=== PATIENT | female | born 1960 | race Caucasian/White ===

== ENCOUNTER → 2018-06-07 11:18 | Outpatient (CLI) | payer OTHER, SELFPAY ==
--- NOTE | 2018-06-07 | DI.RAD.S_ITS ---
PROCEDURE: XR LUMBAR SPINE 2-3V INDICATIONS: LOW BACK PAIN TECHNIQUE: 2 views of the lumbar spine were acquired. COMPARISON: [facility], CR, XR LUMBAR SPINE 2 OR 3VW, 11/08/2014, 13:12. FINDINGS: Bones: 5 [id number] vertebrae are present. There is normal bony alignment. No new vertebral body compression fractures, and the L1 vertebral body previously present compression fracture appears stable over time. No suspicious bony lesions. Soft tissues: Overlying bowel gas pattern is normal. No suspicious soft tissue calcifications. IMPRESSION: Previously present moderately severe degenerative disc disease and facet osteoarthritis has only minimally worsened from 11/08/14. A prior moderate wedge compression fracture involving L1 is again noted without worsening, and no new compression fractures seen. Significant spinal or foraminal stenosis likely is present given the degree of degeneration seen. Dictated by: Alec Carvalho M.D. on 06/07/2018 at 13:27 Approved by: Alec Carvalho M.D. on 06/07/2018 at 13:29
--- NOTE | 2018-06-07 | DI.RAD.S_ITS ---
PROCEDURE: XR HIP W PEL IF DONE RT 2V INDICATIONS: RIGHT HIP PAIN TECHNIQUE: 2 views of the hip were acquired. COMPARISON: None. FINDINGS: Bones: No fractures or dislocations. No suspicious bony lesions. The visualized pelvic ring appears intact. Soft tissues: No suspicious soft tissue calcifications or masses. IMPRESSION: A mild degree of hip joint osteoarthritis appears present but no recent or chronic trauma is found. Dictated by: lAec Carvalho M.D. on 06/07/2018 at 13:29 Approved by: Alec Carvalho M.D. on 06/07/2018 at 13:30
== END ==
PROVIDERS: PCP Family Medicine
DX: M54.5 Low back pain (principal); M51.36 Other intervertebral disc degeneration, lumbar region; M47.816 Spondylosis without myelopathy or radiculopathy, lumbar region; M48.56XD Collapsed vertebra, not elsewhere classified, lumbar region, subsequent encounter for fracture with routine healing; M25.551 Pain in right hip; M16.11 Unilateral primary osteoarthritis, right hip
CPT/HCPCS: 72100; 73502

== ENCOUNTER → 2018-12-01 11:59 | Outpatient (CLI) | payer OTHER, SELFPAY ==
--- NOTE | 2018-12-01 | DI.MG.S_ITS ---
BILATERAL DIGITAL SCREENING MAMMOGRAM 3D/2D WITH CAD: 12/01/2018 CLINICAL: Routine screening. Family history of breast cancer. Comparison is made to exam dated: 07/10/2014 mammogram - [facility]. There are scattered fibroglandular elements in both breasts. Current study was also evaluated with a Computer Aided Detection (CAD) system. There is an oval equal density focal asymmetry in the left breast at 6 o'clock anterior depth. No other significant masses, calcifications, or other findings are seen in either breast. IMPRESSION: INCOMPLETE: NEEDS ADDITIONAL IMAGING EVALUATION Focal asymmetry in the left breast is indeterminate. A diagnostic mammogram with additional views with possible ultrasound are recommended. This exam was interpreted at Station ID: [id number]. NOTE: For mammograms, a report in lay terms will be sent to the patient. Approximately 15% of breast malignancies will not be visualized mammographically. In the management of a palpable breast mass, a negative mammogram must not discourage biopsy of a clinically suspicious lesion. Electronically Signed By: Felton Allen M.D. slc/:12/02/2018 08:08:44 letter sent: Additional Imaging Needed ACR BI-RADS Category 0: Incomplete [id number]
== END ==
PROVIDERS: PCP Family Medicine; Visit Provider Family Medicine
DX: Z12.31 Encounter for screening mammogram for malignant neoplasm of breast (principal); Z80.3 Family history of malignant neoplasm of breast
CPT/HCPCS: 77063; 77067

== ENCOUNTER → 2018-12-20 12:26 | Outpatient (CLI) | payer OTHER, MEDICAID, SELFPAY ==
--- NOTE | 2018-12-20 | DI.US.S_ITS ---
ULTRASOUND OF LEFT BREAST: 12/20/2018 CLINICAL: Patient returns today to evaluate an architectural distortion in the left breast. Comparison is made to exams dated: 12/20/2018 mammogram, 12/01/2018 mammogram - [facility], and 07/10/2014 mammogram - [facility]. Color flow and real-time ultrasound of the left breast were performed on the areas of interest. Malloy scale images of the real-time examination were reviewed. There is a 0.4 cm x 0.5 cm x 0.3 cm irregular mass in the left breast at 4 o'clock anterior depth. This irregular mass is hypoechoic. This correlates as an incidental finding. IMPRESSION: SUSPICIOUS OF MALIGNANCY The 0.4 cm x 0.5 cm x 0.3 cm irregular mass in the left breast is at a low suspicion for malignancy. An ultrasound guided biopsy is recommended. There is no sonographic abnormality seen in the left breast to correspond with the subtle mammography finding in the lower outer quadrant. This region is most consistent with normal fibroglandular tissue. This exam was interpreted at Station ID: [id number]. SUMMARY: This was discussed with the patient by the radiologist Dr. Pendleton at the time of the exam. Electronically Signed By: Elvia goode/:12/20/2018 15:39:11 letter sent: Biopsy Required Ultrasound BI-RADS: 4a Low suspicion for malignancy
--- NOTE | 2018-12-20 | DI.MG.S_ITS ---
UNILATERAL LEFT DIGITAL DIAGNOSTIC MAMMOGRAM 3D/2D WITH ADDITIONAL VIEWS: 12/20/2018 CLINICAL: Additional evaluation requested from prior study. Comparison is made to exams dated: 12/01/2018 mammogram - [facility] and 07/10/2014 mammogram - [facility]. There are scattered fibroglandular elements in left breast. The oval equal density focal asymmetry in the left breast at 6 o'clock anterior depth is less prominent on additional views. No other significant masses or calcifications are seen in the breast. IMPRESSION: INCOMPLETE: NEEDS ADDITIONAL IMAGING EVALUATION The oval equal density focal asymmetry in the left breast likely represents fibroglandular tissue but is indeterminate. A targeted ultrasound of the left breast is recommended and will be performed immediately following this exam. This exam was interpreted at Station ID: [id number]. NOTE: For mammograms, a report in lay terms will be sent to the patient. Approximately 15% of breast malignancies will not be visualized mammographically. In the management of a palpable breast mass, a negative mammogram must not discourage biopsy of a clinically suspicious lesion. Electronically Signed By: Elvia Serrano M.D. lk/:12/20/2018 13:41:31 ACR BI-RADS Category 0: Incomplete [id number]
== END ==
PROVIDERS: PCP Family Medicine; Visit Provider Family Medicine
DX: R92.8 Other abnormal and inconclusive findings on diagnostic imaging of breast (principal); N63.23 Unspecified lump in the left breast, lower outer quadrant
CPT/HCPCS: 76642; 77065; G0279

== ENCOUNTER → 2019-02-02 09:07 | Outpatient (CLI) | payer OTHER, MEDICAID, SELFPAY ==
--- NOTE | 2019-02-02 | DI.US.S_ITS ---
ULTRASOUND GUIDED BIOPSY LEFT BREAST USING VACUUM DEVICE WITH POST MAMMOGRAPHIC AND ULTRASOUND IMAGIN02/02/2019 CLINICAL: Left breast mass. PATIENT CONSENT: Risks (minor bleeding, infection, vasovagal reaction and repeat procedure), benefits and alternatives were explained to the patient and written informed consent was obtained. Correlation is made to exams dated: 12/20/2018 ultrasound, 12/20/2018 mammogram, 12/01/2018 mammogram - [facility], 07/10/2014 ultrasound, and 07/10/2014 mammogram - [facility]. An ultrasound guided biopsy using real-time ultrasound was performed for the oval mass located in the left breast at 4 o'clock anterior depth. This was described on the previous ultrasound report. The skin was prepped in the usual manner. Local anesthetic was administered to the access site. The abnormality was approached from the lateral aspect. A 13 gauge biopsy needle was placed adjacent to the abnormality under ultrasound guidance. Once the needle was documented to be in the correct location, five specimens were obtained using the Mammotome biopsy system. Post procedure mammographic and ultrasound imaging demonstrates the clip at the targeted area. The specimens were sent to the laboratory for pathological analysis. IMPRESSION: ULTRASOUND GUIDED BIOPSY BENIGN Ultrasound guided biopsy of the mass in the left breast anterior depth was successful. Pathology indicates benign stromal fibrosis with portions of cysts. Pathology results are concordant with imaging findings. Return to annual mammogram screening schedule is recommended. This exam was interpreted at Station ID: [id number]. Noman Watson M.D. fx,aty/:02/08/2019 19:21:40
--- NOTE | 2019-02-02 | PATH_ITS ---
[facility] Accession Number: [id number] . 01 Material submitted: . breast - LEFT BREAST 4:00 2 CM FN MASS . 01 Clinical history: . LEFT BREAST MASS . 01 Diagnosis: Left Breast, Mass At 4 o'clock, 2 cm From Nipple, Biopsy: Breast parenchyma with stromal fibrosis and portions of cyst wall. Negative for atypia, carcinoma in situ, and malignancy. MRV 02/05/2019 0729 Local . 01 Comment: Deeper levels are examined. Clinical and radiographic correlation is necessary. . 01 Electronically signed: . Regi Xavier MD, Pathologist NPI- [id number] . 01 Gross description: . Received one formalin-filled container labeled with the patient's name and designated left breast 4 o'clock 2 cm FN mass. The specimen is received with a plastic filter in container, sample loose in container and consists of multiple yellow-amaya, rough, partially cylindrical-shaped portions of tissue with an average diameter of 0.2-0.3 cm and range in length from 0.6 cm to 1.4 cm. The specimen is entirely submitted in one cassette. No collection date or time on container. Admitting date per requisition: 02/02/19. Order time per requisition: 10:10. Possible total fixation time: Approximately 12 hours. ([id number]) /FRJuan M 02/03/2019224 Local . 01 Pathologist provided ICD-10: N63.0 . 01 CPT . 619474 Performed at: 01 [facility] [address] [place] [address], [place], [place] [id number] MD Michael Elizabeth MD Phone: [phone]
--- NOTE | 2019-02-02 | DI.MG.S_ITS ---
UNILATERAL LEFT DIGITAL DIAGNOSTIC MAMMOGRAM POST-NEEDLE BIOPSY: 02/02/2019 CLINICAL: Abnormal Mammogram. Comparison is made to exams dated: 12/20/2018 mammogram, 12/01/2018 mammogram - [facility], 07/10/2014 ultrasound, and 07/10/2014 mammogram - [facility]. There are scattered fibroglandular elements in left breast. There is a marker clip in the appropriate position in the left breast at 4 o'clock at the biopsy site. IMPRESSION: POST PROCEDURE MAMMOGRAM FOR MARKER PLACEMENT There was a successful marker clip placement in the left breast at the biopsy site This exam was interpreted at Station ID: [id number]. NOTE: For mammograms, a report in lay terms will be sent to the patient. Approximately 15% of breast malignancies will not be visualized mammographically. In the management of a palpable breast mass, a negative mammogram must not discourage biopsy of a clinically suspicious lesion. Electronically Signed By: Noman Syed M.D. fx/:02/02/2019 11:25:18 ACR BI-RADS Category Post-procedure mammogram for marker placement
== END ==
PROVIDERS: PCP Family Medicine; Visit Provider Family Medicine
DX: N60.32 Fibrosclerosis of left breast (principal); N60.02 Solitary cyst of left breast
CPT/HCPCS: 19083; 77065

== ENCOUNTER 2019-04-16 17:16 | Emergency (ER) | payer OTHER, MEDICAID, SELFPAY ==
[2019-04-16 17:26] VITALS: BP 150/73; PULSE 65; RESP 18; TEMP 36.9; O2SAT 97; BMI 30.9
[2019-04-16 18:10] LABS: Add Manual Diff / Slide Review NO; Basophils Absolute Auto 100 /uL (0-100); Basophils Percent Auto 0.6 % (0-2); Eosinophils Absolute Auto 100 /uL (0-450); Eosinophils Percent Auto 1.4 % (2-4); Hematocrit 40.6 % (36-46); Hemoglobin 13.7 g/dL (12.0-16.0); Lymphocytes Absolute Auto 2400 /uL (1100-4500); Lymphocytes Percent Auto 24.3 % (25-40); Mean Corpuscular HGB Conc 33.6 % (30-36); Mean Corpuscular Hemoglobin 31.5 PG (26-34); Mean Corpuscular Volume 93.9 fL (80-100); Monocytes Absolute Auto 700 /uL (0-900); Monocytes Percent Auto 6.9 % (3-14); Neutrophils Absolute Auto 6600 /uL (1500-7000); Neutrophils Percent Auto 66.8 % (50-75); Platelet Count 252 X10^3/uL (150-400); Red Blood Cell Count 4.33 X10^6/uL (4.0-5.2); Red Cell Distribution Width 13.4 % (11.6-14.8); White Blood Cell Count 9.9 X10^3/uL (4.5-11.0)
[2019-04-16 18:11] LABS: Alanine Aminotransferase 25 IU/L (<35); Albumin 4.3 g/dL (3.5-5.0); Albumin Globulin Ratio 1.3 (1.0-2.8); Alkaline Phosphatase 90 U/L (38-126); Aspartate Aminotransferase 31 IU/L (14-36); Bilirubin Total 0.3 mg/dL (0.2-1.3); Blood Urea Nitrogen 21 mg/dL (7-17); Calcium 9.2 mg/dL (8.4-10.2); Carbon Dioxide 27 mmol/L (22-32); Chloride 106 mmol/L (98-107); Estimated Glomerular Filt Rate > 60.0 mL/min (>60); Globulin 3.3 g/dL (1.7-4.1); Glucose 106 mg/dL (80-110); HEMOLYSIS < 15 (0-50); Potassium 4.4 mmol/L (3.4-5.1); Sodium 140 mmol/L (137-145); Total Protein 7.6 g/dL (6.3-8.2)
--- NOTE | 2019-04-16 19:44 | ED_ITS ---
HPI - Back Pain/Injury General Chief Complaint: Back Pain/Injury Stated Complaint: patient states possible kidney stone Time Seen by Provider: 04/16/19 19:44 Source: patient Mode of arrival: Ambulatory Limitations: no limitations History of Present Illness HPI Narrative: 59F Smoker with recent parathyroid surgery presents with 5-7 days of right flank pain that now radiates into her groin. She denies any provocati on or palliation. She denies fever or chills. She denies any trouble with urination. She denies any history of kidney stones. She denies any trouble with bowel movements. She was sent here from the walk-in clinic for evaluation of possible kidney stone MD Complaint: back pain Onset (ago): day(s) Duration: intermittent Similar Symptoms Previously: No Location: right flank Severity: moderate Quality: sharp Radiation: groin Relieving factors: none Exacerbating factors: none Related Data Home Medications Medication Instructions Recorded Confirmed atorvastatin 40 mg PO HS #0 02/04/16 04/16/19 fluoxetine 40 mg capsule 40 mg PO DAILY 04/16/19 04/16/19 omeprazole 20 mg capsule,delayed 20 mg PO DAILY 04/16/19 04/16/19 release Previous Rx's Medication Instructions Recorded benzonatate [Tessalon Perles] 100 mg PO BID #30 cap 02/04/16 hydrocodone-acetaminophen 1 tab PO Q4-6H PRN #10 tab 04/16/19 ketorolac 10 mg PO Q6H PRN #14 tab 04/16/19 ondansetron 4 mg PO TID-QID PRN #10 tab 04/16/19 tamsulosin [Flomax] 0.4 mg PO DAILY #10 cap 04/16/19 Allergies Allergy/AdvReac Type Severity Reaction Status Date / Time terbinafine [From LAMISIL] Allergy Unknown Unverified 04/16/19 16:55 Review of Systems Constitutional Constitutional: Denies chills, Denies fatigue, Denies fever(s), Denies frequent falls, Denies lethargy and Denies weakness Eyes Eyes: Denies change in vision, Denies eye discharge, Denies irritation and Denies loss of vision ENT Ears, Nose, Mouth, and Throat: Denies change in voice, Denies dizziness, Denies neck pain, Denies sore throat and Denies throat swelling Cardiovascular Cardiovascular: Denies chest pain, Denies irregular heart rhythm, Denies lightheadedness, Denies palpitations, Denies dyspnea, Denies dyspnea on exertion and Denies orthopnea Respiratory Respiratory: Denies cough, Denies dyspnea, Denies dyspnea on exertion and Denies wheezing Gastrointestinal Gastrointestinal: Denies abdominal pain, Denies change in bowel habits, Denies diarrhea, Denies nausea and Denies vomiting Genitourinary Genitourinary: Denies hematuria, Reports flank pain, Denies urinary incontinence and Denies urinary urgency Musculoskeletal Musculoskeletal: Reports back pain, Denies muscle weakness, Denies neck pain, Denies numbness and Denies tingling Integumentary/Breasts Skin/Breast: Denies pruritus, Denies erythema, Denies rash and Denies wounds Neurologic Neurologic: Denies behavioral changes, Denies confusion, Denies dizziness, Denies frequent falls, Denies loss of vision, Denies numbness, Denies tingling and Denies weakness Psychiatric Psychiatric: Denies anxiety, Denies behavioral changes, Denies confusion, Denies depression, Denies homicidal ideation and Denies suicidal ideation Endocrine Endocrine: Denies fatigue, Denies flushing and Denies palpitations Hematologic/Lymphatic Hematologic/Lymphatic: Denies easy bruising Allergic/Immunologic Allergic/Immunologic: Denies urticaria, Denies throat swelling and Denies wheezing Patient History Social History Smoking Status: Former smoker Smoking Status: Former smoker Exam Narrative Exam Narrative: GENERAL: [59] year old patient appears stated age. Well- nourished, well-developed patient, in mild distress. HEAD: Atraumatic. Normocephalic. EYES: Pupils equal round and reactive. Extraocular motions intact. No scleral icterus. No injection or drainage. ENT: Nose without bleeding, purulent drainage. Throat without erythema, tonsillar hypertrophy or exudate. Airway patent. NECK: Trachea midline. Non tender CARDIOVASCULAR: Regular rate and rhythm without murmurs, gallops, or rubs. RESPIRATORY: Clear to auscultation. Breath sounds equal bilaterally. No wheezes, rales, or rhonchi. GASTROINTESTINAL: Abdomen soft, non-tender, nondistended. EXTREMITIES: No edema or joint tenderness. BACK: Nontender without deformity or crepitance. No flank tenderness. NEURO: AOx3. SKIN: No rash or erythema of visible areas Initial Vital Signs Initial Vital Signs: Vital Signs Temperature 98.4 F 04/16/19 17:26 Pulse Rate 65 04/16/19 17:26 Respiratory Rate 18 04/16/19 17:26 Blood Pressure 150/73 H 04/16/19 17:26 Pulse Oximetry 97 04/16/19 17:26 Course Course Course Narrative: Patient has near complete resolution of symptoms after the above-stated therapies Orders Ordered: Discontinued Medications Hydrocodone Bitart/Acetaminophen (Vicodin 5/325 Prepack) 1 bottle MISC SEEINSTR ONE Stop: 04/16/19 21:06 Last Admin: 04/16/19 21:34 Dose: 1 bottle Documented by: PATRICIA Sodium Chloride (Normal Saline 0.9%) 1,000 mls @ 1,000 mls/hr IV BOLUS ONE Stop: 04/16/19 20:43 Last Infusion: 04/16/19 21:35 Dose: 0 mls/hr Documented by: Admin: 04/16/19 20:21 Dose: 1,000 mls/hr Documented by: FREDY Ketorolac Tromethamine (Toradol) 15 mg IV NOW ONE Stop: 04/16/19 19:45 Last Admin: 04/16/19 20:19 Dose: 15 mg Documented by: FREDY Ondansetron HCl (Zofran Odt Prepack) 1 bottle MISC SEEINSTR ONE Stop: 04/16/19 21:06 Last Admin: 04/16/19 21:34 Dose: 1 bottle Documented by: PATRICIA Vital Signs Vital signs: Vital Signs - 8 hr 04/16/19 17:26 Temperature 98.4 F Pulse Rate 65 Respiratory Rate 18 Blood Pressure 150/73 H Pulse Oximetry 97 MDM - Back Pain/Injury Lab Data Result diagrams: 04/16/19 17:51 04/16/19 17:51 Labs: Lab Results 04/16/19 04/16/19 Range/Units 17:51 17:51 WBC 9.9 (4.5-11.0) X10^3/uL RBC 4.33 (4.0-5.2) X10^6/uL Hgb 13.7 (12.0-16.0) g/dL Hct 40.6 (36-46) % MCV 93.9 (80-100) fL MCH 31.5 (26-34) PG MCHC 33.6 (30-36) % RDW 13.4 (11.6-14.8) % Plt Count 252 (150-400) X10^3/uL Neut % (Auto) 66.8 (50-75) % Lymph % (Auto) 24.3 L (25-40) % [place] % (Auto) 6.9 (3-14) % Eos % (Auto) 1.4 L (2-4) % Baso % (Auto) 0.6 (0-2) % Neut # (Auto) 6600 (3560-8636) /uL Lymph # (Auto) 2400 (7246-5481) /uL [place] # (Auto) 700 (0-900) /uL Eos # (Auto) 100 (0-450) /uL Baso # (Auto) 100 (0-100) /uL Sodium 140 (137-145) mmol/L Potassium 4.4 (3.4-5.1) mmol/L Chloride 106 (98-107) mmol/L Carbon Dioxide 27 (22-32) mmol/L BUN 21 H (7-17) mg/dL Creatinine 0.70 (0.52-1.04) mg/dL Estimated GFR > 60.0 (>60) mL/min BUN/Creatinine Ratio 30.0 H (6-22) Glucose 106 (80-110) mg/dL Calcium 9.2 (8.4-10.2) mg/dL Total Bilirubin 0.3 (0.2-1.3) mg/dL AST 31 (14-36) IU/L ALT 25 (<35) IU/L Alkaline Phosphatase 90 (38-126) U/L Total Protein 7.6 (6.3-8.2) g/dL Albumin 4.3 (3.5-5.0) g/dL Globulin 3.3 (1.7-4.1) g/dL Albumin/Globulin Ratio 1.3 (1.0-2.8) Imaging Data CT scan - abdomen/pelvis: Radiologist's Impression: Flaca Burger K 59 F [address] [address] [address] Scan Report Signed Patient: Flaca Burger KMR#: [id number] : 9Acct:[id number] Age/Sex: 59 / FDate of Service: 04/16/19 Loc: ED Accession Number: [id number] Procedure: CT kidney ureter bladder (KUB) Ordering Provider: Reilly Walsh D.O. PROCEDURE: CT KIDNEY URETER BLADDER (KUB) INDICATIONS: L flank pain, hematuria TECHNIQUE: Noncontrast 5 mm thick sections acquired from the diaphragms to the symphysis. 5 mm thick coronal and sagittal reformats were then performed. For radiation dose reduction, the following was used: automated exposure control, adjustment of mA and/or kV according to patient size. COMPARISON: [facility], CR, XR LUMBAR SPINE 2-3V, 06/07/2018, 11:40. FINDINGS: Image quality: Excellent. Lung bases: Lung bases are clear. Heart size is normal. Urinary system: Both kidneys are normal in size. A 3 mm stone noted in the right UVJ causing mild to moderate right-sided hydronephrosis. No left-sided renal stone or hydronephrosis. There is mild right perinephric stranding which could be due to hydronephrosis, however superimposed urinary tract infection/pyelonephritis cannot be excluded by imaging alone. Bladder wall thickness is normal; no calcified bladder stones. Other solid organs: Liver is normal in size. Gallbladder is normal. Pancreas is normal in contours. Spleen is normal in size. No adrenal nodules. Peritoneum and bowel: Unenhanced bowel loops demonstrate normal wall thickness and caliber. No free fluid or air. The appendix is normal. Nodes and vessels: No retroperitoneal or mesenteric adenopathy by size criteria. Aorta and inferior vena cava are normal in caliber. Scattered atherosclerotic calcifications involving the abdominal and pelvic vasculature. Abdominal wall: No ventral hernias. Pelvis: No free pelvic fluid. No inguinal adenopathy. Small fat containing left inguinal hernia. Bones: No suspicious bony lesions. Chronic appearing L1 compression deformity is stable compared to prior plain film radiograph series. No acute vertebral body compression fractures. Spine degenerative disc disease and facet arthropathy. IMPRESSION: 1. 3 mm stone in the right UVJ causing mild to moderate right-sided hydronephrosis. 2. No left-sided renal stone or hydronephrosis. 3. Mild right perinephric stranding which could be related to hydronephrosis ve rsus superimposed urinary tract infection. Recommend correlation with urinalysis data. Dictated by: Jessie Casillas MD, PhD on 04/16/2019 at 20:25 Approved by: Jessie Casillas MD, PhD on 04/16/2019 at 20:30 Discharge Plan Departure Patient Disposition: Home Clinical Impression: Kidney stone on right side Discharge Date/Time: 04/16/19 21:33 Instructions: Kidney Stones -- Adult Activity Restrictions/Additional Instructions: *You have been diagnosed with [ R sided kidney stone ] *What to do: *Take medications as directed *Follow up with your primary care provider in 2-3 days, call for an appointment. Let them know you were seen in the Emergency Department and that we ask that you be seen in follow up *Return to ER if you should have any new, worsening or concerning symptoms, such as [fever, shaking chills, vomiting, worsening pain or other bothersome symptoms ] Prescriptions: New hydrocodone-acetaminophen 5-325 mg tablet 1 tab PO Q4-6H PRN (Reason: pain) Qty: 10 RF: 0 ketorolac 10 mg tablet 10 mg PO Q6H PRN (Reason: pain) Qty: 14 RF: 0 tamsulosin [Flomax] 0.4 mg capsule 0.4 mg PO DAILY Qty: 10 RF: 0 ondansetron 4 mg tablet,disintegrating 4 mg PO TID-QID PRN (Reason: nausea and vomiting) Qty: 10 RF: 0 No Action fluoxetine 40 mg capsule 40 mg PO DAILY RF: 0 omeprazole 20 mg capsule,delayed release(DR/EC) 20 mg PO DAILY RF: 0 atorvastatin 40 MG tablet 40 mg PO HS Qty: 0 RF: 0 benzonatate [Tessalon Perles] 100 MG capsule 100 mg PO BID Qty: 30 RF: 0 Referrals: Krystal Thornton MD [Primary Care Provider] -
[2019-04-16] MEDS: KETOROLAC 60 MG/2 ML VIAL 15 MG IV (20:19)
[2019-04-16] MEDS: SODIUM CHLORIDE 0.9% 1,000 ML 1000 ML IV (20:21)
[2019-04-16 21:28] VITALS: BP 145/74; PULSE 65; RESP 16; O2SAT 98
--- NOTE | 2019-04-16 21:33 | PC.NURSE ---
right ac iv, dc , catheter all intact.
[2019-04-16] MEDS: ONDANSETRON 4 MG ODT PREPACK 1 BOTTLE MISC (21:34)
[2019-04-16] MEDS: HYDROCODONE/ACET 5/325 PREPACK 1 BOTTLE MISC (21:34)
== END 2019-04-16 21:33 | disposition home or self-care (01) ==
PROVIDERS: Emergency Medicine; Emergency Provider Emergency Medicine; PCP Family Medicine
DX: N20.0 Calculus of kidney (principal)
CPT/HCPCS: 36415; 74176; 80053; 85025; 87086; 96361; 96374; 99284; J1885

== ENCOUNTER → 2019-08-24 10:57 | Outpatient (CLI) | payer OTHER, MEDICAID, SELFPAY ==
--- NOTE | 2019-08-24 11:11 | DI.CT.S_ITS ---
PROCEDURE: CT ABDOMEN PELVIS WO CON INDICATIONS: Calculus of kidney TECHNIQUE: Noncontrast 5 mm thick sections acquired from the diaphragms to the symphysis. 5 mm thick coronal and sagittal reformats were then performed. For radiation dose reduction, the following was used: automated exposure control, adjustment of mA and/or kV according to patient size. COMPARISON: [facility], CT, CT KIDNEY URETER BLADDER (KUB), 04/16/2019, 19:49. FINDINGS: Image quality: Excellent. Lung bases: Lung bases are clear. Heart size is normal. Urinary system: Both kidneys are normal in size. No kidney stones. No hydronephrosis or perinephric fat stranding. Both ureters appear non-dilated throughout their expected courses. Bladder wall thickness is normal; no calcified bladder stones. Other solid organs: Liver is normal in size. Gallbladder appears normal. Pancreas is normal in contours. Spleen is normal in size. No adrenal nodules. Peritoneum and bowel: Unenhanced bowel loops demonstrate normal wall thickness and caliber. No free fluid or air. Nodes and vessels: No retroperitoneal or mesenteric adenopathy by size criteria. Aorta and inferior vena cava are normal in caliber. Abdominal wall: No ventral hernias. Pelvis: No free pelvic fluid. No inguinal hernias or adenopathy. Bones: No suspicious bony lesions. No vertebral body compression fractures. IMPRESSION: Resolution of the small far distal right ureteral stone causing hydronephrosis and hydroureter unilaterally rescanning 04/16/19. No residual hydronephrosis is present, the calculus appears to have completely passed from the urinary tract. Dictated by: Alec Carvalho M.D. on 08/24/2019 at 12:39 Approved by: Alec Carvalho M.D. on 08/24/2019 at 12:42
== END ==
PROVIDERS: PCP Family Medicine; Referring Provider Physician Assistant; Visit Provider Physician Assistant
DX: N20.0 Calculus of kidney (principal)
CPT/HCPCS: 74176

== ENCOUNTER 2020-03-07 05:59 | Emergency (ER) | payer OTHER, MEDICAID, SELFPAY ==
[2020-03-07 06:04] VITALS: BP 126/78; PULSE 66; RESP 12; TEMP 36.2; O2SAT 97; BMI 31.6
--- NOTE | 2020-03-07 06:07 | ED.ABDPAIN ---
HPI - Abdominal Pain General Chief Complaint: Urogenital-Female Stated Complaint: Think she has a Kidney stone on left side Time Seen by Provider: 03/07/20 06:07 Source: patient Mode of arrival: Ambulatory Limitations: no limitations History of Present Illness HPI narrative: Patient is a 59-year-old female who presents with left-sided flank pain. She is been ongoing for number of weeks and is now radiating around to her front. She was seen by her primary care doctor who thought it might be a pulled muscle. She has been taking NSAIDs without any relief. She occasionally gets nauseous. She does have a history of kidney stone she says this feels a little bit different previously she had urinary urgency which she does not have today. She has not had any fever or chills. She denies any injury MD complaint: flank pain Onset (ago): week(s) Pain Consistency: constant Location: L flank Severity: moderate Quality: sharp Radiation: LLQ Relieving factors: nothing Exacerbating factors: nothing Related Data Home Medications Medication Instructions Recorded Confirmed atorvastatin 40 mg PO HS #0 02/04/16 04/16/19 fluoxetine 40 mg capsule 40 mg PO DAILY 04/16/19 04/16/19 omeprazole 20 mg capsule,delayed 20 mg PO DAILY 04/16/19 04/16/19 release Previous Rx's Medication Instructions Recorded benzonatate [Tessalon Perles] 100 mg PO BID #30 cap 02/04/16 hydrocodone-acetaminophen 1 tab PO Q4-6H PRN #10 tab 04/16/19 ketorolac 10 mg PO Q6H PRN #14 tab 04/16/19 ondansetron 4 mg PO TID-QID PRN #10 tab 04/16/19 tamsulosin [Flomax] 0.4 mg PO DAILY #10 cap 04/16/19 cyclobenzaprine 5 mg PO TID PRN #10 tab 03/07/20 Allergies Allergy/AdvReac Type Severity Reaction Status Date / Time terbinafine [From LAMISIL] Allergy Unknown Unverified 03/07/20 06:11 Review of Systems Review of Systems Narrative: GENERAL: Denies chills, fatigue, malaise, fever, sweats, travel HEENT: Denies sinus pain, ear pain, sore throat, difficulty swallowing, neck pain RESPIRATORY: Denies dyspnea, cough, wheezing, hemoptysis, sputum. CARDIOVASCULAR: Denies chest pain, palpitations, orthopnea, edema GASTROINTESTINAL: Denies nausea, vomiting, abdominal pain, diarrhea, constipation, melena. : Left flank pain, see HPI MUSCULOSKELETAL: Denies weakness, joint pain, or bony pain SKIN: No rash, no erythema, no pruritus NEUROLOGIC: Denies weakness, dizziness, headache, numbness, change in speech, confusion PSYCHIATRIC: No concerning psychosocial issues. 12 point review of systems is negative except for those stated above and HPI Patient History Social History Smoking Status: Former smoker Smoking Status: Former smoker Exam Initial Vital Signs Initial Vital Signs: Vital Signs Temperature 97.2 F L 03/07/20 06:04 Pulse Rate 66 03/07/20 06:04 Respiratory Rate 12 03/07/20 06:04 Blood Pressure 126/78 03/07/20 06:04 Pulse Oximetry 97 03/07/20 06:04 GENERAL: Alert 59-year-old female appears uncomfortable and in no acute distress. HEENT: Head atraumatic,EOMI, pupils reactive, face symmetric, moist mucous membranes CARDIOVASCULAR: Regular rate and rhythm without murmurs, rubs or gallops. RESPIRATORY: Breath sounds equal bilaterally, no wheezes rales or rhonchi. ABDOMEN: Soft, nontender. Normoactive bowel sounds all 4 quadrants. No guarding or rebound. : Minimal left CVA tenderness EXTREMITIES: Normal range of motion, no clubbing or edema. Neurovascularly intact NEUROLOGICAL: Alert and oriented x4.Normal gait and speech. SKIN: Warm, dry, no laceration, no petechiae, no rashes or lesions. Course Orders Ordered: ED Orders 03/07/20 06:20 CT kidney ureter bladder (KUB) Stat Complete Blood Count AUTO DIFF Stat Comprehensive Metabolic Panel Stat Lipase Stat Discontinued Medications Cyclobenzaprine HCl (Cyclobenzaprine 10 Mg Tablet) 10 mg PO NOW ONE Stop: 03/07/20 06:56 Ketorolac Tromethamine (Ketorolac 60 Mg/2 Ml Vial) 15 mg IV NOW ONE Stop: 03/07/20 06:11 Last Admin: 03/07/20 06:16 Dose: 15 mg Documented by: Vital Signs Vital signs: Vital Signs - 8 hr 03/07/20 06:04 Temperature 97.2 F L Pulse Rate 66 Respiratory Rate 12 Blood Pressure 126/78 Pulse Oximetry 97 MDM - Abdominal Pain Lab Data Attestation: I reviewed the patient's lab results. Result diagrams: 03/07/20 06:20 03/07/20 06:20 Labs: Lab Results 03/07/20 03/07/20 Range/Units 06:20 06:20 WBC 9.9 (4.5-11.0) X10^3/uL RBC 4.45 (4.0-5.2) X10^6/uL Hgb 13.9 (12.0-16.0) g/dL Hct 41.8 (36-46) % MCV 93.8 (80-100) fL MCH 31.2 (26-34) PG MCHC 33.3 (30-36) % RDW 13.8 (11.6-14.8) % Plt Count 266 (150-400) X10^3/uL Neut % (Auto) 60.5 (50-75) % Lymph % (Auto) 29.3 (25-40) % [place] % (Auto) 7.8 (3-14) % Eos % (Auto) 1.9 L (2-4) % Baso % (Auto) 0.5 (0-2) % Neut # (Auto) 6000 (6302-8815) /uL Lymph # (Auto) 2900 (2897-5479) /uL [place] # (Auto) 800 (0-900) /uL Eos # (Auto) 200 (0-450) /uL Baso # (Auto) 100 (0-100) /uL Sodium 136 L (137-145) mmol/L Potassium 4.2 (3.4-5.1) mmol/L Chloride 104 (98-107) mmol/L Carbon Dioxide 29 (22-32) mmol/L BUN 17 (7-17) mg/dL Creatinine 0.66 (0.52-1.04) mg/dL Estimated GFR > 60.0 (>60) mL/min BUN/Creatinine Ratio 25.8 H (6-22) Glucose 95 (80-110) mg/dL Calcium 8.9 (8.4-10.2) mg/dL Total Bilirubin 0.4 (0.2-1.3) mg/dL AST 28 (14-36) IU/L ALT 24 (<35) IU/L Alkaline Phosphatase 62 (38-126) U/L Total Protein 7.1 (6.3-8.2) g/dL Albumin 4.0 (3.5-5.0) g/dL Globulin 3.1 (1.7-4.1) g/dL Albumin/Globulin Ratio 1.3 (1.0-2.8) Lipase 41 (23-300) U/L Point of care testing: Urine Dip Bedside Urine Glucose Negative Bedside Urine Bilirubin - Negative Bedside Urine Ketone - Negative Urine Specific [place] 1.025 Bedside Urine Occult Blood - Negative Bedside Urine pH 6.0 Bedside Urine Protein - Negative Bedside Urine Urobilinogen - Negative Bedside Urine Nitrite - Negative Bedside Urine Leukocytes - Negative Esterase Imaging Data CT scan - abdomen/pelvis: Radiologist's Impression: Preliminary report no evidence of colitis diverticulitis no obstructed obstructive uropathy or acute appendicitis MDM Narrative Medical decision making narrative: The patient likely has strained muscle. Although she does not remember any specific injury. Blood work and CT scan are overall reassuring Discharge Plan Departure Patient Disposition: Home Clinical Impression: Back strain Qualifiers: Encounter type: initial encounter Qualified Code(s): S39.012A - Strain of muscle, fascia and tendon of lower back, initial encounter Instructions: DI for Low Back Pain Activity Restrictions/Additional Instructions: *You have been diagnosed with back pain *What to do: At this time no evidence of infection or kidney stone. Increase activity as tolerated. Recommend heating pad and light stretching *Continue to take medications as directed Ibuprofen 600 mg every 6-8 hours if needed for [id number] pain Flexeril 5 mg every 8 hours if needed for muscle spasm--> SENT TO [facility] *Follow up with your primary care provider in 2-3 days *Return to ER if you should have increasing pain weakness or any new, worsening or concerning symptoms Prescriptions: New cyclobenzaprine 5 mg tablet 5 mg PO TID PRN (Reason: muscle spasm) Qty: 10 RF: 0 No Action fluoxetine 40 mg capsule 40 mg PO DAILY RF: 0 omeprazole 20 mg capsule,delayed release(DR/EC) 20 mg PO DAILY RF: 0 atorvastatin 40 MG tablet 40 mg PO HS Qty: 0 RF: 0 benzonatate [Tessalon Perles] 100 MG capsule 100 mg PO BID Qty: 30 RF: 0 hydrocodone-acetaminophen 5-325 mg tablet 1 tab PO Q4-6H PRN (Reason: pain) Qty: 10 RF: 0 ketorolac 10 mg tablet 10 mg PO Q6H PRN (Reason: pain) Qty: 14 RF: 0 tamsulosin [Flomax] 0.4 mg capsule 0.4 mg PO DAILY Qty: 10 RF: 0 ondansetron 4 mg tablet,disintegrating 4 mg PO TID-QID PRN (Reason: nausea and vomiting) Qty: 10 RF: 0 Referrals: Krystal Thornton MD [Primary Care Provider] -
--- NOTE | 2020-03-07 06:12 | PC.NURSE ---
intermittent left flank pain radiating around into front of abd and down into groin. tender to palpation on left lower abd. Reports nausea when pain is bad. No relief with ketorlac or Ibuprofen at home. NO recent injury or trauma
[2020-03-07] MEDS: KETOROLAC 60 MG/2 ML VIAL 15 MG IV (06:16)
[2020-03-07] MEDS: ONDANSETRON 4 MG/2 ML INJ (06:18)
--- NOTE | 2020-03-07 06:20 | DI.CT.S_ITS ---
PROCEDURE: CT KIDNEY URETER BLADDER (KUB) INDICATIONS: left flank pain TECHNIQUE: Noncontrast 5 mm thick sections acquired from the diaphragms to the symphysis. 5 mm thick coronal and sagittal reformats were then performed. For radiation dose reduction, the following was used: automated exposure control, adjustment of mA and/or kV according to patient size. COMPARISON: [facility], CT, CT KIDNEY URETER BLADDER (KUB), 04/16/2019, 19:49. FINDINGS: Image quality: Excellent. Lung bases: Atelectasis in lingula and right lung base. Lung bases are otherwise clear. Heart size is normal. Urinary system: Both kidneys are normal in size. No kidney stones. No hydronephrosis. Mild bilateral perinephric fat stranding. Both ureters appear non-dilated throughout their expected courses. Bladder is contracted; no calcified bladder stones. Other solid organs: Liver is normal in size. Gallbladder is normal. Pancreas is normal in contours. Spleen is normal in size. No adrenal nodules. Peritoneum and bowel: Unenhanced bowel loops demonstrate normal wall thickness and caliber. A few colonic diverticula are present. No diverticulitis. Appendix is normal. No free fluid or air. Nodes and vessels: No retroperitoneal or mesenteric adenopathy by size criteria. Aorta and inferior vena cava are normal in caliber. Abdominal wall: Small fat containing umbilical hernia. Pelvis: No free pelvic fluid. No inguinal hernias or adenopathy. Bones: No suspicious bony lesions. Mild chronic L1 vertebral body compression fracture is noted, unchanged from the last exam. Degenerative changes in lumbar spine. IMPRESSION: 1. No renal stone or hydronephrosis. 2. Mild bilateral perinephric stranding. 3. No acute inflammatory process in abdomen or pelvis. 4. Mild chronic compression fracture L1. No significant discrepancy with the cook night radiology preliminary report. Dictated by: Noman Syed M.D. on 03/07/2020 at 7:54 Approved by: Noman Syed M.D. on 03/07/2020 at 7:59
[2020-03-07 06:27] LABS: Add Manual Diff / Slide Review NO; Basophils Absolute Auto 100 /uL (0-100); Basophils Percent Auto 0.5 % (0-2); Eosinophils Absolute Auto 200 /uL (0-450); Eosinophils Percent Auto 1.9 % (2-4); Hematocrit 41.8 % (36-46); Hemoglobin 13.9 g/dL (12.0-16.0); Lymphocytes Absolute Auto 2900 /uL (1100-4500); Lymphocytes Percent Auto 29.3 % (25-40); Mean Corpuscular HGB Conc 33.3 % (30-36); Mean Corpuscular Hemoglobin 31.2 PG (26-34); Mean Corpuscular Volume 93.8 fL (80-100); Monocytes Absolute Auto 800 /uL (0-900); Monocytes Percent Auto 7.8 % (3-14); Neutrophils Absolute Auto 6000 /uL (1500-7000); Neutrophils Percent Auto 60.5 % (50-75); Platelet Count 266 X10^3/uL (150-400); Red Blood Cell Count 4.45 X10^6/uL (4.0-5.2); Red Cell Distribution Width 13.8 % (11.6-14.8); White Blood Cell Count 9.9 X10^3/uL (4.5-11.0)
[2020-03-07 06:35] LABS: Alanine Aminotransferase 24 IU/L (<35); Albumin Globulin Ratio 1.3 (1.0-2.8); Alkaline Phosphatase 62 U/L (38-126); Aspartate Aminotransferase 28 IU/L (14-36); BUN Creatinine Ratio 25.8 (6-22); Bilirubin Total 0.4 mg/dL (0.2-1.3); Blood Urea Nitrogen 17 mg/dL (7-17); Calcium 8.9 mg/dL (8.4-10.2); Carbon Dioxide 29 mmol/L (22-32); Chloride 104 mmol/L (98-107); Estimated Glomerular Filt Rate > 60.0 mL/min (>60); Globulin 3.1 g/dL (1.7-4.1); Glucose 95 mg/dL (80-110); HEMOLYSIS < 15 (0-50); Lipase 41 U/L (23-300); Potassium 4.2 mmol/L (3.4-5.1); Sodium 136 mmol/L (137-145); Total Protein 7.1 g/dL (6.3-8.2)
[2020-03-07 06:58] VITALS: BP 138/79; PULSE 56; RESP 12; O2SAT 97
[2020-03-07] MEDS: CYCLOBENZAPRINE 10 MG TABLET PO (06:59)
== END 2020-03-07 07:08 | disposition home or self-care (01) ==
PROVIDERS: Emergency Provider Emergency Medicine; PCP Family Medicine
DX: S39.012A Strain of muscle, fascia and tendon of lower back, initial encounter (principal); R11.0 Nausea; Z87.442 Personal history of urinary calculi
CPT/HCPCS: 36415; 74176; 80053; 81003; 83690; 85025; 96374; 99283; 99284; J1885; J2405

== ENCOUNTER → 2020-07-15 15:55 | Outpatient (CLI) | payer OTHER, MEDICAID, SELFPAY ==
--- NOTE | 2020-07-15 15:56 | DI.MG.S_ITS ---
BILATERAL DIGITAL SCREENING MAMMOGRAM 3D/2D WITH CAD: 07/15/2020 CLINICAL: Routine screening. Comparison is made to exams dated: 02/02/2019 mammogram, 12/20/2018 mammogram, and 12/01/2018 mammogram - [facility]. There are scattered fibroglandular elements in both breasts. Current study was also evaluated with a Computer Aided Detection (CAD) system. There is a biopsy clip in the left breast. No significant masses, calcifications, or other findings are seen in either breast. There has been no significant interval change. IMPRESSION: NEGATIVE There is no mammographic evidence of malignancy. A 1 year screening mammogram is recommended. This exam was interpreted at Station ID: [id number]. NOTE: For mammograms, a report in lay terms will be sent to the patient. Approximately 15% of breast malignancies will not be visualized mammographically. In the management of a palpable breast mass, a negative mammogram must not discourage biopsy of a clinically suspicious lesion. Electronically Signed By: Felton sargent/lew:07/18/2020 11:41:59 letter sent: Normal Exam ACR BI-RADS Category 1: Negative [id number]
== END ==
PROVIDERS: PCP Family Medicine; Referring Provider Family Medicine; Visit Provider Family Medicine
DX: Z12.31 Encounter for screening mammogram for malignant neoplasm of breast (principal)
CPT/HCPCS: 77063; 77067

== ENCOUNTER 2020-09-22 14:38 | Emergency (ER) | payer OTHER, MEDICAID, SELFPAY ==
[2020-09-22 14:55] VITALS: BP 128/67; PULSE 71; RESP 16; TEMP 36.4; O2SAT 98
--- NOTE | 2020-09-22 15:00 | DI.RAD.S_ITS ---
PROCEDURE: XR WRIST LT MIN 3V INDICATIONS: fall/wrist pain TECHNIQUE: 4 views of the wrist were acquired. COMPARISON: None. FINDINGS: Bones: There is an impacted, comminuted fracture of the distal radius. No claudia intra-articular involvement can be seen. There is minimal dorsal angulation of the fracture fragments. No additional fractures are detected. No suspicious lytic or blastic lesions are seen. Degenerative changes are seen throughout, which are most prominent involving the 1st carpometacarpal joint. Milder degenerative changes are seen elsewhere. Scaphoid view: No navicular fractures are seen. Soft tissues: No suspicious soft tissue calcifications. IMPRESSION: Distal radius fracture, with impaction and mild dorsal angulation of the fracture fragments. Mild comminution is seen. If it would be helpful for clinical management decision making, please consider a dedicated wrist CT for further evaluation. Dictated by: Julio Meadows M.D. on 09/22/2020 at 14:24 Approved by: Julio Meadows M.D. on 09/22/2020 at 14:25
[2020-09-22 17:00] VITALS: BP 146/80; PULSE 78; RESP 17; O2SAT 99
--- NOTE | 2020-09-22 17:33 | ED.UPPEXIN ---
HPI - Extremity Injury (Upper) General Chief Complaint: Extremity Injury, Upper Stated Complaint: Fall at [facility], Arm Injury Time Seen by Provider: 09/22/20 16:14 Source: patient Mode of arrival: Ambulatory History of Present Illness HPI narrative: Patient is a 60-year-old female who presents with left wrist pain. She states that she was walking down a ditch to get to the water to get into a cardiac when she slipped and fell. Her left hand and wrist caught her. She also landed on her bottom. No head injury she has been able to ambulate without any difficulty. No numbness tingling or weakness. Able to move all fingers. Also complaining of left buttock pain, she states no pain while walking Related Data Home Medications Medication Instructions Recorded Confirmed atorvastatin 40 mg tablet 40 mg PO HS #0 02/04/16 04/16/19 fluoxetine 40 mg capsule 40 mg PO DAILY 04/16/19 04/16/19 omeprazole 20 mg capsule,delayed 20 mg PO DAILY 04/16/19 04/16/19 release Previous Rx's Medication Instructions Recorded benzonatate 100 mg capsule 100 mg PO BID #30 cap 02/04/16 (Terra Wagoner) hydrocodone 5 mg-acetaminophen 325 1 tab PO Q4-6H PRN #10 tab 04/16/19 mg tablet ketorolac 10 mg tablet 10 mg PO Q6H PRN #14 tab 04/16/19 ondansetron 4 mg disintegrating 4 mg PO TID-QID PRN #10 tab 04/16/19 tablet tamsulosin 0.4 mg capsule (Flomax) 0.4 mg PO DAILY #10 cap 04/16/19 cyclobenzaprine 5 mg tablet 5 mg PO TID PRN #10 tab 03/07/20 hydrocodone 5 mg-acetaminophen 325 1 tab PO Q6H PRN #10 tab 09/22/20 mg tablet Allergies Allergy/AdvReac Type Severity Reaction Status Date / Time terbinafine [From LAMISIL] Allergy Unknown Unverified 03/07/20 06:11 Review of Systems Review of Systems Narrative: GENERAL: Denies chills,fever HEENT: Denies throat pain RESPIRATORY: Denies dyspnea, cough, wheezing CARDIOVASCULAR: Denies chest pain, palpitations GASTROINTESTINAL: Denies nausea, vomiting MUSCULOSKELETAL: See HPI SKIN: No rash, no laceration, no pruritus NEUROLOGIC: Denies weakness, dizziness, headache, numbness 8 point review of systems is negative except for those stated above and HPI Patient History Social History Smoking Status: Former smoker Smoking Status: Former smoker alcohol intake frequency: a few times a week Substance Use Type: marijuana Exam Initial Vital Signs Initial Vital Signs: Vital Signs Temperature 97.6 F 09/22/20 14:55 Pulse Rate 71 09/22/20 14:55 Respiratory Rate 16 09/22/20 14:55 Blood Pressure 128/67 09/22/20 14:55 Pulse Oximetry 98 09/22/20 14:55 GENERAL: Well-appearing, well-nourished and in no acute distress. HEENT: Head atraumatic,EOMI, pupils reactive, face symmetric, moist mucous membranes NECK: Supple no vertebral tenderness no step-off CARDIOVASCULAR: Regular rate and rhythm without murmurs, rubs or gallops. RESPIRATORY: Breath sounds equal bilaterally, no wheezes rales or rhonchi. ABDOMEN: Soft, nontender. Normoactive bowel sounds all 4 quadrants. No guarding or rebound. EXTREMITIES: Normal range of motion, no clubbing or edema. Neurovascularly intact. Pelvis stable no pain in either hip with internal and external rotation Left her wrist mild swelling good strong distal radial pulse able to move all fingers Left buttock pain no sacrum or lumbar pain NEUROLOGICAL: Alert and oriented x4.Normal gait and speech. SKIN: Warm, dry, no laceration, no petechiae, no rashes or lesions. Procedures Orthopedic Splinting/Casting Injury #1: Side: left Upper Extremity Injury Location: wrist Upper Extremity Immobilizer: sugar tong splint Post splinting neuro exam: intact and no change Post splinting vascular exam: intact Placed by: Nursing Course Orders Ordered: ED Orders 09/22/20 15:00 XR wrist LT min 3V Stat Discontinued Medications Hydrocodone Bitart/Acetaminophen (Hydrocodone/Acet 5/325 Prepack) 1 bottle MISC SEEINSTR ONE Stop: 09/22/20 17:42 Vital Signs Vital signs: Vital Signs - 8 hr 09/22/20 14:55 09/22/20 17:00 Temperature 97.6 F Pulse Rate 71 78 Respiratory Rate 16 17 Blood Pressure 128/67 146/80 H Pulse Oximetry 98 99 MDM - Extremity Injury (Upper) Imaging Data Extremity x-ray #1: Radiologist's Impression: PROCEDURE: XR WRIST LT MIN 3V INDICATIONS: fall/wrist pain TECHNIQUE: 4 views of the wrist were acquired. COMPARISON: None. FINDINGS: Bones: There is an impacted, comminuted fracture of the distal radius. No claudia intra-articular involvement can be seen. There is minimal dorsal angulation of the fracture fragments. No additional fractures are detected. No suspicious lytic or blastic lesions are seen. Degenerative changes are seen throughout, which are most prominent involving the 1st carpometacarpal joint. Milder degenerative changes are seen elsewhere. Scaphoid view: No navicular fractures are seen. Soft tissues: No suspicious soft tissue calcifications. IMPRESSION: Distal radius fracture, with impaction and mild dorsal angulation of the fracture fragments. Mild comminution is seen. If it would be helpful for clinical management decision making, please consider a dedicated wrist CT for further evaluation. Dictated by: Julio Meadows M.D. on 09/22/2020 at 14:24 Discharge Plan Departure Patient Disposition: Home Clinical Impression: Fracture of left wrist Qualifiers: Encounter type: initial encounter Fracture type: closed Qualified Code(s): S62.102A - Fracture of unspecified carpal bone, left wrist, initial encounter for closed fracture Instructions: DI for Wrist Fracture Activity Restrictions/Additional Instructions: *You have been diagnosed with left wrist fracture *What to do: You who broke her left wrist. Keep arm and splint at all times put and plastic bag to shower. May take sling off his as needed but wear while active during the day. May ice 20-30 minutes at a time *Continue to take medications as directed [place] 1 tablet every 6 hours if needed for severe pain Motrin 600 mg every 6-8 hours if needed for [id number] pain *Follow up with your primary care provider in 2-3 days *Return to ER if you should have increasing pain numbness tingling swelling or any new, worsening or concerning symptoms CONTROLLED SUBSTANCE DISCHARGE (Narcotoic/benzodiazepine/Flexeril/Phenergan) 1. You have been prescribed narcotic medications, it does have acetaminophen/Tylenol/paracetamol in it, DO NOT TAKE MORE THAN 4,00mg in 24 hours of Tylenol. TRAMADOL DOES NOT CONTAIN TYLENOL 2. Please understand that we cannot provide further refills of narcotics, benzodiazepines or controlled substances through the ED and her pain management will need to be through your provider. 3. While on these medications you cannot drive or operate heavy machinery. 4. You cannot sign legal documents or perform any duties such as this. 5. As long as you're taking opiate pain medications he should also be taking a stool softener such as Colace, Dulcolax, MiraLAX or prune juice, to help avoid constipation. Prescriptions: New hydrocodone-acetaminophen 5-325 mg tablet 1 tab PO Q6H PRN (Reason: pain) Qty: 10 RF: 0 No Action fluoxetine 40 mg capsule 40 mg PO DAILY RF: 0 omeprazole 20 mg capsule,delayed release(DR/EC) 20 mg PO DAILY RF: 0 atorvastatin 40 MG tablet 40 mg PO HS Qty: 0 RF: 0 benzonatate [Tessalon Perles] 100 MG capsule 100 mg PO BID Qty: 30 RF: 0 cyclobenzaprine 5 mg tablet 5 mg PO TID PRN (Reason: muscle spasm) Qty: 10 RF: 0 hydrocodone-acetaminophen 5-325 mg tablet 1 tab PO Q4-6H PRN (Reason: pain) Qty: 10 RF: 0 ketorolac 10 mg tablet 10 mg PO Q6H PRN (Reason: pain) Qty: 14 RF: 0 tamsulosin [Flomax] 0.4 mg capsule 0.4 mg PO DAILY Qty: 10 RF: 0 ondansetron 4 mg tablet,disintegrating 4 mg PO TID-QID PRN (Reason: nausea and vomiting) Qty: 10 RF: 0 Referrals: [facility] [Provider Group] Haley Pereyra MD [Primary Care Provider] -
== END 2020-09-22 17:45 | disposition home or self-care (01) ==
PROVIDERS: Emergency Provider Emergency Medicine; PCP Family Medicine
DX: S62.102A Fracture of unspecified carpal bone, left wrist, initial encounter for closed fracture (principal); W19.XXXA Unspecified fall, initial encounter
CPT/HCPCS: 73110; 99283

== ENCOUNTER 2021-01-13 10:30 | Outpatient (RCR) | payer OTHER, MEDICAID, SELFPAY ==
--- NOTE | 2020-11-14 17:04 | PT.OIE ---
Current Diagnoses Other fractures of lower end of left radius, initial encounter for closed fracture (11/14/20) Visit Care Team Role Provider Type Haley Pereyra MD Primary Care Provider Non-Staff Specialty: Family Practice Address: [address] , [place], [address] Email: Lucy Perez MD Attending Provider Physician Referring Provider Specialty: Orthopedics Address: [address] [place] [address], [place], [address] Email: [email or web address] Physical Therapy Initial Evaluation PT-OP-A Visit Information Start: 11/12/20 17:31 Freq: Status: Active Protocol: Document 11/14/20 14:14 LRN (Rec: 11/14/20 15:08 LRN [id number]) Out-Patient Physical Therapy Visit Information Visit Information Visit Type Initial Evaluation Visit Start Time 14:14 Visit Stop Time 15:07 Total Visit Minutes 53 Visit Number 1 Evaluation Information Evaluation Date 11/14/20 Precautions Precautions Per pt: Osteoporosis, back 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 PT-OP-B Current Condition Start: 11/12/20 17:31 Freq: Status: Active Protocol: Document 11/14/20 14:14 LRN (Rec: 11/14/20 15:08 LRN [id number]) Current Condition History of Current Condition Onset Date 09/22/20 Current Complaints L wrist sore/swelling on lat side, & can't bend wrist and fingers into ext. History of Current Condition Fractured L distal radius after slipping and falling backwards, landing on her buttocks and hands. Wore a splint for 10 days then was casted 10/01/20. Cast was removed 10/30/20 and was given referral for physical therapy. Wearing a soft wrist splint . Pt is having trouble with sweeping and mopping and doing dishes and laundry due to pain. Note: pt referral indicates restriction: Not lifting more than a coffee cup or 2# until 9 weeks postop (pt reports no surgery, just fracture). Prior Treatments and Tests Used Vicodin, but discontinued because she didn't like the way it made her feel. For pain, she has a drink every night and sometimes uses marijuana edibles. Future Testing and Treatments Planned Next follow up with referring physician: 12/11/20, but was not supposed to return until after 6 weeks of therapy. 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 Be able to place light objects on top shelves without L wrist pain. Be able to sweep, mob her floors and do laundry without L wrist pain. Prior Functional Status Baseline Function- ADL's Independent Baseline Function- Mobility Independent Baseline Function- Work/School Lives with mother and does all housework. Sweeps floor, washes dishes, and did laundry without L wrist pain. No L wrist pain with putting pants on and hooking bra from behind. Baseline Function- Recreation/Hobbies Gardening Walking dog on a leash. Current Functional Impairments (Reported) Functional Limitations- ADL's Difficulty using L hand to place dishes on top shelf. Pain with loading fast food cook using L hand. Not able to walk dog while holding leash with L hand due to pain. Not able to mop or sweep floor using both hands due to pain. Functional Limitations- Work/School Unemployed, lives at home with mother. Requires help from mother to do all housework. Functional Limitations- Recreation/ Not able to garden. 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 PT-OP-C Subjective Start: 11/12/20 17:31 Freq: Status: Active Protocol: Document 11/14/20 14:14 LRN (Rec: 11/14/20 15:08 LRN [id number]) Patient Questionnaires Quick Dash- Upper Extremity Quick Dash UE Score 79.54 Quick Dash UE Impairment 80 to 99% Impaired (Score 80- 99) OP-PT Pain Assessment Pain Assessment Grid Paper Pain Assessment Grid Completed Yes Location L Axilla Pain Location Details L armpit Intensity 7 Scale Used Numeric (0 - 10) Description Spasm Description- Other Lessening. Onset with L elbow pain. L Elbow Pain Location Details Medial elbow Intensity 7 Scale Used Numeric (0 - 10) Description Spasm Description- Other Funny bone pain Frequency Intermittent L Wrist Pain Location Details Anterior/Posterior L wrist and MCP jts Intensity 9 Scale Used Numeric (0 - 10) Description Spasm Frequency Intermittent PT-OP-H Neuro Start: 11/12/20 17:31 Freq: Status: Active Protocol: Document 11/14/20 14:14 LRN (Rec: 11/14/20 15:08 LRN [id number]) Sensation Evaluation Gross Sensation Gross Sensation WNL PT-OP-J Posture/Palpation/Skin Start: 11/12/20 17:31 Freq: Status: Active Protocol: Document 11/14/20 14:14 LRN (Rec: 11/14/20 15:08 LRN [id number]) Posture Evaluation Position Sitting Head/C-Spine Posture Forward Head T-Spine Posture Flattened L-Spine Posture Increased Lordosis Knee Posture (L) Genu Valgus,(R) Genu Valgus Comments Posture Comments Sits side shifted to the right . Palpation Assessment Location L hand Palpation Location Hand Palpation Findings Edema Palpation Details Generalized swelling at L hand . L elbow Palpation Location Nerve pain at funny bone radiates from elbow to hand. Palpation Findings Edema,Tenderness L wrist Palpation Location Both sides of L wrist and MCP joints Palpation Findings Edema,Tenderness Palpation Details Pain with movement. PT-OP-K Range of Motion Start: 11/12/20 17:31 Freq: Status: Active Protocol: Document 11/14/20 14:14 LRN (Rec: 11/14/20 15:08 LRN [id number]) Elbow/Forearm Range of Motion Elbow/Forearm Right Active Elbow/Forearm ROM WFL Yes ROM Testing Position Sitting Pronation (degrees) 90 Supination (degrees) 90 Comments Otherwise AROM is WNL Left Active Elbow/Forearm ROM WFL No ROM Testing Position Sitting Pronation (degrees) 60 Supination (degrees) 52 Comments Otherwise AROM is WNL Wrist Goniometric Range of Motion Wrist Right Wrist ROM WFL Yes Flexion Active (degrees) 70 Extension Active (degrees) 60 Ulnar Deviation Active (degrees) 22 Radial Deviation Active (degrees) 35 Left Wrist ROM WFL No Flexion Active (degrees) 34 Ulnar Deviation Active (degrees) 19 Radial Deviation Active (degrees) 2 ROM Limitations Wrist Limitations of Range of Motion Pain Comments L wrist: Ext: Lacks 15 deg's (starts 12 deg's UD) PT-OP-M Strength Start: 11/12/20 17:31 Freq: Status: Active Protocol: Document 11/14/20 14:14 LRN (Rec: 11/14/20 15:08 LRN [id number]) Elbow/Forearm Strength Elbow and Forearm Manual Muscle Testing Right Flexion (C6) 5 Normal Extension (C7) 5 Normal Pronation 5 Normal Supination 5 Normal Left Flexion (C6) 5 Normal Extension (C7) 5 Normal Comments Deferred testing of supination & pronation due to strength restrictions from L distal radius fracture. Wrist Strength Wrist Manual Muscle Testing Right Comments Generally 5/5 Left Comments Deferred due to strength restrictions limited to hold a cup of coffee or 2# wgt. Hand Machining Associate/Pinch Strength Hand Dominance Hand Dominance Right Hand Strength Left Comments Deferred due to strength restrictions of the hand. PT-OP-Q Treatments Start: 11/12/20 17:31 Freq: Status: Active Protocol: Document 11/14/20 14:14 LRN (Rec: 11/14/20 15:08 LRN [id number]) Self-Care/Home Management Treatment Education Other Education Pt educated and discussed results of evaluation. Discussed goals and plan of care, with pt agreeable. PT-OP-T Assessment and Plan Start: 11/12/20 17:31 Freq: Status: Active Protocol: Document 11/14/20 14:14 LRN (Rec: 11/14/20 15:08 LRN [id number]) Physical Therapy Assessment Rehab Potential Rehabilitation Potential Good Evaluation Complexity Number of Personal Factors/Comorbidities 3 or More Number of Body Systems Impaired 4 or More Clinical Presentation at Evaluation Evolving Impairments Impairments Activity Tolerance,Functional Mobility,Pain,ROM,Soft Tissue Mobility,Strength Goals Three Impairment Decreased L wrist strength Impairment Not formally assessed, but pt has difficulty moving her L hand/wrist against gravity. Short Term Goal (STG) To be set when pt is cleared of L wrist strengthening. STG Duration To be set after the pt's next follow up visit in November 2020. Lighting Equipment Operator Goal (LTG) Pt will be able to tolerate light level sweeping and floor cleaning using both hands with tolerable discomfort. 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 STG Duration 12/28/20 Snf Goal (LTG) Be able to place light objects on top shelves without L wrist pain. LTG Duration 01/17/21 One Impairment Lacks appropriate self care HEP Lighting Equipment Operator Goal (LTG) Pt will be independent with a progressive self [facility] program of wrist, elbow & finger ROM and strengthening ex's. LTG Duration 01/17/21 Assessment Summary Assessment Pt presents with a referral of strength restriction lifting no greater than a cup of coffee or 2#. Per discussion, the pt appears to be performing activities that is exerting a force greater than her lifting restriction. She appears to be tolerating activites, but after educating the pt on her lifing restrictions, she appears to have a better understanding of her need to protect her L wrist from excessive forces. She presents with soft tissue and mechanical restrictions of her L wrist. She also has pain in her L shoulder, and elbow probably secondary to her soft tissue restrictions. The pt will benefit from skilled physical therapy to improve her L wrist mobility and strengthening when cleared for strengthening. Her insurance limits may restrict her from regaining her prior level of function prior to discharge; therefore we will plan on placing the pt on a progressive HEP of strengthening once she reaches her insurance limit. Physical Therapy Plan Frequency and Duration Frequency of Treatment 2x/Week Plan of Care Start Date 11/14/20 Plan of Care End Date 01/17/21 Therapeutic Interventions Therapeutic Interventions Home Exercise Program,Joint Mobilizations,Manual Therapy, Neuromuscular Re-education, Patient/Caregiver Education, Self-Care/Home Management,Soft Tissue Mobilization,Taping, Therapeutic Exercises Modalities Cold Pack/Ice Massage,Hot Packs Next Visit Focus/Plan Next Note Type Treatment Note Next Visit Plan AROM and PROM of L wrist as pt tolerates. Assess finger/ thumb mobility and initiate hand ROM ex's. STM of L neck/ shoulder/medial forearm. HEP of ROM ex's. End cold pack to wrist or MH/EStim to neck/L shoulder.
--- NOTE | 2020-11-14 17:04 | PT.OPPOC ---
Physical, Occupational & Speech Therapy At [facility] Current Diagnoses Other fractures of lower end of left radius, initial encounter for closed fracture (11/14/20) Visit Care Team Role Provider Type Haley Pereyra MD Primary Care Provider Non-Staff Specialty: Family Practice Address: [address] , [place], [address] Email: Lucy Perez MD Attending Provider Physician Referring Provider Specialty: Orthopedics Address: [address] [place] [address], [place], [address] Email: [email or web address] Plan Of Care PT-OP-T Assessment and Plan Start: 11/12/20 17:31 Freq: Status: Active Protocol: Document 11/14/20 14:14 LRN (Rec: 11/14/20 15:08 LRN [id number]) Physical Therapy Assessment Rehab Potential Rehabilitation Potential Good Evaluation Complexity Number of Personal Factors/Comorbidities 3 or More Number of Body Systems Impaired 4 or More Clinical Presentation at Evaluation Evolving Impairments Impairments Activity Tolerance,Functional Mobility,Pain,ROM,Soft Tissue Mobility,Strength Goals Three Impairment Decreased L wrist strength Impairment Not formally assessed, but pt has difficulty moving her L hand/wrist against gravity. Short Term Goal (STG) To be set when pt is cleared of L wrist strengthening. STG Duration To be set after the pt's next follow up visit in November 2020. Assisted Goal (LTG) Pt will be able to tolerate light level sweeping and floor cleaning using both hands with tolerable discomfort. 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 STG Duration 12/28/20 Sales Service Executive Goal (LTG) Be able to place light objects on top shelves without L wrist pain. LTG Duration 01/17/21 One Impairment Lacks appropriate self care HEP Sales Service Executive Goal (LTG) Pt will be independent with a progressive self skilled nursing program of wrist, elbow & finger ROM and strengthening ex's. LTG Duration 01/17/21 Assessment Summary Assessment Pt presents with a referral of strength restriction lifting no greater than a cup of coffee or 2#. Per discussion, the pt appears to be performing activities that is exerting a force greater than her lifting restriction. She appears to be tolerating activites, but after educating the pt on her lifing restrictions, she appears to have a better understanding of her need to protect her L wrist from excessive forces. She presents with soft tissue and mechanical restrictions of her L wrist. She also has pain in her L shoulder, and elbow probably secondary to her soft tissue restrictions. The pt will benefit from skilled physical therapy to improve her L wrist mobility and strengthening when cleared for strengthening. Her insurance limits may restrict her from regaining her prior level of function prior to discharge; therefore we will plan on placing the pt on a progressive HEP of strengthening once she reaches her insurance limit. Physical Therapy Plan Frequency and Duration Frequency of Treatment 2x/Week Plan of Care Start Date 11/14/20 Plan of Care End Date 01/17/21 Therapeutic Interventions Therapeutic Interventions Home Exercise Program,Joint Mobilizations,Manual Therapy, Neuromuscular Re-education, Patient/Caregiver Education, Self-Care/Home Management,Soft Tissue Mobilization,Taping, Therapeutic Exercises Modalities Cold Pack/Ice Massage,Hot Packs Next Visit Focus/Plan Next Note Type Treatment Note Next Visit Plan AROM and PROM of L wrist as pt tolerates. Assess finger/ thumb mobility and initiate hand ROM ex's. STM of L neck/ shoulder/medial forearm. HEP of ROM ex's. End cold pack to wrist or MH/EStim to neck/L shoulder. Plan of Care Dates Plan of Care Start Date 11/14/20 Plan of Care End Date 01/17/21 Electronically Signed by: Elvia Lerner, PT 11/14/20 [id number] Please Sign and Return: I have reviewed this Plan of Care and certify that the skilled therapy services above are required to meet the patient?s needs. Physician Signature Date Printed Name and Credentials Clinical Instructor Signature Printed Name and Credentials
--- NOTE | 2020-11-26 12:15 | PT.OTN ---
Current Diagnoses Other fractures of lower end of left radius, initial encounter for closed fracture (11/26/20) Physical Therapy Treatment Note PT-OP-A Visit Information Start: 11/12/20 17:31 Freq: Status: Active Protocol: Document 11/26/20 08:17 LRN (Rec: 11/26/20 09:04 LRN [id number]) Out-Patient Physical Therapy Visit Information Visit Information Visit Type Treatment Note Visit Start Time 08:17 Visit Stop Time 09:05 Total Visit Minutes 50 Visit Number 2 Evaluation Information Evaluation Date 11/14/20 PT-OP-B Current Condition Start: 11/12/20 17:31 Freq: Status: Active Protocol: Document 11/14/20 14:14 LRN (Rec: 11/14/20 15:08 LRN [id number]) Current Condition History of Current Condition Onset Date 09/22/20 Current Complaints L wrist sore/swelling on lat side, & can't bend wrist and fingers into ext. History of Current Condition Fractured L distal radius after slipping and falling backwards, landing on her buttocks and hands. Wore a splint for 10 days then was casted 10/01/20. Cast was removed 10/30/20 and was given referral for physical therapy. Wearing a soft wrist splint . Pt is having trouble with sweeping and mopping and doing dishes and laundry due to pain. Note: pt referral indicates restriction: Not lifting more than a coffee cup or 2# until 9 weeks postop (pt reports no surgery, just fracture). Prior Treatments and Tests Used Vicodin, but discontinued because she didn't like the way it made her feel. For pain, she has a drink every night and sometimes uses marijuana edibles. Future Testing and Treatments Planned Next follow up with referring physician: 12/11/20, but was not supposed to return until after 6 weeks of therapy. 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 Be able to place light objects on top shelves without L wrist pain. Be able to sweep, mob her floors and do laundry without L wrist pain. Prior Functional Status Baseline Function- ADL's Independent Baseline Function- Mobility Independent Baseline Function- Work/School Lives with mother and does all housework. Sweeps floor, washes dishes, and did laundry without L wrist pain. No L wrist pain with putting pants on and hooking bra from behind. Baseline Function- Recreation/Hobbies Gardening Walking dog on a leash. Current Functional Impairments (Reported) Functional Limitations- ADL's Difficulty using L hand to place dishes on top shelf. 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 Not able to walk dog while holding leash with L hand due to pain. Not able to mop or sweep floor using both hands due to pain. Functional Limitations- Work/School Unemployed, lives at home with mother. Requires help from mother to do all housework. Functional Limitations- Recreation/ Not able to garden. 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 PT-OP-C Subjective Start: 11/12/20 17:31 Freq: Status: Active Protocol: Document 11/26/20 08:17 LRN (Rec: 11/26/20 09:04 LRN [id number]) OP-PT Subjective Patient Comments Patient Comments ........ PT-OP-H Neuro Start: 11/12/20 17:31 Freq: Status: Active Protocol: Document 11/14/20 14:14 LRN (Rec: 11/14/20 15:08 LRN [id number]) Sensation Evaluation Gross Sensation Gross Sensation WNL PT-OP-J Posture/Palpation/Skin Start: 11/12/20 17:31 Freq: Status: Active Protocol: Document 11/14/20 14:14 LRN (Rec: 11/14/20 15:08 LRN [id number]) Posture Evaluation Position Sitting Head/C-Spine Posture Forward Head T-Spine Posture Flattened L-Spine Posture Increased Lordosis Knee Posture (L) Genu Valgus,(R) Genu Valgus Comments Posture Comments Sits side shifted to the right . Palpation Assessment Location L hand Palpation Location Hand Palpation Findings Edema Palpation Details Generalized swelling at L hand . L elbow Palpation Location Nerve pain at funny bone radiates from elbow to hand. Palpation Findings Edema,Tenderness L wrist Palpation Location Both sides of L wrist and MCP joints Palpation Findings Edema,Tenderness Palpation Details Pain with movement. PT-OP-K Range of Motion Start: 11/12/20 17:31 Freq: Status: Active Protocol: Document 11/26/20 08:17 LRN (Rec: 11/26/20 09:04 LRN [id number]) Elbow/Forearm Range of Motion Elbow/Forearm Right Active Elbow/Forearm ROM WFL Yes ROM Testing Position Sitting Pronation (degrees) 90 Supination (degrees) 90 Comments Otherwise AROM is WNL Left Active Elbow/Forearm ROM WFL No ROM Testing Position Sitting Pronation (degrees) 60 Supination (degrees) 63 Wrist Goniometric Range of Motion Wrist Right Wrist ROM WFL Yes Flexion Active (degrees) 70 Extension Active (degrees) 60 Ulnar Deviation Active (degrees) 22 Radial Deviation Active (degrees) 35 Left Wrist ROM WFL No Flexion Active (degrees) 35 Extension Active (degrees) 35 Ulnar Deviation Active (degrees) 20 Radial Deviation Active (degrees) 18 PT-OP-M Strength Start: 11/12/20 17:31 Freq: Status: Active Protocol: Document 11/14/20 14:14 LRN (Rec: 11/14/20 15:08 LRN [id number]) Elbow/Forearm Strength Elbow and Forearm Manual Muscle Testing Right Flexion (C6) 5 Normal Extension (C7) 5 Normal Pronation 5 Normal Supination 5 Normal Left Flexion (C6) 5 Normal Extension (C7) 5 Normal Comments Deferred testing of supination & pronation due to strength restrictions from L distal radius fracture. Wrist Strength Wrist Manual Muscle Testing Right Comments Generally 5/5 Left Comments Deferred due to strength restrictions limited to hold a cup of coffee or 2# wgt. Hand Nuclear Logging Engineer/Pinch Strength Hand Dominance Hand Dominance Right Hand Strength Left Comments Deferred due to strength restrictions of the hand. PT-OP-Q Treatments Start: 11/12/20 17:31 Freq: Status: Active Protocol: Document 11/26/20 08:17 LRN (Rec: 11/26/20 09:04 LRN [id number]) Therapeutic Exercises Sitting Exercises L RD Sitting Exercise Name Radial deviation active stretch Side left Comments ROM taken L UD Sitting Exercise Name Ulnar Deviation active stretch Side left Reps/Minutes 10 hold x 6 Comments ROM taken Supination Sitting Exercise Name Supination stretch - manual & self assist Side left Reps/Minutes 3' Comments ROM taken Pronation Sitting Exercise Name Pronation stretch - manual & self assist Side left Reps/Minutes 3' Comments ROM taken Wrist Flex Sitting Exercise Name Forearm pron: AROM wrist flex Side left Reps/Minutes 10 H x 6 Comments ROM taken, Extra time for maximizing ROM and set up, Wrist ext Sitting Exercise Name Forearm sup: AROM wrist ext Side left Reps/Minutes 10 H x 6 Comments ROM taken, Extra time for maximizing ROM and set up Manual Therapy Treatment Soft Tissue Mobilization Posterior L arm Body Location L Posterior Forearm/wrist hand Mobilization Type Strumming Intensity/Depth Superficial Body Position Sitting Anterior L arm Body Location L Anterior Forearm/wrist hand Mobilization Type Strumming Intensity/Depth Superficial Body Position Sitting Manual Techniques MWM wrist ext/flex Type Inferior glide of ulna with wrist AROM ex's Body Location L proximal ulna Body Position Sitting Reps/Duration 10' Comments Relief of Ulnar wrist pain during MWM. Partial relief without mob. Self-Care/Home Management Treatment Education Patient Education Home Exercise Program Activities Self-Care/Home Management Activities I/S pt in how to self MWM of L distal ulna during wrist flex /ext to relieve ulnar side wrist pain. I/S pt in gentle Passive wrist flex/ext/pron/sup f/b active ROM. PT-OP-T Assessment and Plan Start: 11/12/20 17:31 Freq: Status: Active Protocol: Document 11/26/20 08:17 LRN (Rec: 11/26/20 09:04 LRN [id number]) Physical Therapy Assessment Goals Three Impairment Decreased L wrist strength Impairment Not formally assessed, but pt has difficulty moving her L hand/wrist against gravity. Short Term Goal (STG) To be set when pt is cleared of L wrist strengthening. STG Duration To be set after the pt's next follow up visit in November 2020. Retirement Goal (LTG) Pt will be able to tolerate light level sweeping and floor cleaning using both hands with tolerable discomfort. 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 STG Duration 12/28/20 Retirement Goal (LTG) Be able to place light objects on top shelves without L wrist pain. LTG Duration 01/17/21 One Impairment Lacks appropriate self care HEP Retirement Goal (LTG) Pt will be independent with a progressive self group home program of wrist, elbow & finger ROM and strengthening ex's. (11/26/20: I/S given for wrist PROM & AROM ex's & self MWM of infer glide of ulna with ROM) LTG Duration 01/17/21 (11/26/20: Progressed) Progress Towards Goals Progress Comments Progressed HEP. Improved L wrist RD & supination. Assessment Summary Assessment Pt able to tolerate L wrist PROM with slight overpressure. Pt tends to be more aggressive with self PROM and needs cuing to not create pain . Improved active L wrist RD & supination. Physical Therapy Plan Frequency and Duration Frequency of Treatment 2x/Week Plan of Care Start Date 11/14/20 Plan of Care End Date 01/17/21 Next Visit Focus/Plan Next Note Type Treatment Note Next Visit Plan Pt is ~ s/p 8 wks distal radial fracture. AROM and PROM of L wrist as pt tolerates. Assess finger/ thumb mobility and initiate hand ROM ex's. STM of L neck/ shoulder/medial forearm. HEP of ROM ex's. End cold pack to wrist or MH/EStim to neck/L shoulder.
--- NOTE | 2020-11-29 12:14 | PT.OTN ---
Current Diagnoses Other fractures of lower end of left radius, initial encounter for closed fracture (11/29/20) Physical Therapy Treatment Note PT-OP-A Visit Information Start: 11/12/20 17:31 Freq: Status: Active Protocol: Document 11/29/20 11:19 LRN (Rec: 11/29/20 12:13 LRN [id number]) Out-Patient Physical Therapy Visit Information Visit Information Visit Type Treatment Note Visit Start Time 11:19 Visit Stop Time 12:03 Total Visit Minutes 44 Visit Number 3 Evaluation Information Evaluation Date 11/14/20 Precautions Precautions Per pt: Osteoporosis, back 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 PT-OP-B Current Condition Start: 11/12/20 17:31 Freq: Status: Active Protocol: Document 11/14/20 14:14 LRN (Rec: 11/14/20 15:08 LRN [id number]) Current Condition History of Current Condition Onset Date 09/22/20 Current Complaints L wrist sore/swelling on lat side, & can't bend wrist and fingers into ext. History of Current Condition Fractured L distal radius after slipping and falling backwards, landing on her buttocks and hands. Wore a splint for 10 days then was casted 10/01/20. Cast was removed 10/30/20 and was given referral for physical therapy. Wearing a soft wrist splint . Pt is having trouble with sweeping and mopping and doing dishes and laundry due to pain. Note: pt referral indicates restriction: Not lifting more than a coffee cup or 2# until 9 weeks postop (pt reports no surgery, just fracture). Prior Treatments and Tests Used Vicodin, but discontinued because she didn't like the way it made her feel. For pain, she has a drink every night and sometimes uses marijuana edibles. Future Testing and Treatments Planned Next follow up with referring physician: 12/11/20, but was not supposed to return until after 6 weeks of therapy. 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 Be able to place light objects on top shelves without L wrist pain. Be able to sweep, mob her floors and do laundry without L wrist pain. Prior Functional Status Baseline Function- ADL's Independent Baseline Function- Mobility Independent Baseline Function- Work/School Lives with mother and does all housework. Sweeps floor, washes dishes, and did laundry without L wrist pain. No L wrist pain with putting pants on and hooking bra from behind. Baseline Function- Recreation/Hobbies Gardening Walking dog on a leash. Current Functional Impairments (Reported) Functional Limitations- ADL's Difficulty using L hand to place dishes on top shelf. Pain with loading desk manager using L hand. Not able to walk dog while holding leash with L hand due to pain. Not able to mop or sweep floor using both hands due to pain. Functional Limitations- Work/School Unemployed, lives at home with mother. Requires help from mother to do all housework. Functional Limitations- Recreation/ Not able to garden. 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 PT-OP-C Subjective Start: 11/12/20 17:31 Freq: Status: Active Protocol: Document 11/29/20 11:19 LRN (Rec: 11/29/20 12:13 LRN [id number]) OP-PT Subjective Patient Comments Patient Comments Doesn't hurt as much to move the forearm. Can now feel when the arm is tired. So much better since the last session. PT-OP-H Neuro Start: 11/12/20 17:31 Freq: Status: Active Protocol: Document 11/14/20 14:14 LRN (Rec: 11/14/20 15:08 LRN [id number]) Sensation Evaluation Gross Sensation Gross Sensation WNL PT-OP-J Posture/Palpation/Skin Start: 11/12/20 17:31 Freq: Status: Active Protocol: Document 11/14/20 14:14 LRN (Rec: 11/14/20 15:08 LRN [id number]) Posture Evaluation Position Sitting Head/C-Spine Posture Forward Head T-Spine Posture Flattened L-Spine Posture Increased Lordosis Knee Posture (L) Genu Valgus,(R) Genu Valgus Comments Posture Comments Sits side shifted to the right . Palpation Assessment Location L hand Palpation Location Hand Palpation Findings Edema Palpation Details Generalized swelling at L hand . L elbow Palpation Location Nerve pain at funny bone radiates from elbow to hand. Palpation Findings Edema,Tenderness L wrist Palpation Location Both sides of L wrist and MCP joints Palpation Findings Edema,Tenderness Palpation Details Pain with movement. PT-OP-K Range of Motion Start: 11/12/20 17:31 Freq: Status: Active Protocol: Document 11/29/20 11:19 LRN (Rec: 11/29/20 12:13 LRN [id number]) Elbow/Forearm Range of Motion Elbow/Forearm Right Active Elbow/Forearm ROM WFL Yes ROM Testing Position Sitting Pronation (degrees) 90 Supination (degrees) 90 Comments Otherwise AROM is WNL Left Active Elbow/Forearm ROM WFL No ROM Testing Position Sitting Pronation (degrees) 80 Supination (degrees) 60 Wrist Goniometric Range of Motion Wrist Right Wrist ROM WFL Yes Flexion Active (degrees) 70 Extension Active (degrees) 60 Ulnar Deviation Active (degrees) 22 Radial Deviation Active (degrees) 35 Left Wrist ROM WFL No Flexion Active (degrees) 45 Flexion Passive (degrees) 50 Extension Active (degrees) 37 Ulnar Deviation Active (degrees) 13 Radial Deviation Active (degrees) 23 ROM Limitations Comments L Wrist flex/ext taken with forearm in pronation (in supination wrist ext is 40 deg 's. PT-OP-M Strength Start: 11/12/20 17:31 Freq: Status: Active Protocol: Document 11/14/20 14:14 LRN (Rec: 11/14/20 15:08 LRN [id number]) Elbow/Forearm Strength Elbow and Forearm Manual Muscle Testing Right Flexion (C6) 5 Normal Extension (C7) 5 Normal Pronation 5 Normal Supination 5 Normal Left Flexion (C6) 5 Normal Extension (C7) 5 Normal Comments Deferred testing of supination & pronation due to strength restrictions from L distal radius fracture. Wrist Strength Wrist Manual Muscle Testing Right Comments Generally 5/5 Left Comments Deferred due to strength restrictions limited to hold a cup of coffee or 2# wgt. Hand Computer Programming Supervisor/Pinch Strength Hand Dominance Hand Dominance Right Hand Strength Left Comments Deferred due to strength restrictions of the hand. PT-OP-Q Treatments Start: 11/12/20 17:31 Freq: Status: Active Protocol: Document 11/29/20 11:19 LRN (Rec: 11/29/20 12:13 LRN [id number]) Therapeutic Exercises Sitting Exercises L RD Sitting Exercise Name Radial deviation PROM/AROM stretch Side left Comments ROM taken L UD Sitting Exercise Name Ulnar Deviation active stretch Side left Reps/Minutes 10 hold x 6 Comments ROM taken Supination Sitting Exercise Name Supination stretch - manual & self assist Side left Reps/Minutes 3' Comments ROM taken Pronation Sitting Exercise Name Pronation stretch - manual & self assist Side left Reps/Minutes 3' Comments ROM taken Wrist Flex Sitting Exercise Name Forearm pron: PROM/AROM wrist flex Side left Reps/Minutes 5' Comments ROM taken, Extra time for maximizing ROM and set up, Wrist ext Sitting Exercise Name Forearm sup: PROMAROM wrist ext Side left Reps/Minutes 5' Comments ROM taken, Extra time for maximizing ROM and set up Manual Therapy Treatment Soft Tissue Mobilization Posterior L arm Body Location L Posterior Forearm/wrist hand Mobilization Type Strumming Intensity/Depth Superficial Body Position Sitting Anterior L arm Body Location L Anterior Forearm/wrist (UD)/ hand Mobilization Type Strumming Intensity/Depth Superficial Body Position Sitting Manual Techniques MWM wrist ext/flex Type Inferior glide of ulna with wrist AROM ex's Body Location L proximal ulna Body Position Sitting Reps/Duration 10' Comments Relief of Ulnar wrist pain during MWM except with UD when wrist is at neutral position. PT-OP-T Assessment and Plan Start: 11/12/20 17:31 Freq: Status: Active Protocol: Document 11/29/20 11:19 LRN (Rec: 11/29/20 12:13 LRN [id number]) Physical Therapy Assessment Goals Three Impairment Decreased L wrist strength Impairment Not formally assessed, but pt has difficulty moving her L hand/wrist against gravity. Short Term Goal (STG) To be set when pt is cleared of L wrist strengthening. STG Duration To be set after the pt's next follow up visit in November 2020. Usp Goal (LTG) Pt will be able to tolerate light level sweeping and floor cleaning using both hands with tolerable discomfort. 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 (11/29/20: L wrist AROM improving). STG Duration 12/28/20 (11/29/20: Improving ) Usp Goal (LTG) Be able to place light objects on top shelves without L wrist pain. LTG Duration 01/17/21 One Impairment Lacks appropriate self care HEP Usp Goal (LTG) Pt will be independent with a progressive self assisted program of wrist, elbow & finger ROM and strengthening ex's. (11/26/20: I/S given for wrist PROM & AROM ex's & self MWM of infer glide of ulna with ROM) LTG Duration 01/17/21 (11/26/20: Progressed) Assessment Summary Assessment Wrist/forearm AROM mobility slowly improving as expected. Her limiting pain is on the opposite side (side she fell on) of her radial fracture, currently appears soft tissue related. Relief of pain with STM except she appears to have a pain range with UD at neutral wrist position. Physical Therapy Plan Frequency and Duration Frequency of Treatment 2x/Week Plan of Care Start Date 11/14/20 Plan of Care End Date 01/17/21 Next Visit Focus/Plan Next Note Type Treatment Note Next Visit Plan Pt is ~ s/p 8 wks distal radial fracture. Next MD appt is 12/11/20. Assess finger/ thumb mobility and initiate hand ROM ex's. Cont AROM and PROM of L wrist as pt tolerates. STM of L neck/ shoulder/medial forearm. HEP of ROM ex's. End cold pack to wrist or MH/EStim to neck/L shoulder.
--- NOTE | 2020-12-09 16:23 | PT.OTN ---
Current Diagnoses Other fractures of lower end of left radius, initial encounter for closed fracture (12/09/20) Physical Therapy Treatment Note PT-OP-A Visit Information Start: 11/12/20 17:31 Freq: Status: Active Protocol: Document 12/09/20 12:40 LRN (Rec: 12/09/20 13:32 LRN [id number]) Out-Patient Physical Therapy Visit Information Visit Information Visit Type Treatment Note Visit Start Time 12:40 Visit Stop Time 13:37 Total Visit Minutes 57 Visit Number 4 Evaluation Information Evaluation Date 11/14/20 Precautions Precautions Per pt: Osteoporosis, back 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 PT-OP-B Current Condition Start: 11/12/20 17:31 Freq: Status: Active Protocol: Document 11/14/20 14:14 LRN (Rec: 11/14/20 15:08 LRN [id number]) Current Condition History of Current Condition Onset Date 09/22/20 Current Complaints L wrist sore/swelling on lat side, & can't bend wrist and fingers into ext. History of Current Condition Fractured L distal radius after slipping and falling backwards, landing on her buttocks and hands. Wore a splint for 10 days then was casted 10/01/20. Cast was removed 10/30/20 and was given referral for physical therapy. Wearing a soft wrist splint . Pt is having trouble with sweeping and mopping and doing dishes and laundry due to pain. Note: pt referral indicates restriction: Not lifting more than a coffee cup or 2# until 9 weeks postop (pt reports no surgery, just fracture). Prior Treatments and Tests Used Vicodin, but discontinued because she didn't like the way it made her feel. For pain, she has a drink every night and sometimes uses marijuana edibles. Future Testing and Treatments Planned Next follow up with referring physician: 12/11/20, but was not supposed to return until after 6 weeks of therapy. 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 Be able to place light objects on top shelves without L wrist pain. Be able to sweep, mob her floors and do laundry without L wrist pain. Prior Functional Status Baseline Function- ADL's Independent Baseline Function- Mobility Independent Baseline Function- Work/School Lives with mother and does all housework. Sweeps floor, washes dishes, and did laundry without L wrist pain. No L wrist pain with putting pants on and hooking bra from behind. Baseline Function- Recreation/Hobbies Gardening Walking dog on a leash. Current Functional Impairments (Reported) Functional Limitations- ADL's Difficulty using L hand to place dishes on top shelf. Pain with loading smoke inspector using L hand. Not able to walk dog while holding leash with L hand due to pain. Not able to mop or sweep floor using both hands due to pain. Functional Limitations- Work/School Unemployed, lives at home with mother. Requires help from mother to do all housework. Functional Limitations- Recreation/ Not able to garden. 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 PT-OP-C Subjective Start: 11/12/20 17:31 Freq: Status: Active Protocol: Document 12/09/20 12:40 LRN (Rec: 12/09/20 13:32 LRN [id number]) OP-PT Subjective Patient Comments Patient Comments Stiff and sore. After last session her arm felt so good . PT-OP-H Neuro Start: 11/12/20 17:31 Freq: Status: Active Protocol: Document 11/14/20 14:14 LRN (Rec: 11/14/20 15:08 LRN [id number]) Sensation Evaluation Gross Sensation Gross Sensation WNL PT-OP-J Posture/Palpation/Skin Start: 11/12/20 17:31 Freq: Status: Active Protocol: Document 11/14/20 14:14 LRN (Rec: 11/14/20 15:08 LRN [id number]) Posture Evaluation Position Sitting Head/C-Spine Posture Forward Head T-Spine Posture Flattened L-Spine Posture Increased Lordosis Knee Posture (L) Genu Valgus,(R) Genu Valgus Comments Posture Comments Sits side shifted to the right . Palpation Assessment Location L hand Palpation Location Hand Palpation Findings Edema Palpation Details Generalized swelling at L hand . L elbow Palpation Location Nerve pain at funny bone radiates from elbow to hand. Palpation Findings Edema,Tenderness L wrist Palpation Location Both sides of L wrist and MCP joints Palpation Findings Edema,Tenderness Palpation Details Pain with movement. PT-OP-K Range of Motion Start: 11/12/20 17:31 Freq: Status: Active Protocol: Document 12/09/20 12:40 LRN (Rec: 12/09/20 13:32 LRN [id number]) Elbow/Forearm Range of Motion Elbow/Forearm Right Active Elbow/Forearm ROM WFL Yes ROM Testing Position Sitting Pronation (degrees) 90 Supination (degrees) 90 Comments Otherwise AROM is WNL Left Active Elbow/Forearm ROM WFL No ROM Testing Position Sitting Pronation (degrees) 60 Supination (degrees) 40 Wrist Goniometric Range of Motion Wrist Right Wrist ROM WFL Yes Flexion Active (degrees) 70 Extension Active (degrees) 60 Ulnar Deviation Active (degrees) 22 Radial Deviation Active (degrees) 35 Left Wrist ROM WFL No Flexion Active (degrees) 40 Extension Active (degrees) 44 Ulnar Deviation Active (degrees) 20 Radial Deviation Active (degrees) 16 ROM Limitations Wrist Limitations of Range of Motion Soft Tissue Tightness,Muscle Weakness,Pain Comments L wrist ROM before therapy: flexion - 18 deg's, ext - 46 deg's, UD - 20 deg's, RD - 16 deg's. After stretching (in deg's): Flex - 28 active, 42 passive ( forearm in pron); Ext is 44 active 64 passive (forearm in supination). UD active 20, passive 30; RD active 16, passive 30. PT-OP-M Strength Start: 11/12/20 17:31 Freq: Status: Active Protocol: Document 11/14/20 14:14 LRN (Rec: 11/14/20 15:08 LRN [id number]) Elbow/Forearm Strength Elbow and Forearm Manual Muscle Testing Right Flexion (C6) 5 Normal Extension (C7) 5 Normal Pronation 5 Normal Supination 5 Normal Left Flexion (C6) 5 Normal Extension (C7) 5 Normal Comments Deferred testing of supination & pronation due to strength restrictions from L distal radius fracture. Wrist Strength Wrist Manual Muscle Testing Right Comments Generally 5/5 Left Comments Deferred due to strength restrictions limited to hold a cup of coffee or 2# wgt. Hand [employer] Recruiter/Pinch Strength Hand Dominance Hand Dominance Right Hand Strength Left Comments Deferred due to strength restrictions of the hand. PT-OP-Q Treatments Start: 11/12/20 17:31 Freq: Status: Active Protocol: Document 12/09/20 12:40 LRN (Rec: 12/09/20 13:32 LRN [id number]) Therapeutic Exercises Sitting Exercises Gripping ex Sitting Exercise Name Gripping Side left Reps/Minutes 2' L RD Sitting Exercise Name Radial deviation PROM/AROM stretch Side left Comments ROM taken L UD Sitting Exercise Name Ulnar Deviation passive & active stretch Side left Reps/Minutes 10 hold x 6 Comments ROM taken Supination Sitting Exercise Name Supination stretch - manual & self assist Side left Reps/Minutes 3' Comments ROM taken Pronation Sitting Exercise Name Pronation stretch - manual & self assist Side left Reps/Minutes 3' Comments ROM taken Wrist Flex Sitting Exercise Name Forearm pron: PROM/AROM wrist flex Side left Reps/Minutes 5' Comments ROM taken, Extra time for maximizing ROM and set up, Wrist ext Sitting Exercise Name Forearm sup: PROMAROM wrist ext Side left Reps/Minutes 5' Comments ROM taken, Extra time for maximizing ROM and set up Manual Therapy Treatment Soft Tissue Mobilization Posterior L arm Body Location L Posterior Forearm/wrist hand Mobilization Type Strumming Intensity/Depth Moderate Body Position Sitting Anterior L arm Body Location L Anterior Forearm/wrist (UD)/ hand Mobilization Type Strumming Intensity/Depth Moderate Body Position Sitting Manual Techniques MWM wrist ext/flex Type Inferior glide of ulna with wrist AROM ex's Body Location L proximal ulna Body Position Sitting Reps/Duration 5' Comments Relief of Ulnar wrist pain during MWM except with UD when wrist is at neutral position. PT-OP-R Modalities Start: 11/12/20 17:31 Freq: Status: Active Protocol: Document 12/09/20 12:40 LRN (Rec: 12/09/20 13:32 LRN [id number]) Hot Pack/Cold Pack Treatment Cold Pack Location L wrist/forearm Patient Position Sitting Treatment Duration (minutes) 10 Patient Tolerance Good PT-OP-T Assessment and Plan Start: 11/12/20 17:31 Freq: Status: Active Protocol: Document 12/09/20 12:40 LRN (Rec: 12/09/20 13:32 LRN [id number]) Physical Therapy Assessment Goals Three Impairment Decreased L wrist strength Impairment Not formally assessed, but pt has difficulty moving her L hand/wrist against gravity. Short Term Goal (STG) To be set when pt is cleared of L wrist strengthening. STG Duration To be set after the pt's next follow up visit in November 2020. Consultants Intern Goal (LTG) Pt will be able to tolerate light level sweeping and floor cleaning using both hands with tolerable discomfort. LTG Duration 01/17/21 Two Impairment Decreased L wrist AROM Short Term Goal (STG) Be able to load her smoke inspector of light objects (2# or less) without L wrist pain. (11/29/20: L wrist AROM improving). STG Duration 12/28/20 (11/29/20: Improving ) [facility] Goal (LTG) Be able to place light objects on top shelves without L wrist pain. LTG Duration 01/17/21 One Impairment Lacks appropriate self care HEP [facility] Goal (LTG) Pt will be independent with a progressive self long-term program of wrist, elbow & finger ROM and strengthening ex's. (11/26/20: I/S given for wrist PROM & AROM ex's & self MWM of infer glide of ulna with ROM) LTG Duration 01/17/21 (11/26/20: Progressed) Assessment Summary Assessment Pt is 11 weeks post fracture. L wrist AROM improved after therapy. Pt stiff to start, needs to increase ex at home. Pt restriction of weight no more than a coffee cup also limits her strengthening and therefore her AROM. Physical Therapy Plan Frequency and Duration Frequency of Treatment 2x/Week Plan of Care Start Date 11/14/20 Plan of Care End Date 01/17/21 Next Visit Focus/Plan Next Note Type Treatment Note Next Visit Plan Assess finger/thumb mobility and initiate hand ROM ex's. Assess outcome of 12/11/20 MD visit and set STG #3 as appropriate. Pt 11 wks distal radial fracture. Cont AROM and PROM of L wrist as pt tolerates. STM of L neck/ shoulder/medial forearm. HEP of ROM ex's. End cold pack to wrist or MH/EStim to neck/L shoulder.
--- NOTE | 2020-12-12 11:33 | PT.OTN ---
Current Diagnoses Other fractures of lower end of left radius, initial encounter for closed fracture (12/12/20) Physical Therapy Treatment Note PT-OP-A Visit Information Start: 11/12/20 17:31 Freq: Status: Active Protocol: Document 12/12/20 10:34 LRN (Rec: 12/12/20 11:32 LRN [id number]) Out-Patient Physical Therapy Visit Information Visit Information Visit Type Treatment Note Visit Note Msg left at Dr. Perez office requesting information re: clearing of restrictions and progressing of pt's rehabilitation. Visit Start Time 10:34 Visit Stop Time 11:15 Total Visit Minutes 41 Visit Number 5 Evaluation Information Evaluation Date 11/14/20 Precautions Precautions Per pt: Osteoporosis, back 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 PT-OP-B Current Condition Start: 11/12/20 17:31 Freq: Status: Active Protocol: Document 11/14/20 14:14 LRN (Rec: 11/14/20 15:08 LRN [id number]) Current Condition History of Current Condition Onset Date 09/22/20 Current Complaints L wrist sore/swelling on lat side, & can't bend wrist and fingers into ext. History of Current Condition Fractured L distal radius after slipping and falling backwards, landing on her buttocks and hands. Wore a splint for 10 days then was casted 10/01/20. Cast was removed 10/30/20 and was given referral for physical therapy. Wearing a soft wrist splint . Pt is having trouble with sweeping and mopping and doing dishes and laundry due to pain. Note: pt referral indicates restriction: Not lifting more than a coffee cup or 2# until 9 weeks postop (pt reports no surgery, just fracture). Prior Treatments and Tests Used Vicodin, but discontinued because she didn't like the way it made her feel. For pain, she has a drink every night and sometimes uses marijuana edibles. Future Testing and Treatments Planned Next follow up with referring physician: 12/11/20, but was not supposed to return until after 6 weeks of therapy. 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 Be able to place light objects on top shelves without L wrist pain. Be able to sweep, mob her floors and do laundry without L wrist pain. Prior Functional Status Baseline Function- ADL's Independent Baseline Function- Mobility Independent Baseline Function- Work/School Lives with mother and does all housework. Sweeps floor, washes dishes, and did laundry without L wrist pain. No L wrist pain with putting pants on and hooking bra from behind. Baseline Function- Recreation/Hobbies Gardening Walking dog on a leash. Current Functional Impairments (Reported) Functional Limitations- ADL's Difficulty using L hand to place dishes on top shelf. 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 Not able to walk dog while holding leash with L hand due to pain. Not able to mop or sweep floor using both hands due to pain. Functional Limitations- Work/School Unemployed, lives at home with mother. Requires help from mother to do all housework. Functional Limitations- Recreation/ Not able to garden. 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 PT-OP-C Subjective Start: 11/12/20 17:31 Freq: Status: Active Protocol: Document 12/12/20 10:34 LRN (Rec: 12/12/20 11:32 LRN [id number]) OP-PT Subjective Patient Comments Patient Comments States she doesn't have to wear her L wrist at all and can wear it to sleep if concerned of positioning. PT-OP-H Neuro Start: 11/12/20 17:31 Freq: Status: Active Protocol: Document 11/14/20 14:14 LRN (Rec: 11/14/20 15:08 LRN [id number]) Sensation Evaluation Gross Sensation Gross Sensation WNL PT-OP-J Posture/Palpation/Skin Start: 11/12/20 17:31 Freq: Status: Active Protocol: Document 11/14/20 14:14 LRN (Rec: 11/14/20 15:08 LRN [id number]) Posture Evaluation Position Sitting Head/C-Spine Posture Forward Head T-Spine Posture Flattened L-Spine Posture Increased Lordosis Knee Posture (L) Genu Valgus,(R) Genu Valgus Comments Posture Comments Sits side shifted to the right . Palpation Assessment Location L hand Palpation Location Hand Palpation Findings Edema Palpation Details Generalized swelling at L hand . L elbow Palpation Location Nerve pain at funny bone radiates from elbow to hand. Palpation Findings Edema,Tenderness L wrist Palpation Location Both sides of L wrist and MCP joints Palpation Findings Edema,Tenderness Palpation Details Pain with movement. PT-OP-K Range of Motion Start: 11/12/20 17:31 Freq: Status: Active Protocol: Document 12/09/20 12:40 LRN (Rec: 12/09/20 13:32 LRN [id number]) Elbow/Forearm Range of Motion Elbow/Forearm Right Active Elbow/Forearm ROM WFL Yes ROM Testing Position Sitting Pronation (degrees) 90 Supination (degrees) 90 Comments Otherwise AROM is WNL Left Active Elbow/Forearm ROM WFL No ROM Testing Position Sitting Pronation (degrees) 60 Supination (degrees) 40 Wrist Goniometric Range of Motion Wrist Right Wrist ROM WFL Yes Flexion Active (degrees) 70 Extension Active (degrees) 60 Ulnar Deviation Active (degrees) 22 Radial Deviation Active (degrees) 35 Left Wrist ROM WFL No Flexion Active (degrees) 40 Extension Active (degrees) 44 Ulnar Deviation Active (degrees) 20 Radial Deviation Active (degrees) 16 ROM Limitations Wrist Limitations of Range of Motion Soft Tissue Tightness,Muscle Weakness,Pain Comments L wrist ROM before therapy: flexion - 18 deg's, ext - 46 deg's, UD - 20 deg's, RD - 16 deg's. After stretching (in deg's): Flex - 28 active, 42 passive ( forearm in pron); Ext is 44 active 64 passive (forearm in supination). UD active 20, passive 30; RD active 16, passive 30. PT-OP-M Strength Start: 11/12/20 17:31 Freq: Status: Active Protocol: Document 11/14/20 14:14 LRN (Rec: 11/14/20 15:08 LRN [id number]) Elbow/Forearm Strength Elbow and Forearm Manual Muscle Testing Right Flexion (C6) 5 Normal Extension (C7) 5 Normal Pronation 5 Normal Supination 5 Normal Left Flexion (C6) 5 Normal Extension (C7) 5 Normal Comments Deferred testing of supination & pronation due to strength restrictions from L distal radius fracture. Wrist Strength Wrist Manual Muscle Testing Right Comments Generally 5/5 Left Comments Deferred due to strength restrictions limited to hold a cup of coffee or 2# wgt. 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 PT-OP-Q Treatments Start: 11/12/20 17:31 Freq: Status: Active Protocol: Document 12/12/20 10:34 LRN (Rec: 12/12/20 11:32 LRN [id number]) Therapeutic Exercises Sitting Exercises Elbow flex/ext Sitting Exercise Name Active flex/ext Side left Reps/Minutes 3' Supination Sitting Exercise Name Supination stretch - manual & self assist Side left Reps/Minutes 3' Comments ROM taken Pronation Sitting Exercise Name Pronation stretch - manual & self assist Side left Reps/Minutes 3' Comments ROM taken Wrist Flex Sitting Exercise Name Forearm pron: PROM/AROM wrist flex Side left Reps/Minutes 5' Comments ROM taken, Extra time for maximizing ROM and set up, Wrist ext Sitting Exercise Name Forearm sup: PROMAROM wrist ext Side left Reps/Minutes 5' Comments ROM taken, Extra time for maximizing ROM and set up Manual Therapy Treatment Soft Tissue Mobilization Posterior L arm Body Location L Posterior Forearm/wrist hand Mobilization Type Strumming Intensity/Depth Moderate Body Position Sitting Anterior L arm Body Location L Anterior Forearm/wrist (UD)/ hand Mobilization Type Strumming Intensity/Depth Moderate Body Position Sitting Taping K-tape @ Ulna Body Location L Ulna Treatment Focus Mechanical correction Type of Tape Kinesio Tape Skin Inspection Good Comments Mechanical correction for an inferior glided and dorsal positioned of L ulna. Education given as to safe and proper removal of K-tape, including max wear time. Pt to remove day prior to next treatment. Manual Techniques MWM wrist UD Type Volar and superior glide of Ulna with UD Body Location L proximal Ulna Body Position Sitting Reps/Duration 5' Comments Relief of Ulnar wrist pain during MWM with wrist UD. MWM wrist ext/flex Type Volar & superior glide of ulna with wrist ext Body Location L proximal ulna Body Position Sitting Reps/Duration 5' Comments Relief of Ulnar wrist pain during MWM with wrist ext PT-OP-R Modalities Start: 11/12/20 17:31 Freq: Status: Active Protocol: Document 12/09/20 12:40 LRN (Rec: 12/09/20 13:32 LRN [id number]) Hot Pack/Cold Pack Treatment Cold Pack Location L wrist/forearm Patient Position Sitting Treatment Duration (minutes) 10 Patient Tolerance Good PT-OP-T Assessment and Plan Start: 11/12/20 17:31 Freq: Status: Active Protocol: Document 12/12/20 10:34 LRN (Rec: 12/12/20 11:32 LRN [id number]) Physical Therapy Assessment Goals Three Impairment Decreased L wrist strength Impairment Not formally assessed, but pt has difficulty moving her L hand/wrist against gravity. Short Term Goal (STG) To be set when pt is cleared of L wrist strengthening. STG Duration To be set after the pt's next follow up visit in November 2020. Assisted Goal (LTG) Pt will be able to tolerate light level sweeping and floor cleaning using both hands with tolerable discomfort. 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 (11/29/20: L wrist AROM improving). STG Duration 12/28/20 (11/29/20: Improving ) Assisted Goal (LTG) Be able to place light objects on top shelves without L wrist pain. LTG Duration 01/17/21 One Impairment Lacks appropriate self care HEP Filer Finish Goal (LTG) Pt will be independent with a progressive self correction program of wrist, elbow & finger ROM and strengthening ex's. (11/26/20: I/S given for wrist PROM & AROM ex's & self MWM of infer glide of ulna with ROM) LTG Duration 01/17/21 (11/26/20: Progressed) Assessment Summary Assessment Pt is ~11.5 weeks post L radial wrist fracture. Pt does not come today with referral to lift therapy restrictions; therefore limited strengthening until restriction cleared. . Contact of referring physician office was unsuccessful, but message left. Her L MCP flex mobility is mildly restricted from what pt reports is chronic arthritis. Her DIP jt mobility is normal . L Digits 2-5: MCP, PIP, DIP jt mobility is WNL. Pt showed + response to K-tape and has good understanding of precautios of use. Physical Therapy Plan Frequency and Duration Frequency of Treatment 2x/Week Plan of Care Start Date 11/14/20 Plan of Care End Date 01/17/21 Next Visit Focus/Plan Next Note Type Treatment Note Next Visit Plan Pt insurance limited to 4 more visits. Set STG #3 as appropriate once referring physician lifts resistance restriction. Pt 11.5 wks distal L radial fracture. Cont AROM and PROM of L wrist as pt tolerates. STM of L neck/shoulder/medial forearm. HEP of ROM ex's. End cold pack to wrist or MH/EStim to neck/L shoulder.
--- NOTE | 2020-12-16 11:56 | PT.OTN ---
Current Diagnoses Other fractures of lower end of left radius, initial encounter for closed fracture (12/16/20) Physical Therapy Treatment Note PT-OP-A Visit Information Start: 11/12/20 17:31 Freq: Status: Active Protocol: Document 12/16/20 10:42 LRN (Rec: 12/16/20 11:52 LRN [id number]) Out-Patient Physical Therapy Visit Information Visit Information Visit Type Treatment Note Visit Note New referral received on 12/13 fir treatment: eval & treat, HEP, ROM, strengthening for closed fraacture of distal end of L radius. 1x/wk for 6 weeks. 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 PT-OP-B Current Condition Start: 11/12/20 17:31 Freq: Status: Active Protocol: Document 11/14/20 14:14 LRN (Rec: 11/14/20 15:08 LRN [id number]) Current Condition History of Current Condition Onset Date 09/22/20 Current Complaints L wrist sore/swelling on lat side, & can't bend wrist and fingers into ext. History of Current Condition Fractured L distal radius after slipping and falling backwards, landing on her buttocks and hands. Wore a splint for 10 days then was casted 10/01/20. Cast was removed 10/30/20 and was given referral for physical therapy. Wearing a soft wrist splint . Pt is having trouble with sweeping and mopping and doing dishes and laundry due to pain. Note: pt referral indicates restriction: Not lifting more than a coffee cup or 2# until 9 weeks postop (pt reports no surgery, just fracture). Prior Treatments and Tests Used Vicodin, but discontinued because she didn't like the way it made her feel. For pain, she has a drink every night and sometimes uses marijuana edibles. Future Testing and Treatments Planned Next follow up with referring physician: 12/11/20, but was not supposed to return until after 6 weeks of therapy. 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 Be able to place light objects on top shelves without L wrist pain. Be able to sweep, mob her floors and do laundry without L wrist pain. Prior Functional Status Baseline Function- ADL's Independent Baseline Function- Mobility Independent Baseline Function- Work/School Lives with mother and does all housework. Sweeps floor, washes dishes, and did laundry without L wrist pain. No L wrist pain with putting pants on and hooking bra from behind. Baseline Function- Recreation/Hobbies Gardening Walking dog on a leash. Current Functional Impairments (Reported) Functional Limitations- ADL's Difficulty using L hand to place dishes on top shelf. 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 Not able to walk dog while holding leash with L hand due to pain. Not able to mop or sweep floor using both hands due to pain. Functional Limitations- Work/School Unemployed, lives at home with mother. Requires help from mother to do all housework. Functional Limitations- Recreation/ Not able to garden. 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 PT-OP-C Subjective Start: 11/12/20 17:31 Freq: Status: Active Protocol: Document 12/16/20 10:42 LRN (Rec: 12/16/20 11:52 LRN [id number]) OP-PT Subjective Patient Comments Patient Comments States she called the physician office and they sent something electronically regarding new referral. States the lateral L forearm is painfulthe distal ulna is not sore, but the ulna in the forearm is sore. Can pull paint leg on with L hand without pain and reach bra with left hand with difficulty . PT-OP-H Neuro Start: 11/12/20 17:31 Freq: Status: Active Protocol: Document 11/14/20 14:14 LRN (Rec: 11/14/20 15:08 LRN [id number]) Sensation Evaluation Gross Sensation Gross Sensation WNL PT-OP-J Posture/Palpation/Skin Start: 11/12/20 17:31 Freq: Status: Active Protocol: Document 11/14/20 14:14 LRN (Rec: 11/14/20 15:08 LRN [id number]) Posture Evaluation Position Sitting Head/C-Spine Posture Forward Head T-Spine Posture Flattened L-Spine Posture Increased Lordosis Knee Posture (L) Genu Valgus,(R) Genu Valgus Comments Posture Comments Sits side shifted to the right . Palpation Assessment Location L hand Palpation Location Hand Palpation Findings Edema Palpation Details Generalized swelling at L hand . L elbow Palpation Location Nerve pain at funny bone radiates from elbow to hand. Palpation Findings Edema,Tenderness L wrist Palpation Location Both sides of L wrist and MCP joints Palpation Findings Edema,Tenderness Palpation Details Pain with movement. PT-OP-K Range of Motion Start: 11/12/20 17:31 Freq: Status: Active Protocol: Document 12/09/20 12:40 LRN (Rec: 12/09/20 13:32 LRN [id number]) Elbow/Forearm Range of Motion Elbow/Forearm Right Active Elbow/Forearm ROM WFL Yes ROM Testing Position Sitting Pronation (degrees) 90 Supination (degrees) 90 Comments Otherwise AROM is WNL Left Active Elbow/Forearm ROM WFL No ROM Testing Position Sitting Pronation (degrees) 60 Supination (degrees) 40 Wrist Goniometric Range of Motion Wrist Right Wrist ROM WFL Yes Flexion Active (degrees) 70 Extension Active (degrees) 60 Ulnar Deviation Active (degrees) 22 Radial Deviation Active (degrees) 35 Left Wrist ROM WFL No Flexion Active (degrees) 40 Extension Active (degrees) 44 Ulnar Deviation Active (degrees) 20 Radial Deviation Active (degrees) 16 ROM Limitations Wrist Limitations of Range of Motion Soft Tissue Tightness,Muscle Weakness,Pain Comments L wrist ROM before therapy: flexion - 18 deg's, ext - 46 deg's, UD - 20 deg's, RD - 16 deg's. After stretching (in deg's): Flex - 28 active, 42 passive ( forearm in pron); Ext is 44 active 64 passive (forearm in supination). UD active 20, passive 30; RD active 16, passive 30. PT-OP-M Strength Start: 11/12/20 17:31 Freq: Status: Active Protocol: Document 11/14/20 14:14 LRN (Rec: 11/14/20 15:08 LRN [id number]) Elbow/Forearm Strength Elbow and Forearm Manual Muscle Testing Right Flexion (C6) 5 Normal Extension (C7) 5 Normal Pronation 5 Normal Supination 5 Normal Left Flexion (C6) 5 Normal Extension (C7) 5 Normal Comments Deferred testing of supination & pronation due to strength restrictions from L distal radius fracture. Wrist Strength Wrist Manual Muscle Testing Right Comments Generally 5/5 Left Comments Deferred due to strength restrictions limited to hold a cup of coffee or 2# wgt. Hand Pitch Filler/Pinch Strength Hand Dominance Hand Dominance Right Hand Strength Left Comments Deferred due to strength restrictions of the hand. PT-OP-Q Treatments Start: 11/12/20 17:31 Freq: Status: Active Protocol: Document 12/16/20 10:42 LRN (Rec: 12/16/20 11:52 LRN [id number]) Therapeutic Exercises Sitting Exercises Elbow flex/ext Sitting Exercise Name Active flex/ext (wrist in neutral) Side left Equipment Used 1# Reps/Minutes 15x 2 each Gripping ex Sitting Exercise Name Gripping - Thumb 3 positions: in, out, on top Side left Equipment Used Yellow T-Putty Reps/Minutes 4' L RD Sitting Exercise Name Radial deviation PROM/AROM stretch Side left Equipment Used 1# Reps/Minutes 15x Comments Cuing needed for proper positioning L UD Sitting Exercise Name Ulnar Deviation passive & active stretch Side left Equipment Used 1# Reps/Minutes 15x Comments Cuing needed for proper positioning Supination Sitting Exercise Name Supination manual stretch & strengthening Side left Equipment Used 1# Reps/Minutes 15x Comments Cuing and phys assist needed for proper positioning Pronation Sitting Exercise Name Pronation manual stretch & strengthening Side left Equipment Used 1# Reps/Minutes 15x Comments Cuing and phys assist needed for proper positioning Manual Therapy Treatment Soft Tissue Mobilization Posterior L arm Body Location L Posterior Forearm/wrist hand Mobilization Type Strumming Intensity/Depth Moderate Body Position Sitting Comments Focus on Ulnar side Anterior L arm Body Location L Anterior Forearm/wrist (UD)/ hand Mobilization Type Strumming Intensity/Depth Moderate Body Position Sitting Comments Focus on Ulnar side Self-Care/Home Management Treatment Activities Self-Care/Home Management Activities Issued & reviewed HEP: Finger curl gripping and thumb flexion gripping. Issued Yellow T-PUtty PT-OP-R Modalities Start: 11/12/20 17:31 Freq: Status: Active Protocol: Document 12/09/20 12:40 LRN (Rec: 12/09/20 13:32 LRN [id number]) Hot Pack/Cold Pack Treatment Cold Pack Location L wrist/forearm Patient Position Sitting Treatment Duration (minutes) 10 Patient Tolerance Good PT-OP-T Assessment and Plan Start: 11/12/20 17:31 Freq: Status: Active Protocol: Document 12/16/20 10:42 LRN (Rec: 12/16/20 11:52 LRN [id number]) Physical Therapy Assessment Rehab Potential Rehabilitation Potential Good Evaluation Complexity Number of Personal Factors/Comorbidities 3 or More Number of Body Systems Impaired 4 or More Clinical Presentation at Evaluation Evolving Impairments Impairments Activity Tolerance,Functional Mobility,Pain,ROM,Soft Tissue Mobility,Strength Goals Three Impairment Decreased L wrist strength Impairment Not formally assessed, but pt has difficulty moving her L hand/wrist against gravity. Short Term Goal (STG) Improve L wrist strength to 3/ 5 with pt able to use her L hand for functional activities (dressing) without pain. STG Duration 01/06/21 Retirement Goal (LTG) Pt will be able to tolerate light level sweeping and floor cleaning using both hands with tolerable discomfort. 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 (11/29/20: L wrist AROM improving). STG Duration 12/28/20 (11/29/20: Improving ) Microbiology Instructor Goal (LTG) Be able to place light objects on top shelves without L wrist pain. LTG Duration 02/07/21 One Impairment Lacks appropriate self care HEP Microbiology Instructor Goal (LTG) Pt will be independent with a progressive self retirement program of wrist, elbow & finger ROM and strengthening ex's. (11/26/20: I/S given for wrist PROM & AROM ex's & self MWM of infer glide of ulna with ROM 12/16/20: HEP: Gripping, with yellow T-Putty issued) LTG Duration 02/07/21 (12/16/20: Progressed) Progress Towards Goals Progress Comments Progressed HEP for light strengthening. Assessment Summary Assessment New referral for HEP, ROM, and strengthening. Pt had + response to K-tape with reduction and intermittent elimination of distal ulnar pain with AROM L wrist. She primarily has pain in medial to distal ulna with active wrist extension. Pt tolerated gripping and resisted wrist AROM (1#) without complaints of pain. Good tolerance to L forearm & wrist PROM of Sup, Pron, flex, extension. New goal for strengthening needed with referral for strengthening. Pt insurance limits her therapy rehabilitation to 4 more weeks ; therefore pt will need to be on a HEP for self progression after her 4 weeks. Physical Therapy Plan Frequency and Duration Frequency of Treatment 1x/Week Plan of Care Start Date 12/16/20 Plan of Care End Date 02/07/21 Therapeutic Interventions Therapeutic Interventions Home Exercise Program,Joint Mobilizations,Manual Therapy, Neuromuscular Re-education, Patient/Caregiver Education, Self-Care/Home Management,Soft Tissue Mobilization,Taping, Therapeutic Exercises Modalities Cold Pack/Ice Massage,Hot Packs Next Visit Focus/Plan Next Note Type Treatment Note Next Visit Plan Pt insurance limited to 9 units, therefore decrease treatment to 2 units for 5 more visits . Pt ~12 wks distal L radial fracture. Cont AROM and PROM of L wrist and progress strengthening of L wrist, fingers, forearm, elbow, as pt tolerates. HEP of ROM ex's. STM & cold pack to wrist as needed.
--- NOTE | 2020-12-16 11:57 | PT.OPPOC ---
Physical, Occupational & Speech Therapy At Located Within [facility] Current Diagnoses Other fractures of lower end of left radius, initial encounter for closed fracture (12/16/20) Visit Care Team Role Provider Type Haley Pereyra MD Primary Care Provider Non-Staff Specialty: Family Practice Address: [address] , [place], [address] Email: Lucy Perez MD Attending Provider Physician Referring Provider Specialty: Orthopedics Address: [address] [place] [address], [place], [address] Email: [email or web address] Plan Of Care PT-OP-T Assessment and Plan Start: 11/12/20 17:31 Freq: Status: Active Protocol: Document 12/16/20 10:42 LRN (Rec: 12/16/20 11:52 LRN [id number]) Physical Therapy Assessment Rehab Potential Rehabilitation Potential Good Evaluation Complexity Number of Personal Factors/Comorbidities 3 or More Number of Body Systems Impaired 4 or More Clinical Presentation at Evaluation Evolving Impairments Impairments Activity Tolerance,Functional Mobility,Pain,ROM,Soft Tissue Mobility,Strength Goals Three Impairment Decreased L wrist strength Impairment Not formally assessed, but pt has difficulty moving her L hand/wrist against gravity. Short Term Goal (STG) Improve L wrist strength to 3/ 5 with pt able to use her L hand for functional activities (dressing) without pain. STG Duration 01/06/21 Skilled Nursing Goal (LTG) Pt will be able to tolerate light level sweeping and floor cleaning using both hands with tolerable discomfort. 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 (11/29/20: L wrist AROM improving). STG Duration 12/28/20 (11/29/20: Improving ) Skilled Nursing Goal (LTG) Be able to place light objects on top shelves without L wrist pain. LTG Duration 02/07/21 One Impairment Lacks appropriate self care HEP Skilled Nursing Goal (LTG) Pt will be independent with a progressive self nursing home program of wrist, elbow & finger ROM and strengthening ex's. (11/26/20: I/S given for wrist PROM & AROM ex's & self MWM of infer glide of ulna with ROM 12/16/20: HEP: Gripping, with yellow T-Putty issued) LTG Duration 02/07/21 (12/16/20: Progressed) Progress Towards Goals Progress Comments Progressed HEP for light strengthening. Assessment Summary Assessment New referral for HEP, ROM, and strengthening. Pt had + response to K-tape with reduction and intermittent elimination of distal ulnar pain with AROM L wrist. She primarily has pain in medial to distal ulna with active wrist extension. Pt tolerated gripping and resisted wrist AROM (1#) without complaints of pain. Good tolerance to L forearm & wrist PROM of Sup, Pron, flex, extension. New goal for strengthening needed with referral for strengthening. Pt insurance limits her therapy rehabilitation to 4 more weeks ; therefore pt will need to be on a HEP for self progression after her 4 weeks. Physical Therapy Plan Frequency and Duration Frequency of Treatment 1x/Week Plan of Care Start Date 12/16/20 Plan of Care End Date 02/07/21 Therapeutic Interventions Therapeutic Interventions Home Exercise Program,Joint Mobilizations,Manual Therapy, Neuromuscular Re-education, Patient/Caregiver Education, Self-Care/Home Management,Soft Tissue Mobilization,Taping, Therapeutic Exercises Modalities Cold Pack/Ice Massage,Hot Packs Next Visit Focus/Plan Next Note Type Treatment Note Next Visit Plan Pt insurance limited to 9 units, therefore decrease treatment to 2 units for 5 more visits . Pt ~12 wks distal L radial fracture. Cont AROM and PROM of L wrist and progress strengthening of L wrist, fingers, forearm, elbow, as pt tolerates. HEP of ROM ex's. STM & cold pack to wrist as needed. Plan of Care Dates Plan of Care Start Date 12/16/20 Plan of Care End Date 02/07/21 Electronically Signed by: Elvia Lerner, PT 12/16/20 [id number] Please Sign and Return: I have reviewed this Plan of Care and certify that the skilled therapy services above are required to meet the patient?s needs. Physician Signature Date Printed Name and Credentials Clinical Instructor Signature Printed Name and Credentials
--- NOTE | 2020-12-23 17:28 | PT.OTN ---
Current Diagnoses Other fractures of lower end of left radius, initial encounter for closed fracture (12/23/20) Physical Therapy Treatment Note PT-OP-A Visit Information Start: 11/12/20 17:31 Freq: Status: Active Protocol: Document 12/23/20 10:36 LRN (Rec: 12/23/20 11:23 LRN [id number]) Out-Patient Physical Therapy Visit Information Visit Information Visit Type Treatment Note Visit Note New referral received on 12/13 Visit Start Time 10:36 Visit Stop Time 11:21 Total Visit Minutes 45 Visit Number 7 Evaluation Information Evaluation Date 11/14/20 Precautions Precautions Per pt: Osteoporosis, back 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 PT-OP-B Current Condition Start: 11/12/20 17:31 Freq: Status: Active Protocol: Document 11/14/20 14:14 LRN (Rec: 11/14/20 15:08 LRN [id number]) Current Condition History of Current Condition Onset Date 09/22/20 Current Complaints L wrist sore/swelling on lat side, & can't bend wrist and fingers into ext. History of Current Condition Fractured L distal radius after slipping and falling backwards, landing on her buttocks and hands. Wore a splint for 10 days then was casted 10/01/20. Cast was removed 10/30/20 and was given referral for physical therapy. Wearing a soft wrist splint . Pt is having trouble with sweeping and mopping and doing dishes and laundry due to pain. Note: pt referral indicates restriction: Not lifting more than a coffee cup or 2# until 9 weeks postop (pt reports no surgery, just fracture). Prior Treatments and Tests Used Vicodin, but discontinued because she didn't like the way it made her feel. For pain, she has a drink every night and sometimes uses marijuana edibles. Future Testing and Treatments Planned Next follow up with referring physician: 12/11/20, but was not supposed to return until after 6 weeks of therapy. 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 Be able to place light objects on top shelves without L wrist pain. Be able to sweep, mob her floors and do laundry without L wrist pain. Prior Functional Status Baseline Function- ADL's Independent Baseline Function- Mobility Independent Baseline Function- Work/School Lives with mother and does all housework. Sweeps floor, washes dishes, and did laundry without L wrist pain. No L wrist pain with putting pants on and hooking bra from behind. Baseline Function- Recreation/Hobbies Gardening Walking dog on a leash. Current Functional Impairments (Reported) Functional Limitations- ADL's Difficulty using L hand to place dishes on top shelf. 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 Not able to walk dog while holding leash with L hand due to pain. Not able to mop or sweep floor using both hands due to pain. Functional Limitations- Work/School Unemployed, lives at home with mother. Requires help from mother to do all housework. Functional Limitations- Recreation/ Not able to garden. 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 PT-OP-C Subjective Start: 11/12/20 17:31 Freq: Status: Active Protocol: Document 12/23/20 10:36 LRN (Rec: 12/23/20 11:23 LRN [id number]) OP-PT Subjective Patient Comments Patient Comments Sore this last week in L distal foream, ulnar side and digits 3, 4,5. Used IBP. PT-OP-H Neuro Start: 11/12/20 17:31 Freq: Status: Active Protocol: Document 11/14/20 14:14 LRN (Rec: 11/14/20 15:08 LRN [id number]) Sensation Evaluation Gross Sensation Gross Sensation WNL PT-OP-J Posture/Palpation/Skin Start: 11/12/20 17:31 Freq: Status: Active Protocol: Document 11/14/20 14:14 LRN (Rec: 11/14/20 15:08 LRN [id number]) Posture Evaluation Position Sitting Head/C-Spine Posture Forward Head T-Spine Posture Flattened L-Spine Posture Increased Lordosis Knee Posture (L) Genu Valgus,(R) Genu Valgus Comments Posture Comments Sits side shifted to the right . Palpation Assessment Location L hand Palpation Location Hand Palpation Findings Edema Palpation Details Generalized swelling at L hand . L elbow Palpation Location Nerve pain at funny bone radiates from elbow to hand. Palpation Findings Edema,Tenderness L wrist Palpation Location Both sides of L wrist and MCP joints Palpation Findings Edema,Tenderness Palpation Details Pain with movement. PT-OP-K Range of Motion Start: 11/12/20 17:31 Freq: Status: Active Protocol: Document 12/23/20 10:36 LRN (Rec: 12/23/20 11:23 LRN [id number]) Wrist Goniometric Range of Motion Wrist Right Flexion Active (degrees) 65 Extension Active (degrees) 50 Left Flexion Active (degrees) 50 Extension Active (degrees) 50 PT-OP-M Strength Start: 11/12/20 17:31 Freq: Status: Active Protocol: Document 11/14/20 14:14 LRN (Rec: 11/14/20 15:08 LRN [id number]) Elbow/Forearm Strength Elbow and Forearm Manual Muscle Testing Right Flexion (C6) 5 Normal Extension (C7) 5 Normal Pronation 5 Normal Supination 5 Normal Left Flexion (C6) 5 Normal Extension (C7) 5 Normal Comments Deferred testing of supination & pronation due to strength restrictions from L distal radius fracture. Wrist Strength Wrist Manual Muscle Testing Right Comments Generally 5/5 Left Comments Deferred due to strength restrictions limited to hold a cup of coffee or 2# wgt. Hand Chemical Waste Management Technician/Pinch Strength Hand Dominance Hand Dominance Right Hand Strength Left Comments Deferred due to strength restrictions of the hand. 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 Side left Reps/Minutes 2' Supination Sitting Exercise Name Supination manual stretch & strengthening Side left Equipment Used 1# Reps/Minutes 3' (15x rep) Comments Cuing and phys assist needed for proper positioning Pronation Sitting Exercise Name Pronation manual stretch & strengthening Side left Equipment Used 1# Reps/Minutes 3' (15x rep) Comments Cuing and phys assist needed for proper positioning Wrist Flex Sitting Exercise Name Forearm pron: PROM/AROM wrist flex Side left Reps/Minutes 5' Wrist ext Sitting Exercise Name Forearm sup: PROM/AROM wrist ext Side left Reps/Minutes 5' Comments ROM taken, Extra time for maximizing ROM and set up Manual Therapy Treatment Soft Tissue Mobilization Posterior L arm Body Location L Posterior Forearm/wrist hand Mobilization Type Strumming Intensity/Depth Moderate Body Position Sitting Comments Focus on Ulnar side Anterior L arm Body Location L Anterior Forearm/wrist (UD)/ hand Mobilization Type Strumming Intensity/Depth Moderate Body Position Sitting Comments Focus on Ulnar side Joint Mobilizations L Carpel Bones Joint L Carpel Bones Direction PA/AP Grade II Reps/Duration 8' Manual Techniques MWM wrist ext/flex Type Volar & anterior glide of ulna with wrist ext Body Location L proximal ulna Body Position Sitting Reps/Duration 3' Comments Relief of Ulnar side pain during MWM with wrist ext Self-Care/Home Management Treatment Education Patient Education Home Exercise Program Activities Self-Care/Home Management Activities Issued & reviewed HEP: Isometric UD, stretch for pronation/supination/Flex/Ext. PT-OP-R Modalities Start: 11/12/20 17:31 Freq: Status: Active Protocol: Document 12/09/20 12:40 LRN (Rec: 12/09/20 13:32 LRN [id number]) Hot Pack/Cold Pack Treatment Cold Pack Location L wrist/forearm Patient Position Sitting Treatment Duration (minutes) 10 Patient Tolerance Good PT-OP-T Assessment and Plan Start: 11/12/20 17:31 Freq: Status: Active Protocol: Document 12/23/20 10:36 LRN (Rec: 12/23/20 11:23 LRN [id number]) Physical Therapy Assessment Goals Three Impairment Decreased L wrist strength Impairment Not formally assessed, but pt has difficulty moving her L hand/wrist against gravity. Short Term Goal (STG) Improve L wrist strength to 3/ 5 with pt able to use her L hand for functional activities (dressing) without pain. STG Duration 01/06/21 Clinical Informatics Director Goal (LTG) Pt will be able to tolerate light level sweeping and floor cleaning using both hands with tolerable discomfort. 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 (11/29/20: L wrist AROM improving). STG Duration 12/28/20 (11/29/20: Improving ) Clinical Informatics Director Goal (LTG) Be able to place light objects on top shelves without L wrist pain. LTG Duration 02/07/21 One Impairment Lacks appropriate self care HEP Senior Living Goal (LTG) Pt will be independent with a progressive self usp program of wrist, elbow & finger ROM and strengthening ex's. (11/26/20: I/S given for wrist PROM & AROM ex's & self MWM of infer glide of ulna with ROM 12/16/20: HEP: Gripping, with yellow T-Putty issued) (12/23/20: HEP: Stretch to wrist flex/ext/sup/pron & jenise UD strengthening). LTG Duration 02/07/21 (12/23/20: Progressed) Progress Towards Goals Progress Comments Progressed HEP. Assessment Summary Assessment Pt L hand appears shifted to radial side. She has pain primarily in the ulna side with wrist ROM. She is more sore today; possibly due to increased use. She has swelling in the wrist in the interossous region of the distal wrist, without pain on palpation. Her wrist ROM is improving slowly with flexion/ ext/pron/sup. UD/RD not measured. Focus needs to be on self care HEP due to pt's very limited insurance coverage. Physical Therapy Plan Frequency and Duration Frequency of Treatment 1x/Week Plan of Care Start Date 12/16/20 Plan of Care End Date 02/07/21 Next Visit Focus/Plan Next Note Type Treatment Note Next Visit Plan Pt insurance limited to 7 units, therefore decrease treatment to 2 units for 4 more visits. Pt ~12 wks distal L radial fracture. Focus on self care program due to limited visits. Add to HEP: L elbow and wrist & fingers, forearm strengthening ex's. Cont AROM and PROM of L wrist. STM as needed.
--- NOTE | 2020-12-30 16:39 | PT.OTN ---
Current Diagnoses Other fractures of lower end of left radius, initial encounter for closed fracture (12/30/20) Physical Therapy Treatment Note PT-OP-A Visit Information Start: 11/12/20 17:31 Freq: Status: Active Protocol: Document 12/30/20 10:41 LRN (Rec: 12/30/20 11:21 LRN [id number]) Out-Patient Physical Therapy Visit Information Visit Information Visit Type Treatment Note Visit Note New referral received on 12/13 Visit Start Time 10:41 Visit Stop Time 11:16 Total Visit Minutes 35 Visit Number 6 Evaluation Information Evaluation Date 11/14/20 Precautions Precautions Per pt: Osteoporosis, back 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 PT-OP-B Current Condition Start: 11/12/20 17:31 Freq: Status: Active Protocol: Document 11/14/20 14:14 LRN (Rec: 11/14/20 15:08 LRN [id number]) Current Condition History of Current Condition Onset Date 09/22/20 Current Complaints L wrist sore/swelling on lat side, & can't bend wrist and fingers into ext. History of Current Condition Fractured L distal radius after slipping and falling backwards, landing on her buttocks and hands. Wore a splint for 10 days then was casted 10/01/20. Cast was removed 10/30/20 and was given referral for physical therapy. Wearing a soft wrist splint . Pt is having trouble with sweeping and mopping and doing dishes and laundry due to pain. Note: pt referral indicates restriction: Not lifting more than a coffee cup or 2# until 9 weeks postop (pt reports no surgery, just fracture). Prior Treatments and Tests Used Vicodin, but discontinued because she didn't like the way it made her feel. For pain, she has a drink every night and sometimes uses marijuana edibles. Future Testing and Treatments Planned Next follow up with referring physician: 12/11/20, but was not supposed to return until after 6 weeks of therapy. 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 Be able to place light objects on top shelves without L wrist pain. Be able to sweep, mob her floors and do laundry without L wrist pain. Prior Functional Status Baseline Function- ADL's Independent Baseline Function- Mobility Independent Baseline Function- Work/School Lives with mother and does all housework. Sweeps floor, washes dishes, and did laundry without L wrist pain. No L wrist pain with putting pants on and hooking bra from behind. Baseline Function- Recreation/Hobbies Gardening Walking dog on a leash. Current Functional Impairments (Reported) Functional Limitations- ADL's Difficulty using L hand to place dishes on top shelf. 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 Not able to walk dog while holding leash with L hand due to pain. Not able to mop or sweep floor using both hands due to pain. Functional Limitations- Work/School Unemployed, lives at home with mother. Requires help from mother to do all housework. Functional Limitations- Recreation/ Not able to garden. 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 PT-OP-C Subjective Start: 11/12/20 17:31 Freq: Status: Active Protocol: Document 12/30/20 10:41 LRN (Rec: 12/30/20 11:21 LRN [id number]) OP-PT Subjective Patient Comments Patient Comments States she did yardwork for 1 hour and the L ulnar wrist side has been painful. Slept with wrist splint and states it feels much better. Pain in L lateral wrist is 3/10. PT-OP-H Neuro Start: 11/12/20 17:31 Freq: Status: Active Protocol: Document 11/14/20 14:14 LRN (Rec: 11/14/20 15:08 LRN [id number]) Sensation Evaluation Gross Sensation Gross Sensation WNL PT-OP-J Posture/Palpation/Skin Start: 11/12/20 17:31 Freq: Status: Active Protocol: Document 11/14/20 14:14 LRN (Rec: 11/14/20 15:08 LRN [id number]) Posture Evaluation Position Sitting Head/C-Spine Posture Forward Head T-Spine Posture Flattened L-Spine Posture Increased Lordosis Knee Posture (L) Genu Valgus,(R) Genu Valgus Comments Posture Comments Sits side shifted to the right . Palpation Assessment Location L hand Palpation Location Hand Palpation Findings Edema Palpation Details Generalized swelling at L hand . L elbow Palpation Location Nerve pain at funny bone radiates from elbow to hand. Palpation Findings Edema,Tenderness L wrist Palpation Location Both sides of L wrist and MCP joints Palpation Findings Edema,Tenderness Palpation Details Pain with movement. PT-OP-K Range of Motion Start: 11/12/20 17:31 Freq: Status: Active Protocol: Document 12/30/20 10:41 LRN (Rec: 12/30/20 11:21 LRN [id number]) Wrist Goniometric Range of Motion Wrist Right Flexion Active (degrees) 65 Extension Active (degrees) 50 Left Flexion Active (degrees) 50 Flexion Passive (degrees) 60 Extension Active (degrees) 65 Extension Passive (degrees) 70 PT-OP-M Strength Start: 11/12/20 17:31 Freq: Status: Active Protocol: Document 11/14/20 14:14 LRN (Rec: 11/14/20 15:08 LRN [id number]) Elbow/Forearm Strength Elbow and Forearm Manual Muscle Testing Right Flexion (C6) 5 Normal Extension (C7) 5 Normal Pronation 5 Normal Supination 5 Normal Left Flexion (C6) 5 Normal Extension (C7) 5 Normal Comments Deferred testing of supination & pronation due to strength restrictions from L distal radius fracture. Wrist Strength Wrist Manual Muscle Testing Right Comments Generally 5/5 Left Comments Deferred due to strength restrictions limited to hold a cup of coffee or 2# wgt. Hand Work Station Support Specialist/Pinch Strength Hand Dominance Hand Dominance Right Hand Strength Left Comments Deferred due to strength restrictions of the hand. 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 Side left Reps/Minutes 3' L RD Sitting Exercise Name Radial deviation PROM/AROM stretch Side left Equipment Used 0# & 1# Reps/Minutes 15x, 15x 2, respectively Comments Cuing needed for proper positioning L UD Sitting Exercise Name Ulnar Deviation passive & active stretch Side left Equipment Used 0# & 1# Reps/Minutes 15x, 15x 2 w/MWM, respectively Comments Cuing needed for proper positioning Supination Sitting Exercise Name Supination manual stretch & strengthening Side left Equipment Used 0#, 1# Reps/Minutes 30x , 15x , respectively Comments Cuing and phys assist needed for proper positioning Pronation Sitting Exercise Name Pronation manual stretch & strengthening Side left Equipment Used 1# Reps/Minutes 30x, 15x , respectively Comments Cuing and phys assist needed for proper positioning Wrist Flex Sitting Exercise Name Forearm sup: Stretch & AROM wrist flex Side left Reps/Minutes 5' Wrist ext Sitting Exercise Name Forearm pron: Stretch & AROM wrist ext Side left Reps/Minutes 5' Comments ROM taken, PT-OP-R Modalities Start: 11/12/20 17:31 Freq: Status: Active Protocol: Document 12/09/20 12:40 LRN (Rec: 12/09/20 13:32 LRN [id number]) Hot Pack/Cold Pack Treatment Cold Pack Location L wrist/forearm Patient Position Sitting Treatment Duration (minutes) 10 Patient Tolerance Good PT-OP-T Assessment and Plan Start: 11/12/20 17:31 Freq: Status: Active Protocol: Document 12/30/20 10:41 LRN (Rec: 12/30/20 11:21 LRN [id number]) Physical Therapy Assessment Goals Three Impairment Decreased L wrist strength Impairment Not formally assessed, but pt has difficulty moving her L hand/wrist against gravity. Short Term Goal (STG) Improve L wrist strength to 3/ 5 with pt able to use her L hand for functional activities (dressing) without pain. STG Duration 01/06/21 (12/30/20: MET GOAL) Fish Peddler Goal (LTG) Pt will be able to tolerate light level sweeping and floor cleaning using both hands with tolerable discomfort. 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 (11/29/20: L wrist AROM improving). STG Duration 12/28/20 (11/29/20: Improving ) Residential Goal (LTG) Be able to place light objects on top shelves without L wrist pain. LTG Duration 02/07/21 One Impairment Lacks appropriate self care HEP Fish Peddler Goal (LTG) Pt will be independent with a progressive self alf program of wrist, elbow & finger ROM and strengthening ex's. (11/26/20: I/S given for wrist PROM & AROM ex's & self MWM of infer glide of ulna with ROM 12/16/20: HEP: Gripping, with yellow T-Putty issued) (12/23/20: HEP: Stretch to wrist flex/ext/sup/pron & jenise UD strengthening). LTG Duration 02/07/21 (12/23/20: Progressed) Progress Towards Goals Progress Comments STG #3 MEt GOAL. LTG # # Partially met goal. Assessment Summary Assessment + response to use of MH to forearm before stretching. Pt had flare up yesterday after working in yard for 1 hour. Pt appears to have much better understanding of progressive use of L wrist to avoid flare ups. Pt had forearm pain after first 15 reps of wrist ext with 1# wgt. L Wrist AROM/PROM much improved after stretching. Good toleance to strengthening . 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 Physical Therapy Plan Frequency and Duration Frequency of Treatment 1x/Week Plan of Care Start Date 12/16/20 Plan of Care End Date 02/07/21 Next Visit Focus/Plan Next Note Type Treatment Note Next Visit Plan Pt insurance limited to 7 units, therefore decrease treatment to 2 units for 2 more visits, except last visit 1 unit. Pt ~12 wks distal L radial fracture. Focus on self care program due to limited visits. Assess pt's ability to use L hand to load and unload her rn hemo dialysis without pain. Add to HEP: L elbow and wrist & fingers, forearm strengthening ex's. Cont AROM and PROM of L wrist. STM as needed.
--- NOTE | 2021-01-06 12:20 | PT.OTN ---
Current Diagnoses Other fractures of lower end of left radius, initial encounter for closed fracture (01/06/21) Physical Therapy Treatment Note PT-OP-A Visit Information Start: 11/12/20 17:31 Freq: Status: Active Protocol: Document 01/06/21 10:39 LRN (Rec: 01/06/21 12:19 LRN [id number]) Out-Patient Physical Therapy Visit Information Visit Information Visit Type Treatment Note Visit Note New referral received on 12/13 Visit Start Time 10:39 Visit Stop Time 11:04 Total Visit Minutes 35 Visit Number 7 Evaluation Information Evaluation Date 11/14/20 Precautions Precautions Per pt: Osteoporosis, back 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 PT-OP-B Current Condition Start: 11/12/20 17:31 Freq: Status: Active Protocol: Document 11/14/20 14:14 LRN (Rec: 11/14/20 15:08 LRN [id number]) Current Condition History of Current Condition Onset Date 09/22/20 Current Complaints L wrist sore/swelling on lat side, & can't bend wrist and fingers into ext. History of Current Condition Fractured L distal radius after slipping and falling backwards, landing on her buttocks and hands. Wore a splint for 10 days then was casted 10/01/20. Cast was removed 10/30/20 and was given referral for physical therapy. Wearing a soft wrist splint . Pt is having trouble with sweeping and mopping and doing dishes and laundry due to pain. Note: pt referral indicates restriction: Not lifting more than a coffee cup or 2# until 9 weeks postop (pt reports no surgery, just fracture). Prior Treatments and Tests Used Vicodin, but discontinued because she didn't like the way it made her feel. For pain, she has a drink every night and sometimes uses marijuana edibles. Future Testing and Treatments Planned Next follow up with referring physician: 12/11/20, but was not supposed to return until after 6 weeks of therapy. 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 Be able to place light objects on top shelves without L wrist pain. Be able to sweep, mob her floors and do laundry without L wrist pain. Prior Functional Status Baseline Function- ADL's Independent Baseline Function- Mobility Independent Baseline Function- Work/School Lives with mother and does all housework. Sweeps floor, washes dishes, and did laundry without L wrist pain. No L wrist pain with putting pants on and hooking bra from behind. Baseline Function- Recreation/Hobbies Gardening Walking dog on a leash. Current Functional Impairments (Reported) Functional Limitations- ADL's Difficulty using L hand to place dishes on top shelf. 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 Not able to walk dog while holding leash with L hand due to pain. Not able to mop or sweep floor using both hands due to pain. Functional Limitations- Work/School Unemployed, lives at home with mother. Requires help from mother to do all housework. Functional Limitations- Recreation/ Not able to garden. 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 PT-OP-C Subjective Start: 11/12/20 17:31 Freq: Status: Active Protocol: Document 01/06/21 10:39 LRN (Rec: 01/06/21 12:19 LRN [id number]) OP-PT Subjective Patient Comments Patient Comments Last week L wrist pretty bad . Wore brace all week. 2 days ago started to feel better to use L hand without brace. Didn't do yardwork like the wek before. Can't lift dishes with L hand. Did weights (3#) and stretching yesterday. PT-OP-H Neuro Start: 11/12/20 17:31 Freq: Status: Active Protocol: Document 11/14/20 14:14 LRN (Rec: 11/14/20 15:08 LRN [id number]) Sensation Evaluation Gross Sensation Gross Sensation WNL PT-OP-J Posture/Palpation/Skin Start: 11/12/20 17:31 Freq: Status: Active Protocol: Document 11/14/20 14:14 LRN (Rec: 11/14/20 15:08 LRN [id number]) Posture Evaluation Position Sitting Head/C-Spine Posture Forward Head T-Spine Posture Flattened L-Spine Posture Increased Lordosis Knee Posture (L) Genu Valgus,(R) Genu Valgus Comments Posture Comments Sits side shifted to the right . Palpation Assessment Location L hand Palpation Location Hand Palpation Findings Edema Palpation Details Generalized swelling at L hand . L elbow Palpation Location Nerve pain at funny bone radiates from elbow to hand. Palpation Findings Edema,Tenderness L wrist Palpation Location Both sides of L wrist and MCP joints Palpation Findings Edema,Tenderness Palpation Details Pain with movement. PT-OP-K Range of Motion Start: 11/12/20 17:31 Freq: Status: Active Protocol: Document 12/30/20 10:41 LRN (Rec: 12/30/20 11:21 LRN [id number]) Wrist Goniometric Range of Motion Wrist Right Flexion Active (degrees) 65 Extension Active (degrees) 50 Left Flexion Active (degrees) 50 Flexion Passive (degrees) 60 Extension Active (degrees) 65 Extension Passive (degrees) 70 PT-OP-M Strength Start: 11/12/20 17:31 Freq: Status: Active Protocol: Document 11/14/20 14:14 LRN (Rec: 11/14/20 15:08 LRN [id number]) Elbow/Forearm Strength Elbow and Forearm Manual Muscle Testing Right Flexion (C6) 5 Normal Extension (C7) 5 Normal Pronation 5 Normal Supination 5 Normal Left Flexion (C6) 5 Normal Extension (C7) 5 Normal Comments Deferred testing of supination & pronation due to strength restrictions from L distal radius fracture. Wrist Strength Wrist Manual Muscle Testing Right Comments Generally 5/5 Left Comments Deferred due to strength restrictions limited to hold a cup of coffee or 2# wgt. Hand Real Estate Agency Licensee/Pinch Strength Hand Dominance Hand Dominance Right Hand Strength Left Comments Deferred due to strength restrictions of the hand. PT-OP-Q Treatments Start: 11/12/20 17:31 Freq: Status: Active Protocol: Document 01/06/21 10:39 LRN (Rec: 01/06/21 12:19 LRN [id number]) Therapeutic Exercises Sitting Exercises Elbow flex/ext Sitting Exercise Name Elbow flex/ext in neutral and supination Side left Equipment Used 3# Reps/Minutes 15x [address] Sitting Exercise Name Radial deviation PROM/AROM stretch Side left Equipment Used 0# & 1#, review with TB Reps/Minutes 15x, 15x 2, respectively Comments Cuing needed for proper positioning L UD Sitting Exercise Name Ulnar Deviation passive & active stretch Side left Equipment Used 0# & 1#, review with TB Reps/Minutes 15x, 15x 2 w/MWM, respectively Comments Cuing needed for proper positioning Supination Sitting Exercise Name Supination manual stretch & strengthening Side left Equipment Used 0#, 1#, review with TB Reps/Minutes 30x , 15x , respectively Comments Cuing and phys assist needed for proper positioning Pronation Sitting Exercise Name Pronation manual stretch & strengthening Side left Equipment Used 0#, 1#, review with TB Reps/Minutes 30x, 15x respectively Comments Cuing and phys assist needed for proper positioning Wrist Flex Sitting Exercise Name Arm hanging down, Forearm sup: Stretch & AROM wrist flex Side left Equipment Used 3#, Reps/Minutes 15x Wrist ext Sitting Exercise Name Arm hanging down, Forearm pron : Stretch & AROM wrist ext Side left Equipment Used 0, 1# Reps/Minutes 15x Manual Therapy Treatment Soft Tissue Mobilization Dorsal L wrist Body Location Dorsal L wrist Mobilization Type Myofascial Release,Strumming Intensity/Depth Superficial to moderate Body Position Sitting Taping L wrist dorsal side Body Location L dorsal wrist Treatment Focus space correction Type of Tape Kinesio Tape Skin Inspection Good Comments Pt felt good after taping Self-Care/Home Management Treatment Education Patient Education Home Exercise Program Other Education Educated pt in safe and proper removal of K-tape. Activities Self-Care/Home Management Activities Issued & reviewed HEP: Wrist strengthening (flex/ext, UD/RD , Sup/Pron) with wgt, with TBand and review of motion actively. Lev 1 TBand issued. PT-OP-R Modalities Start: 11/12/20 17:31 Freq: Status: Active Protocol: Document 01/06/21 10:39 LRN (Rec: 01/06/21 12:19 LRN [id number]) Hot Pack/Cold Pack Treatment Cold Pack Location L wrist Patient Position Sitting Treatment Duration (minutes) 10 Patient Tolerance Good PT-OP-T Assessment and Plan Start: 11/12/20 17:31 Freq: Status: Active Protocol: Document 01/06/21 10:39 LRN (Rec: 01/06/21 12:19 LRN [id number]) Physical Therapy Assessment Goals Three Impairment Decreased L wrist strength Impairment Not formally assessed, but pt has difficulty moving her L hand/wrist against gravity. Short Term Goal (STG) Improve L wrist strength to 3/ 5 with pt able to use her L hand for functional activities (dressing) without pain. STG Duration 01/06/21 (12/30/20: MET GOAL) Museum Technician Goal (LTG) Pt will be able to tolerate light level sweeping and floor cleaning using both hands with tolerable discomfort. 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 (11/29/20: L wrist AROM improving). STG Duration 12/28/20 (11/29/20: Improving ) Care Home Goal (LTG) Be able to place light objects on top shelves without L wrist pain. LTG Duration 02/07/21 One Impairment Lacks appropriate self care HEP Care Home Goal (LTG) Pt will be independent with a progressive self alf program of wrist, elbow & finger ROM and strengthening ex's. (11/26/20: I/S given for wrist PROM & AROM ex's & self MWM of infer glide of ulna with ROM 12/16/20: HEP: Gripping, with yellow T-Putty issued) (12/23/20: HEP: Stretch to wrist flex/ext/sup/pron & jenise UD strengthening). (01/06/21: Added to HEP: L elbow and wrist & fingers, forearm strengthening ex's.) LTG Duration 02/07/21 (01/06/21: Progressed) Progress Towards Goals Progress Comments Progressed HEP. Assessment Summary Assessment Pt able to perform wrist strengthening without complaints of pain. Appears to have a good understanding of HEP, but review with TB needed. Physical Therapy Plan Frequency and Duration Frequency of Treatment 1x/Week Plan of Care Start Date 12/16/20 Plan of Care End Date 02/07/21 Next Visit Focus/Plan Next Note Type Discharge Summary Next Visit Plan Pt insurance limited to 1 units for 1 more visits; therefore DC next visit to HEP . Pt is s/p distal L radial fracture. Assess response to K-tape. Verbal review of HEP for TBand wrist ext/flex strengthening. 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
--- NOTE | 2021-01-13 11:36 | PT.OTN ---
Current Diagnoses Other fractures of lower end of left radius, initial encounter for closed fracture (01/13/21) Physical Therapy Treatment Note PT-OP-A Visit Information Start: 11/12/20 17:31 Freq: Status: Active Protocol: Document 01/13/21 10:42 LRN (Rec: 01/13/21 11:32 LRN [id number]) Out-Patient Physical Therapy Visit Information Visit Information Visit Type Treatment Note Visit Note New referral received on 12/13 Visit Start Time 10:42 Visit Stop Time 11:04 Total Visit Minutes 22 Visit Number 8 Evaluation Information Evaluation Date 11/14/20 Precautions Precautions Per pt: Osteoporosis, back 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 PT-OP-B Current Condition Start: 11/12/20 17:31 Freq: Status: Active Protocol: Document 11/14/20 14:14 LRN (Rec: 11/14/20 15:08 LRN [id number]) Current Condition History of Current Condition Onset Date 09/22/20 Current Complaints L wrist sore/swelling on lat side, & can't bend wrist and fingers into ext. History of Current Condition Fractured L distal radius after slipping and falling backwards, landing on her buttocks and hands. Wore a splint for 10 days then was casted 10/01/20. Cast was removed 10/30/20 and was given referral for physical therapy. Wearing a soft wrist splint . Pt is having trouble with sweeping and mopping and doing dishes and laundry due to pain. Note: pt referral indicates restriction: Not lifting more than a coffee cup or 2# until 9 weeks postop (pt reports no surgery, just fracture). Prior Treatments and Tests Used Vicodin, but discontinued because she didn't like the way it made her feel. For pain, she has a drink every night and sometimes uses marijuana edibles. Future Testing and Treatments Planned Next follow up with referring physician: 12/11/20, but was not supposed to return until after 6 weeks of therapy. 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 Be able to place light objects on top shelves without L wrist pain. Be able to sweep, mob her floors and do laundry without L wrist pain. Prior Functional Status Baseline Function- ADL's Independent Baseline Function- Mobility Independent Baseline Function- Work/School Lives with mother and does all housework. Sweeps floor, washes dishes, and did laundry without L wrist pain. No L wrist pain with putting pants on and hooking bra from behind. Baseline Function- Recreation/Hobbies Gardening Walking dog on a leash. Current Functional Impairments (Reported) Functional Limitations- ADL's Difficulty using L hand to place dishes on top shelf. 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 Not able to walk dog while holding leash with L hand due to pain. Not able to mop or sweep floor using both hands due to pain. Functional Limitations- Work/School Unemployed, lives at home with mother. Requires help from mother to do all housework. Functional Limitations- Recreation/ Not able to garden. 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 PT-OP-C Subjective Start: 11/12/20 17:31 Freq: Status: Active Protocol: Document 01/13/21 10:42 LRN (Rec: 01/13/21 11:32 LRN [id number]) OP-PT Subjective Patient Comments Patient Comments Has gone a day without the brace, but had to wear it the next day. PT-OP-H Neuro Start: 11/12/20 17:31 Freq: Status: Active Protocol: Document 11/14/20 14:14 LRN (Rec: 11/14/20 15:08 LRN [id number]) Sensation Evaluation Gross Sensation Gross Sensation WNL PT-OP-J Posture/Palpation/Skin Start: 11/12/20 17:31 Freq: Status: Active Protocol: Document 11/14/20 14:14 LRN (Rec: 11/14/20 15:08 LRN [id number]) Posture Evaluation Position Sitting Head/C-Spine Posture Forward Head T-Spine Posture Flattened L-Spine Posture Increased Lordosis Knee Posture (L) Genu Valgus,(R) Genu Valgus Comments Posture Comments Sits side shifted to the right . Palpation Assessment Location L hand Palpation Location Hand Palpation Findings Edema Palpation Details Generalized swelling at L hand . L elbow Palpation Location Nerve pain at funny bone radiates from elbow to hand. Palpation Findings Edema,Tenderness L wrist Palpation Location Both sides of L wrist and MCP joints Palpation Findings Edema,Tenderness Palpation Details Pain with movement. PT-OP-K Range of Motion Start: 11/12/20 17:31 Freq: Status: Active Protocol: Document 01/13/21 10:42 LRN (Rec: 01/13/21 11:32 LRN [id number]) Wrist Goniometric Range of Motion Wrist Right Wrist ROM WFL Yes Flexion Active (degrees) 65 Flexion Passive (degrees) 78 Extension Active (degrees) 60 Extension Passive (degrees) 80 Ulnar Deviation Active (degrees) 22 Ulnar Deviation Passive (degrees) 45 Radial Deviation Active (degrees) 30 Radial Deviation Passive (degrees) 32 Left Flexion Active (degrees) 50 Flexion Passive (degrees) 58 Extension Active (degrees) 58 Extension Passive (degrees) 64 Ulnar Deviation Active (degrees) 28 Ulnar Deviation Passive (degrees) 30 Radial Deviation Active (degrees) 18 Radial Deviation Passive (degrees) 20 PT-OP-M Strength Start: 11/12/20 17:31 Freq: Status: Active Protocol: Document 01/13/21 10:42 LRN (Rec: 01/13/21 11:32 LRN [id number]) Elbow/Forearm Strength Elbow and Forearm Manual Muscle Testing Left Flexion (C6) 5 Normal Extension (C7) 5 Normal Pronation 4+ Good+ Supination 4+ Good+ Wrist Strength Wrist Manual Muscle Testing Left Flexion (C7) 4+ Good+ Extension (C6) 4+ Good+ Ulnar Deviation 4+ Good+ Radial Deviation 4+ Good+ PT-OP-Q Treatments Start: 11/12/20 17:31 Freq: Status: Active Protocol: Document 01/13/21 10:42 LRN (Rec: 01/13/21 11:32 LRN [id number]) Therapeutic Exercises Sitting Exercises L RD Sitting Exercise Name Radial deviation PROM/AROM stretch Side left Equipment Used 2#, review with TB Reps/Minutes 15x Comments ROM taken L UD Sitting Exercise Name Ulnar Deviation passive & active stretch Side left Equipment Used 2#, review with TB Reps/Minutes 15x Comments ROM taken Supination Sitting Exercise Name Supination manual stretch & strengthening Side left Equipment Used 2#, review with TB Reps/Minutes 30x , 15x , respectively Comments Cuing and phys assist needed for proper positioning Pronation Sitting Exercise Name Pronation manual stretch & strengthening Side left Equipment Used 2#, review with TB Reps/Minutes 30x, 15x respectively Comments Cuing and phys assist needed for proper positioning Wrist Flex Sitting Exercise Name Stretch & AROM wrist Flex Side left Equipment Used 2#, review with TB Reps/Minutes 15x Comments ROM taken Wrist ext Sitting Exercise Name Stretch & AROM wrist ext Side left Equipment Used 2#, review with TB Reps/Minutes 15x Comments ROM taken Manual Therapy Treatment Taping L wrist dorsal side Body Location L dorsal wrist Treatment Focus space correction, fan strip at hand Type of Tape Kinesio Tape Skin Inspection Good Comments Pt felt good after taping with active wrist ext. Discussed weaning off of her L wrist brace of 1/2 - 1 hour morning and night every few days as long as pain doesn't worsen, until being able to not require use of the wrist brace. PT-OP-R Modalities Start: 11/12/20 17:31 Freq: Status: Active Protocol: Document 01/06/21 10:39 LRN (Rec: 01/06/21 12:19 LRN [id number]) Hot Pack/Cold Pack Treatment Cold Pack Location L wrist Patient Position Sitting Treatment Duration (minutes) 10 Patient Tolerance Good PT-OP-T Assessment and Plan Start: 11/12/20 17:31 Freq: Status: Active Protocol: Document 01/13/21 10:42 LRN (Rec: 01/13/21 11:32 LRN [id number]) Physical Therapy Assessment Goals Three Impairment Decreased L wrist strength Impairment Not formally assessed, but pt has difficulty moving her L hand/wrist against gravity. Short Term Goal (STG) Improve L wrist strength to 3/ 5 with pt able to use her L hand for functional activities (dressing) without pain. STG Duration 01/06/21 (12/30/20: MET GOAL) Seed Corn Production Manager Goal (LTG) Pt will be able to tolerate light level sweeping and floor cleaning using both hands with tolerable discomfort. 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 (11/29/20: L wrist AROM improving). (01/13/21: Pt able to lift a 2# wgt up a shelf without pain ). STG Duration 12/28/20 (01/13/21: MET GOAL ) Alf Goal (LTG) Be able to place light objects on top shelves without L wrist pain. (01/13/21: Pt able to lift a 2# wgt up a shelf without pain ). LTG Duration 02/07/21 (01/13/21: MET GOAL) One Impairment Lacks appropriate self care HEP Seed Corn Production Manager Goal (LTG) Pt will be independent with a progressive self fpc program of wrist, elbow & finger ROM and strengthening ex's. (11/26/20: I/S given for wrist PROM & AROM ex's & self MWM of infer glide of ulna with ROM 12/16/20: HEP: Gripping, with yellow T-Putty issued) (12/23/20: HEP: Stretch to wrist flex/ext/sup/pron & jenise UD strengthening). (01/06/21: Added to HEP: L elbow and wrist & fingers, forearm strengthening ex's.) LTG Duration 02/07/21 (01/13/21: MET GOAL) Assessment Summary Assessment The pt is having much less pain in the L lateral forearm with use of her wrist. She has some swelling present at the distal wrist, but no complaints of pain. Pt has functional weakness of the L wrist for heavy use and has not been able to wean off use of her brace. Pt is aware of how to wean off the brace after discussioin and education in a reduction in hours of wear over time; therefore it is expected that the pt will be able to successfully wean off her brace with time. The pt has gained good strength in her L wrist/forearm, but weakness remains for functional activities requiring heavier use of her L hand. Since the pt is R handed she tends to use her R side more for activities, but is aware of her ROM (flex/UD) and strength deficits. She has a HEP to help her progress in her strengthening. The pt is agreeable to being discharged from therapy to her home program due to insurance limitations. Physical Therapy Plan Discharge Physical Therapy Discharge Reasons Goals Met Discharge Comments Thank you for your referral.
== END 2021-04-01 09:48 ==
LOC: PHYS 10:30
PROVIDERS: PCP Family Medicine; Referring Provider Orthopaedic Surgery Foot and Ankle Surgery; Visit Provider Orthopaedic Surgery Foot and Ankle Surgery
DX: S52.592A Other fractures of lower end of left radius, initial encounter for closed fracture (principal)
CPT/HCPCS: 97110; 97140; 97162; 97530

== ENCOUNTER 2022-09-09 13:45 | Outpatient (RCR) | payer OTHER, MEDICAID, SELFPAY ==
--- NOTE | 2022-07-20 16:16 | PT.OIE ---
Current Diagnoses Unilateral primary osteoarthritis, right hip (07/20/22) Stiffness of right hip, not elsewhere classified (07/20/22) Difficulty in walking, not elsewhere classified (07/20/22) Visit Care Team Role Provider Type Haley Pereyra MD Attending Provider Non-Staff Family Provider Primary Care Provider Referring Provider Specialty: Family Practice Address: [facility] [address] , [place], [address] Email: Physical Therapy Initial Evaluation PT-OP-A Visit Information Start: 07/20/22 14:51 Freq: Status: Active Protocol: Document 07/20/22 14:51 ES (Rec: 07/20/22 16:15 ES [id number]) Out-Patient Physical Therapy Visit Information Visit Information Visit Type Initial Evaluation Visit Start Time 14:50 Visit Stop Time 15:45 Total Visit Minutes 55 Visit Number 03/12 PT-OP-B Current Condition Start: 07/20/22 14:51 Freq: Status: Active Protocol: Document 07/20/22 14:51 ES (Rec: 07/20/22 16:15 ES [id number]) Current Condition History of Current Condition Onset Date 5 years ago Current Complaints R hip pain History of Current Condition Patient reported she has OA in her hip. Has been having problems with her hip for about 5 years. Has a hx of OA in her family and multiple family members have had joint replacements. Has had back pain as well for many years. Has a hx of L1 fracture. Doesn 't hurt as much now as it used to, but bothers her when doing housework. Has not done any PT for her back or hip before. Prior Treatments and Tests Had x-rays of the hip and MRI of her back about 2 years ago. Treatment Goals Patient/Caregiver Goals To be able to take her dog for walks around the neighborhood . PT-OP-C Subjective Start: 07/20/22 14:51 Freq: Status: Active Protocol: Document 07/20/22 14:51 ES (Rec: 07/20/22 16:15 ES [id number]) Patient Questionnaires Lower Extremity Functional Scale LEFS Score 41 LEFS Impairment 40 to 59% Impaired (Score 32- 47) OP-PT Pain Assessment Location R hip Pain Location Details Entire R hip, especially the groin Description Aching,Sharp Description- Other Worst 6/10 Frequency Constant Radiating Location R anterior thigh - feels tired Pain Aggravating Factors Changing Position,Walking, Stair Climbing Other Pain Aggravating Factors Inactivity Pain Alleviating Factors Heat,Medication Other Pain Alleviating Factors Ibuprofen helps when she takes it PT-OP-G Mobility & Gait Start: 07/20/22 14:51 Freq: Status: Active Protocol: Document 07/20/22 14:51 ES (Rec: 07/20/22 16:15 ES [id number]) OP Gait Assessment Factors Limiting Gait Function Factors Limiting Gait Function Decreased Strength,Pain Comments Gait Comments Antalgic gait with gluteal lurch on R side, decreased stride length, decreased stance time on R, R hip MR/ adduction noted. PT-OP-J Posture/Palpation/Skin Start: 07/20/22 14:51 Freq: Status: Active Protocol: Document 07/20/22 14:51 ES (Rec: 07/20/22 16:15 ES [id number]) Posture Evaluation Position Standing Evaluation View Posterior Weight Distribution Weight Shifted Left,Decreased Wt.Bear on (R) Hip Posture (R) Flexed,(R) Internally Rotated,(R) Adducted Knee Posture (R) Genu Valgus PT-OP-K Range of Motion Start: 07/20/22 14:51 Freq: Status: Active Protocol: Document 07/20/22 14:51 ES (Rec: 07/20/22 16:15 ES [id number]) Hip Goniometric Range of Motion Hip Left Passive Hip ROM WFL Yes Testing Position Supine Flexion w/Knee Flexed 130 Extension 0 Abduction 25 Internal Rotation 35 External Rotation 65 Right Passive Flexion w/Knee Flexed 115 Abduction 12 Internal Rotation 12 External Rotation 55 Comments Lacking 5 degrees extension PT-OP-M Strength Start: 07/20/22 14:51 Freq: Status: Active Protocol: Document 07/20/22 14:51 ES (Rec: 07/20/22 16:15 ES [id number]) Hip Strength Hip Manual Muscle Testing Left Flexion (L2) 5 Normal Extension (S1) 5 Normal Abduction 3+ Fair+ Adduction 4 Good External Rotation 4- Good- Internal Rotation 4 Good Right Flexion (L2) 4+ Good+ Extension (S1) 4+ Good+ Abduction 3- Fair- Adduction 4- Good- External Rotation 3- Fair- Internal Rotation 3+ Fair+ PT-OP-Q Treatments Start: 07/20/22 14:51 Freq: Status: Active Protocol: Document 07/20/22 14:51 ES (Rec: 07/20/22 16:15 ES [id number]) Therapeutic Exercises Supine Exercises 1 Supine Exercise Name Long axis leg traction Side right Equipment Used purple band Reps/Minutes x2 minutes Comments Instructed for home, band provided PT-OP-T Assessment and Plan Start: 07/20/22 14:51 Freq: Status: Active Protocol: Document 07/20/22 14:51 ES (Rec: 07/20/22 16:15 ES [id number]) Physical Therapy Assessment Rehab Potential Rehabilitation Potential Good Evaluation Complexity Number of Personal Factors/Comorbidities 0 Number of Body Systems Impaired 1-2 Clinical Presentation at Evaluation Stable Impairments Impairments Functional Activities, Functional Mobility,Gait,Pain, ROM,Strength Goals Four Impairment Function Residential Substance Abuse Counselor Goal (LTG) Patient will have an increase in LEFS score to 50 indicating clinically significant change . LTG Duration 8 weeks Two Impairment Function/gait Residential Substance Abuse Counselor Goal (LTG) Patient will be able to walk 4 blocks with 3/10 pain at worst. LTG Duration 8 weeks One Impairment ROM Short Term Goal (STG) Patient will increase R hip ROM by 5 degrees all directions. STG Duration 4 weeks Three Impairment HEP Fdc Goal (LTG) Patient will be indep with HEP for ROM and strength. LTG Duration 8 weeks Assessment Summary Assessment Patient is a 62 year old female who presents with R hip pain. She demonstrates limited and painful R hip ROM and decreased R hip strength especially in glute min, glute med, and deep rotators. She is functionally limited in her ability to walk and go up/ down stairs. She reported decreased pain after long axis distraction this visit. Patient will benefit from skilled PT to address the listed problems in order to reduce pain and increase function for improved quality of life and participation in normal daily activity. Physical Therapy Plan Frequency and Duration Frequency of Treatment 2x/Week Duration of treatment (weeks) 8 Plan of Care Start Date 07/20/22 Plan of Care End Date 09/14/22 Therapeutic Interventions Therapeutic Interventions Gait Training,Home Exercise Program,Joint Mobilizations, Manual Therapy,Neuromuscular Re-education,Patient/Caregiver Education,Self-Care/Home Management,Soft Tissue Mobilization,Taping, Therapeutic Activities, Therapeutic Exercises Modalities Electric Stimulation,Hot Packs Next Visit Focus/Plan Next Note Type Treatment Note Next Visit Plan Manual therapy/joint mobilization, instruct in home stretching program, initiate hip strengthening as indicated .
--- NOTE | 2022-07-20 16:16 | PT.OPPOC ---
Physical, Occupational & Speech Therapy At [facility] Current Diagnoses Unilateral primary osteoarthritis, right hip (07/20/22) Stiffness of right hip, not elsewhere classified (07/20/22) Difficulty in walking, not elsewhere classified (07/20/22) Visit Care Team Role Provider Type Haley Pereyra MD Attending Provider Non-Staff Family Provider Primary Care Provider Referring Provider Specialty: Family Practice Address: [address] [place] [address] [address], [place], [address] Email: Plan Of Care PT-OP-T Assessment and Plan Start: 07/20/22 14:51 Freq: Status: Active Protocol: Document 07/20/22 14:51 ES (Rec: 07/20/22 16:15 ES [id number]) Physical Therapy Assessment Rehab Potential Rehabilitation Potential Good Evaluation Complexity Number of Personal Factors/Comorbidities 0 Number of Body Systems Impaired 1-2 Clinical Presentation at Evaluation Stable Impairments Impairments Functional Activities, Functional Mobility,Gait,Pain, ROM,Strength Goals Four Impairment Function Prison Goal (LTG) Patient will have an increase in LEFS score to 50 indicating clinically significant change . LTG Duration 8 weeks Two Impairment Function/gait Manufacturing Engineering Technologist Goal (LTG) Patient will be able to walk 4 blocks with 3/10 pain at worst. LTG Duration 8 weeks One Impairment ROM Short Term Goal (STG) Patient will increase R hip ROM by 5 degrees all directions. STG Duration 4 weeks Three Impairment HEP Prison Goal (LTG) Patient will be indep with HEP for ROM and strength. LTG Duration 8 weeks Assessment Summary Assessment Patient is a 62 year old female who presents with R hip pain. She demonstrates limited and painful R hip ROM and decreased R hip strength especially in glute min, glute med, and deep rotators. She is functionally limited in her ability to walk and go up/ down stairs. She reported decreased pain after long axis distraction this visit. Patient will benefit from skilled PT to address the listed problems in order to reduce pain and increase function for improved quality of life and participation in normal daily activity. Physical Therapy Plan Frequency and Duration Frequency of Treatment 2x/Week Duration of treatment (weeks) 8 Plan of Care Start Date 07/20/22 Plan of Care End Date 09/14/22 Therapeutic Interventions Therapeutic Interventions Gait Training,Home Exercise Program,Joint Mobilizations, Manual Therapy,Neuromuscular Re-education,Patient/Caregiver Education,Self-Care/Home Management,Soft Tissue Mobilization,Taping, Therapeutic Activities, Therapeutic Exercises Modalities Electric Stimulation,Hot Packs Next Visit Focus/Plan Next Note Type Treatment Note Next Visit Plan Manual therapy/joint mobilization, instruct in home stretching program, initiate hip strengthening as indicated . Plan of Care Dates Plan of Care Start Date 07/20/22 Plan of Care End Date 09/14/22 Electronically Signed by: Beth Ortiz, PT 07/20/22 5424 If you are in agreement with this Plan of Care, please return a signed and dated copy. I have reviewed this Plan of Care and certify that the skilled therapy services above are required to meet the patient?s needs. Physician Signature Date Printed Name and Credentials Clinical Instructor Signature Printed Name and Credentials
--- NOTE | 2022-08-03 16:42 | PT.OTN ---
Current Diagnoses Unilateral primary osteoarthritis, right hip (08/03/22) Stiffness of right hip, not elsewhere classified (08/03/22) Difficulty in walking, not elsewhere classified (08/03/22) Physical Therapy Treatment Note PT-OP-A Visit Information Start: 07/20/22 14:51 Freq: Status: Active Protocol: Document 08/03/22 14:45 ES (Rec: 08/03/22 15:38 ES [id number]) Out-Patient Physical Therapy Visit Information Visit Information Visit Type Treatment Note Visit Start Time 14:45 Visit Stop Time 15:30 Total Visit Minutes 45 Visit Number 2/ Number of NURSING HOME SOCIAL WORKER Visits 0 Evaluation Information Evaluation Date 07/20/22 PT-OP-B Current Condition Start: 07/20/22 14:51 Freq: Status: Active Protocol: Document 07/20/22 14:51 ES (Rec: 07/20/22 16:15 ES [id number]) Current Condition History of Current Condition Onset Date 5 years ago Current Complaints R hip pain History of Current Condition Patient reported she has OA in her hip. Has been having problems with her hip for about 5 years. Has a hx of OA in her family and multiple family members have had joint replacements. Has had back pain as well for many years. Has a hx of L1 fracture. Doesn 't hurt as much now as it used to, but bothers her when doing housework. Has not done any PT for her back or hip before. Prior Treatments and Tests Had x-rays of the hip and MRI of her back about 2 years ago. Treatment Goals Patient/Caregiver Goals To be able to take her dog for walks around the neighborhood . PT-OP-C Subjective Start: 07/20/22 14:51 Freq: Status: Active Protocol: Document 08/03/22 14:45 ES (Rec: 08/03/22 15:38 ES [id number]) OP-PT Subjective Patient Comments Patient Comments Patient reported she felt pretty good for a couple days after the last visit. Overall has been having less pain than before. Feels sometimes like her R buttock is enlarged. Patient Reported Progress Improving PT-OP-G Mobility & Gait Start: 07/20/22 14:51 Freq: Status: Active Protocol: Document 07/20/22 14:51 ES (Rec: 07/20/22 16:15 ES [id number]) OP Gait Assessment Factors Limiting Gait Function Factors Limiting Gait Function Decreased Strength,Pain Comments Gait Comments Antalgic gait with gluteal lurch on R side, decreased stride length, decreased stance time on R, R hip MR/ adduction noted. PT-OP-J Posture/Palpation/Skin Start: 07/20/22 14:51 Freq: Status: Active Protocol: Document 07/20/22 14:51 ES (Rec: 07/20/22 16:15 ES [id number]) Posture Evaluation Position Standing Evaluation View Posterior Weight Distribution Weight Shifted Left,Decreased Wt.Bear on (R) Hip Posture (R) Flexed,(R) Internally Rotated,(R) Adducted Knee Posture (R) Genu Valgus PT-OP-K Range of Motion Start: 07/20/22 14:51 Freq: Status: Active Protocol: Document 07/20/22 14:51 ES (Rec: 07/20/22 16:15 ES [id number]) Hip Goniometric Range of Motion Hip Left Passive Hip ROM WFL Yes Testing Position Supine Flexion w/Knee Flexed 130 Extension 0 Abduction 25 Internal Rotation 35 External Rotation 65 Right Passive Flexion w/Knee Flexed 115 Abduction 12 Internal Rotation 12 External Rotation 55 Comments Lacking 5 degrees extension PT-OP-M Strength Start: 07/20/22 14:51 Freq: Status: Active Protocol: Document 07/20/22 14:51 ES (Rec: 07/20/22 16:15 ES [id number]) Hip Strength Hip Manual Muscle Testing Left Flexion (L2) 5 Normal Extension (S1) 5 Normal Abduction 3+ Fair+ Adduction 4 Good External Rotation 4- Good- Internal Rotation 4 Good Right Flexion (L2) 4+ Good+ Extension (S1) 4+ Good+ Abduction 3- Fair- Adduction 4- Good- External Rotation 3- Fair- Internal Rotation 3+ Fair+ PT-OP-Q Treatments Start: 07/20/22 14:51 Freq: Status: Active Protocol: Document 08/03/22 14:45 ES (Rec: 08/03/22 15:38 ES [id number]) Cardio Equipment Recumbent Stepper (Sci-Fit) Duration (Minutes) 8 Resistance 2.5-3.0 Seat Position 10 Therapeutic Exercises Supine Exercises Hip flexor stretch Side right Reps/Minutes 2x2min Comments Off edge of bed Piriformis stretch Side right Reps/Minutes 3x60s Figure 4 stretch Side right Reps/Minutes 3x60s Comments (HEP) Manual Therapy Treatment Soft Tissue Mobilization 1 Body Location R glutes, anterior glute med, deep rotators, QL Mobilization Type Myofascial Release,Sustained Pressure Intensity/Depth Moderate Body Position Sidelying Joint Mobilizations 1 Joint Long axis traction Direction Caudal Grade III Body Position Supine Reps/Duration 3x60s PT-OP-T Assessment and Plan Start: 07/20/22 14:51 Freq: Status: Active Protocol: Document 08/03/22 14:45 ES (Rec: 08/03/22 15:38 ES [id number]) Physical Therapy Assessment Goals Four Impairment Function Ground Water Contractor Goal (LTG) Patient will have an increase in LEFS score to 50 indicating clinically significant change . LTG Duration 8 weeks Two Impairment Function/gait Longterm Goal (LTG) Patient will be able to walk 4 blocks with 3/10 pain at worst. LTG Duration 8 weeks One Impairment ROM Short Term Goal (STG) Patient will increase R hip ROM by 5 degrees all directions. STG Duration 4 weeks Three Impairment HEP Ground Water Contractor Goal (LTG) Patient will be indep with HEP for ROM and strength. LTG Duration 8 weeks Assessment Summary Assessment Patient tolerated treatment without increased pain, and reported decreased pain at end of treatment. She continues to have impaired gait pattern due to decreased R hip extension. She is most tight into extension. She will benefit from further therapy to improve R hip ROM and strength to improve her ability to stand and walk. Physical Therapy Plan Next Visit Focus/Plan Next Note Type Treatment Note Next Visit Plan Assess response to manual therapy. Review new HEP stretches. Add hip extension and abduction strengthening as tolerated.
--- NOTE | 2022-08-06 17:13 | PT.OTN ---
Current Diagnoses Unilateral primary osteoarthritis, right hip (08/06/22) Stiffness of right hip, not elsewhere classified (08/06/22) Difficulty in walking, not elsewhere classified (08/06/22) Physical Therapy Treatment Note PT-OP-A Visit Information Start: 07/20/22 14:51 Freq: Status: Active Protocol: Document 08/06/22 15:38 SW (Rec: 08/06/22 17:11 SW [id number]) Out-Patient Physical Therapy Visit Information Visit Information Visit Type Treatment Note Visit Start Time 15:35 Visit Stop Time 16:15 Total Visit Minutes 40 Visit Number 05/10 PT-OP-B Current Condition Start: 07/20/22 14:51 Freq: Status: Active Protocol: Document 07/20/22 14:51 ES (Rec: 07/20/22 16:15 ES [id number]) Current Condition History of Current Condition Onset Date 5 years ago Current Complaints R hip pain History of Current Condition Patient reported she has OA in her hip. Has been having problems with her hip for about 5 years. Has a hx of OA in her family and multiple family members have had joint replacements. Has had back pain as well for many years. Has a hx of L1 fracture. Doesn 't hurt as much now as it used to, but bothers her when doing housework. Has not done any PT for her back or hip before. Prior Treatments and Tests Had x-rays of the hip and MRI of her back about 2 years ago. Treatment Goals Patient/Caregiver Goals To be able to take her dog for walks around the neighborhood . PT-OP-C Subjective Start: 07/20/22 14:51 Freq: Status: Active Protocol: Document 08/06/22 15:38 SW (Rec: 08/06/22 17:13 SW [id number]) OP-PT Subjective Patient Comments Patient Comments Patient reports decreased pain since starting PT. PT-OP-G Mobility & Gait Start: 07/20/22 14:51 Freq: Status: Active Protocol: Document 07/20/22 14:51 ES (Rec: 07/20/22 16:15 ES [id number]) OP Gait Assessment Factors Limiting Gait Function Factors Limiting Gait Function Decreased Strength,Pain Comments Gait Comments Antalgic gait with gluteal lurch on R side, decreased stride length, decreased stance time on R, R hip MR/ adduction noted. PT-OP-J Posture/Palpation/Skin Start: 07/20/22 14:51 Freq: Status: Active Protocol: Document 07/20/22 14:51 ES (Rec: 07/20/22 16:15 ES [id number]) Posture Evaluation Position Standing Evaluation View Posterior Weight Distribution Weight Shifted Left,Decreased Wt.Bear on (R) Hip Posture (R) Flexed,(R) Internally Rotated,(R) Adducted Knee Posture (R) Genu Valgus PT-OP-K Range of Motion Start: 07/20/22 14:51 Freq: Status: Active Protocol: Document 07/20/22 14:51 ES (Rec: 07/20/22 16:15 ES [id number]) Hip Goniometric Range of Motion Hip Left Passive Hip ROM WFL Yes Testing Position Supine Flexion w/Knee Flexed 130 Extension 0 Abduction 25 Internal Rotation 35 External Rotation 65 Right Passive Flexion w/Knee Flexed 115 Abduction 12 Internal Rotation 12 External Rotation 55 Comments Lacking 5 degrees extension PT-OP-M Strength Start: 07/20/22 14:51 Freq: Status: Active Protocol: Document 07/20/22 14:51 ES (Rec: 07/20/22 16:15 ES [id number]) Hip Strength Hip Manual Muscle Testing Left Flexion (L2) 5 Normal Extension (S1) 5 Normal Abduction 3+ Fair+ Adduction 4 Good External Rotation 4- Good- Internal Rotation 4 Good Right Flexion (L2) 4+ Good+ Extension (S1) 4+ Good+ Abduction 3- Fair- Adduction 4- Good- External Rotation 3- Fair- Internal Rotation 3+ Fair+ PT-OP-Q Treatments Start: 07/20/22 14:51 Freq: Status: Active Protocol: Document 08/06/22 15:38 SW (Rec: 08/06/22 17:11 SW [id number]) Cardio Equipment Recumbent Stepper (Sci-Fit) Duration (Minutes) 10 Resistance 3 Seat Position 10 Therapeutic Exercises Supine Exercises Hip flexor stretch Side right Reps/Minutes 2x2min Comments Off edge of bed Piriformis stretch Side right Reps/Minutes 3x60s Figure 4 stretch Side right Reps/Minutes 3x60s Comments (HEP) Prone Exercises Hip Extension Prone Exercise Name Hip Ext Strength Side right Reps/Minutes 2x10 Comments (HEP) verbal and tactile cues for compensatory LB movement Sidelying Exercises Clamshell Sidelying Exercise Name Hip abd strength Side right Reps/Minutes 2x10 Comments (HEP) Tactile/verbal cues for compensatory movement Manual Therapy Treatment Soft Tissue Mobilization 1 Body Location R glutes, anterior glute med, deep rotators, QL Mobilization Type Myofascial Release,Sustained Pressure Intensity/Depth Moderate Body Position Sidelying Joint Mobilizations 1 Joint Long axis traction Direction Caudal Grade III Body Position Supine Reps/Duration 3x60s Comments good feedback Manual Techniques PNF hip ext stretch Body Location R Hip Body Position Sidelying Reps/Duration 3 x 30 Comments Tactile feedback for pelvic alignment PT-OP-T Assessment and Plan Start: 07/20/22 14:51 Freq: Status: Active Protocol: Document 08/06/22 15:38 SW (Rec: 08/06/22 17:11 SW [id number]) Physical Therapy Assessment Goals Four Impairment Function [facility] Goal (LTG) Patient will have an increase in LEFS score to 50 indicating clinically significant change . LTG Duration 8 weeks Two Impairment Function/gait [facility] Goal (LTG) Patient will be able to walk 4 blocks with 3/10 pain at worst. LTG Duration 8 weeks One Impairment ROM Short Term Goal (STG) Patient will increase R hip ROM by 5 degrees all directions. STG Duration 4 weeks Three Impairment HEP Impairment Not formally assessed, but pt has difficulty moving her L hand/wrist against gravity. School Library Media Specialist Goal (LTG) Patient will be indep with HEP for ROM and strength. LTG Duration 8 weeks Assessment Summary Assessment Pt tolerated treatment well, reporting decreased pain and good response to manual. Started hip strengthening progression today, cueing required for form improved with repetition, added to HEP HO given, recommend following up next session on execution and tolerance. Physical Therapy Plan Frequency and Duration Frequency of Treatment 2x/Week Duration of treatment (weeks) 8 Plan of Care Start Date 07/20/22 Plan of Care End Date 09/14/22 Therapeutic Interventions Therapeutic Interventions Gait Training,Home Exercise Program,Joint Mobilizations, Manual Therapy,Neuromuscular Re-education,Patient/Caregiver Education,Self-Care/Home Management,Soft Tissue Mobilization,Taping, Therapeutic Activities, Therapeutic Exercises Modalities Electric Stimulation,Hot Packs Next Visit Focus/Plan Next Note Type Treatment Note Next Visit Plan Assess response to manual therapy. Review new HEP stretches. Add hip extension and abduction strengthening as tolerated.
--- NOTE | 2022-08-11 13:46 | PT.OTN ---
Current Diagnoses Unilateral primary osteoarthritis, right hip (08/11/22) Stiffness of right hip, not elsewhere classified (08/11/22) Difficulty in walking, not elsewhere classified (08/11/22) Physical Therapy Treatment Note PT-OP-A Visit Information Start: 07/20/22 14:51 Freq: Status: Active Protocol: Document 08/11/22 13:01 ES (Rec: 08/11/22 13:45 ES [id number]) Out-Patient Physical Therapy Visit Information Visit Information Visit Type Treatment Note Visit Start Time 13:03 Visit Stop Time 13:43 Total Visit Minutes 40 Visit Number 4 Number of UNDERPRESSER HAND Visits 0 Evaluation Information Evaluation Date 07/20/22 PT-OP-B Current Condition Start: 07/20/22 14:51 Freq: Status: Active Protocol: Document 07/20/22 14:51 ES (Rec: 07/20/22 16:15 ES [id number]) Current Condition History of Current Condition Onset Date 5 years ago Current Complaints R hip pain History of Current Condition Patient reported she has OA in her hip. Has been having problems with her hip for about 5 years. Has a hx of OA in her family and multiple family members have had joint replacements. Has had back pain as well for many years. Has a hx of L1 fracture. Doesn 't hurt as much now as it used to, but bothers her when doing housework. Has not done any PT for her back or hip before. Prior Treatments and Tests Had x-rays of the hip and MRI of her back about 2 years ago. Treatment Goals Patient/Caregiver Goals To be able to take her dog for walks around the neighborhood . PT-OP-C Subjective Start: 07/20/22 14:51 Freq: Status: Active Protocol: Document 08/11/22 13:01 ES (Rec: 08/11/22 13:45 ES [id number]) OP-PT Subjective Patient Comments Patient Comments Patient reported she always feels really good after PT. Did a lot of yardwork yesterday and needed to take an ibuprofen. Not having pain today. Hasn't done the new exercises at home yet. Patient Reported Progress Improving PT-OP-G Mobility & Gait Start: 07/20/22 14:51 Freq: Status: Active Protocol: Document 07/20/22 14:51 ES (Rec: 07/20/22 16:15 ES [id number]) OP Gait Assessment Factors Limiting Gait Function Factors Limiting Gait Function Decreased Strength,Pain Comments Gait Comments Antalgic gait with gluteal lurch on R side, decreased stride length, decreased stance time on R, R hip MR/ adduction noted. PT-OP-J Posture/Palpation/Skin Start: 07/20/22 14:51 Freq: Status: Active Protocol: Document 07/20/22 14:51 ES (Rec: 07/20/22 16:15 ES [id number]) Posture Evaluation Position Standing Evaluation View Posterior Weight Distribution Weight Shifted Left,Decreased Wt.Bear on (R) Hip Posture (R) Flexed,(R) Internally Rotated,(R) Adducted Knee Posture (R) Genu Valgus PT-OP-K Range of Motion Start: 07/20/22 14:51 Freq: Status: Active Protocol: Document 07/20/22 14:51 ES (Rec: 07/20/22 16:15 ES [id number]) Hip Goniometric Range of Motion Hip Left Passive Hip ROM WFL Yes Testing Position Supine Flexion w/Knee Flexed 130 Extension 0 Abduction 25 Internal Rotation 35 External Rotation 65 Right Passive Flexion w/Knee Flexed 115 Abduction 12 Internal Rotation 12 External Rotation 55 Comments Lacking 5 degrees extension PT-OP-M Strength Start: 07/20/22 14:51 Freq: Status: Active Protocol: Document 07/20/22 14:51 ES (Rec: 07/20/22 16:15 ES [id number]) Hip Strength Hip Manual Muscle Testing Left Flexion (L2) 5 Normal Extension (S1) 5 Normal Abduction 3+ Fair+ Adduction 4 Good External Rotation 4- Good- Internal Rotation 4 Good Right Flexion (L2) 4+ Good+ Extension (S1) 4+ Good+ Abduction 3- Fair- Adduction 4- Good- External Rotation 3- Fair- Internal Rotation 3+ Fair+ PT-OP-Q Treatments Start: 07/20/22 14:51 Freq: Status: Active Protocol: Document 08/11/22 13:01 ES (Rec: 08/11/22 13:45 ES [id number]) Cardio Equipment Recumbent Stepper (Sci-Fit) Duration (Minutes) 6 Resistance 3.5 Seat Position 9 Other (1 mile) Therapeutic Exercises Supine Exercises Bridge Reps/Minutes 2x10 Comments Instructed for home, replace prone hip extension with bridge Hip flexor stretch Side right Reps/Minutes 1x1min Comments Off edge of bed Sidelying Exercises Clamshell Sidelying Exercise Name Hip abd strength Side right Reps/Minutes 2x10 Comments (HEP) Tactile/verbal cues for compensatory movement Standing Exercises Sidestepping Side bilateral Resistance L1 band above knees Reps/Minutes 3x8 ea side Comments cued for increased hip ER vs IR Manual Therapy Treatment Soft Tissue Mobilization 1 Body Location R psoas, hip flexors Mobilization Type Myofascial Release,Sustained Pressure Intensity/Depth Moderate Body Position Supine Joint Mobilizations 1 Joint Long axis traction Direction Caudal Grade III Body Position Supine Reps/Duration 3x60s Manual Techniques PNF hip ext stretch Type Manual hip extension stretch with knee flexion Body Position Sidelying Comments tack and stretch PT-OP-T Assessment and Plan Start: 07/20/22 14:51 Freq: Status: Active Protocol: Document 08/11/22 13:01 ES (Rec: 08/11/22 13:45 ES [id number]) Physical Therapy Assessment Goals Four Impairment Function Longterm Goal (LTG) Patient will have an increase in LEFS score to 50 indicating clinically significant change . LTG Duration 8 weeks Two Impairment Function/gait Treasury Accountant Goal (LTG) Patient will be able to walk 4 blocks with 3/10 pain at worst. LTG Duration 8 weeks One Impairment ROM Short Term Goal (STG) Patient will increase R hip ROM by 5 degrees all directions. STG Duration 4 weeks Three Impairment HEP Treasury Accountant Goal (LTG) Patient will be indep with HEP for ROM and strength. LTG Duration 8 weeks Assessment Summary Assessment Patient had increased pain after sidestepping, so did not add to HEP. Replaced prone hip extension with bridges due to limited ROM to avoid aggravating low back. She demonstrated improved hip extension ROM compared to previous visits. Physical Therapy Plan Next Visit Focus/Plan Next Note Type Treatment Note Next Visit Plan Progress hip extension and abduction mobility and strength as tolerated. May tolerate non-WB exercises better for now.
--- NOTE | 2022-08-13 16:14 | PT.OTN ---
Current Diagnoses Unilateral primary osteoarthritis, right hip (08/13/22) Stiffness of right hip, not elsewhere classified (08/13/22) Difficulty in walking, not elsewhere classified (08/13/22) Physical Therapy Treatment Note PT-OP-A Visit Information Start: 07/20/22 14:51 Freq: Status: Active Protocol: Document 08/13/22 14:39 SW (Rec: 08/13/22 16:10 SW [id number]) Out-Patient Physical Therapy Visit Information Visit Information Visit Type Treatment Note Visit Start Time 14:45 Visit Stop Time 15:45 Total Visit Minutes 60 Visit Number 07/10 Number of LEAD APPLICATIONS DEVELOPER Visits 1 PT-OP-B Current Condition Start: 07/20/22 14:51 Freq: Status: Active Protocol: Document 07/20/22 14:51 ES (Rec: 07/20/22 16:15 ES [id number]) Current Condition History of Current Condition Onset Date 5 years ago Current Complaints R hip pain History of Current Condition Patient reported she has OA in her hip. Has been having problems with her hip for about 5 years. Has a hx of OA in her family and multiple family members have had joint replacements. Has had back pain as well for many years. Has a hx of L1 fracture. Doesn 't hurt as much now as it used to, but bothers her when doing housework. Has not done any PT for her back or hip before. Prior Treatments and Tests Had x-rays of the hip and MRI of her back about 2 years ago. Treatment Goals Patient/Caregiver Goals To be able to take her dog for walks around the neighborhood . PT-OP-C Subjective Start: 07/20/22 14:51 Freq: Status: Active Protocol: Document 08/13/22 14:39 SW (Rec: 08/13/22 16:10 SW [id number]) OP-PT Subjective Patient Comments Patient Comments Pt reports she is sore today, doing a lot of gardening. She notes she felt good after side stepping last session, it was painful when performing, but after session she was ok. PT-OP-G Mobility & Gait Start: 07/20/22 14:51 Freq: Status: Active Protocol: Document 07/20/22 14:51 ES (Rec: 07/20/22 16:15 ES [id number]) OP Gait Assessment Factors Limiting Gait Function Factors Limiting Gait Function Decreased Strength,Pain Comments Gait Comments Antalgic gait with gluteal lurch on R side, decreased stride length, decreased stance time on R, R hip MR/ adduction noted. PT-OP-J Posture/Palpation/Skin Start: 07/20/22 14:51 Freq: Status: Active Protocol: Document 07/20/22 14:51 ES (Rec: 07/20/22 16:15 ES [id number]) Posture Evaluation Position Standing Evaluation View Posterior Weight Distribution Weight Shifted Left,Decreased Wt.Bear on (R) Hip Posture (R) Flexed,(R) Internally Rotated,(R) Adducted Knee Posture (R) Genu Valgus PT-OP-K Range of Motion Start: 07/20/22 14:51 Freq: Status: Active Protocol: Document 07/20/22 14:51 ES (Rec: 07/20/22 16:15 ES [id number]) Hip Goniometric Range of Motion Hip Left Passive Hip ROM WFL Yes Testing Position Supine Flexion w/Knee Flexed 130 Extension 0 Abduction 25 Internal Rotation 35 External Rotation 65 Right Passive Flexion w/Knee Flexed 115 Abduction 12 Internal Rotation 12 External Rotation 55 Comments Lacking 5 degrees extension PT-OP-M Strength Start: 07/20/22 14:51 Freq: Status: Active Protocol: Document 07/20/22 14:51 ES (Rec: 07/20/22 16:15 ES [id number]) Hip Strength Hip Manual Muscle Testing Left Flexion (L2) 5 Normal Extension (S1) 5 Normal Abduction 3+ Fair+ Adduction 4 Good External Rotation 4- Good- Internal Rotation 4 Good Right Flexion (L2) 4+ Good+ Extension (S1) 4+ Good+ Abduction 3- Fair- Adduction 4- Good- External Rotation 3- Fair- Internal Rotation 3+ Fair+ PT-OP-Q Treatments Start: 07/20/22 14:51 Freq: Status: Active Protocol: Document 08/13/22 14:39 SW (Rec: 08/13/22 16:10 SW [id number]) Cardio Equipment Recumbent Stepper (Sci-Fit) Duration (Minutes) 6 Resistance 3.5 Seat Position 9 Other (1 mile) Therapeutic Exercises Supine Exercises Bridge Reps/Minutes 2x10 Comments Instructed for home, replace prone hip extension with bridge Hip flexor stretch Side right Reps/Minutes 1x1min Comments Off edge of bed Sidelying Exercises Hip Abd Sidelying Exercise Name Hip abd strength Side right Reps/Minutes x 10 Clamshell Sidelying Exercise Name Hip abd strength Side right Reps/Minutes 2x10 Comments (HEP) Tactile/verbal cues for compensatory movement Standing Exercises Hip Abd/Ext Standing Exercise Name Abd/ext Resistance 2# Equipment Used @ counter Reps/Minutes x10 each Comments to reinforce hip mobs Manual Therapy Treatment Soft Tissue Mobilization 1 Body Location R psoas, hip flexors, glutes Mobilization Type Myofascial Release,Sustained Pressure Intensity/Depth Moderate Body Position Sidelying Joint Mobilizations R Hip Joint Hip Direction Posterior, Lateral,medial Grade III Body Position Supine Reps/Duration 2 x 30 1 Joint Long axis traction Direction Caudal Grade III Body Position Supine Reps/Duration 3x60s Manual Techniques PNF hip ext stretch Type Manual hip extension stretch with knee flexion Body Position Sidelying Comments Tactile cues for form PT-OP-R Modalities Start: 07/20/22 14:51 Freq: Status: Active Protocol: Document 08/13/22 14:39 SW (Rec: 08/13/22 16:13 [id number]) Hot Pack/Cold Pack Treatment Hot Pack Patient Position Sidelying Treatment Duration (minutes) 15 Patient Tolerance Fair Comments Lumbar pack over R hip pillow between knees, sctot within reach PT-OP-T Assessment and Plan Start: 07/20/22 14:51 Freq: Status: Active Protocol: Document 08/13/22 14:39 SW (Rec: 08/13/22 16:10 [id number]) Physical Therapy Assessment Goals Four Impairment Function Pizza Maker Goal (LTG) Patient will have an increase in LEFS score to 50 indicating clinically significant change . LTG Duration 8 weeks Two Impairment Function/gait Pizza Maker Goal (LTG) Patient will be able to walk 4 blocks with 3/10 pain at worst. LTG Duration 8 weeks One Impairment ROM Short Term Goal (STG) Patient will increase R hip ROM by 5 degrees all directions. STG Duration 4 weeks Three Impairment HEP Impairment Not formally assessed, but pt has difficulty moving her L hand/wrist against gravity. Pizza Maker Goal (LTG) Patient will be indep with HEP for ROM and strength. LTG Duration 8 weeks Assessment Summary Assessment Trialed joint mobs today, good response, reinfored with standing light weight strength to not aggravate hip pn, tolerated well. Patient was in pain today from gardening. Concentrated on non weight bearing exercises and manual therapy due to pain. Trialed heat, pt tolerated well, decreased slightly but pn still present post. Plan to assess pt pn next session and consider isometrics. Physical Therapy Plan Frequency and Duration Frequency of Treatment 2x/Week Duration of treatment (weeks) 8 Plan of Care Start Date 07/20/22 Plan of Care End Date 09/14/22 Therapeutic Interventions Therapeutic Interventions Gait Training,Home Exercise Program,Joint Mobilizations, Manual Therapy,Neuromuscular Re-education,Patient/Caregiver Education,Self-Care/Home Management,Soft Tissue Mobilization,Taping, Therapeutic Activities, Therapeutic Exercises Modalities Electric Stimulation,Hot Packs Next Visit Focus/Plan Next Note Type Treatment Note Next Visit Plan Progress hip extension and abduction mobility and strength as tolerated. May tolerate non-WB exercises better for now.
--- NOTE | 2022-08-17 14:43 | PT.OTN ---
Current Diagnoses Unilateral primary osteoarthritis, right hip (08/17/22) Stiffness of right hip, not elsewhere classified (08/17/22) Difficulty in walking, not elsewhere classified (08/17/22) Physical Therapy Treatment Note PT-OP-A Visit Information Start: 07/20/22 14:51 Freq: Status: Active Protocol: Document 08/17/22 13:33 ES (Rec: 08/17/22 14:42 ES [id number]) Out-Patient Physical Therapy Visit Information Visit Information Visit Type Progress Note Visit Start Time 13:44 Visit Stop Time 14:33 Total Visit Minutes 49 Visit Number 6 Number of SUPERVISOR INSTRUMENT MAINTENANCE Visits 0 PT-OP-B Current Condition Start: 07/20/22 14:51 Freq: Status: Active Protocol: Document 07/20/22 14:51 ES (Rec: 07/20/22 16:15 ES [id number]) Current Condition History of Current Condition Onset Date 5 years ago Current Complaints R hip pain History of Current Condition Patient reported she has OA in her hip. Has been having problems with her hip for about 5 years. Has a hx of OA in her family and multiple family members have had joint replacements. Has had back pain as well for many years. Has a hx of L1 fracture. Doesn 't hurt as much now as it used to, but bothers her when doing housework. Has not done any PT for her back or hip before. Prior Treatments and Tests Had x-rays of the hip and MRI of her back about 2 years ago. Treatment Goals Patient/Caregiver Goals To be able to take her dog for walks around the neighborhood . PT-OP-C Subjective Start: 07/20/22 14:51 Freq: Status: Active Protocol: Document 08/17/22 13:33 ES (Rec: 08/17/22 14:42 ES [id number]) OP-PT Subjective Patient Comments Patient Comments Patient reported that her hip pain comes and goes, sometimes is better and sometimes it's worse. Reported that she has been walking a lot; walked around a lot over the weekend. Has a lot of back and hip pain when standing up getting out of bed in the morning. States she likes coming to therapy and her hip feels good when she's done. Feels like she has gained some motion in her hip since starting PT. Is thinking she might have to have a hip replacement at some point. Patient Reported Progress Same Patient Questionnaires Lower Extremity Functional Scale LEFS Score 42 LEFS Impairment 40 to 59% Impaired (Score 32- 47) OP-PT Pain Assessment Location R hip Pain Location Details R hip, buttock, groin Scale Used Worst 7/10, best 5/10, avg 6/ 10 PT-OP-G Mobility & Gait Start: 07/20/22 14:51 Freq: Status: Active Protocol: Document 07/20/22 14:51 ES (Rec: 07/20/22 16:15 ES [id number]) OP Gait Assessment Factors Limiting Gait Function Factors Limiting Gait Function Decreased Strength,Pain Comments Gait Comments Antalgic gait with gluteal lurch on R side, decreased stride length, decreased stance time on R, R hip MR/ adduction noted. PT-OP-J Posture/Palpation/Skin Start: 07/20/22 14:51 Freq: Status: Active Protocol: Document 07/20/22 14:51 ES (Rec: 07/20/22 16:15 ES [id number]) Posture Evaluation Position Standing Evaluation View Posterior Weight Distribution Weight Shifted Left,Decreased Wt.Bear on (R) Hip Posture (R) Flexed,(R) Internally Rotated,(R) Adducted Knee Posture (R) Genu Valgus PT-OP-K Range of Motion Start: 07/20/22 14:51 Freq: Status: Active Protocol: Document 08/17/22 13:33 ES (Rec: 08/17/22 14:42 ES [id number]) Hip Goniometric Range of Motion Hip Right Passive Flexion w/Knee Flexed 115 Extension 0 Abduction 18 Internal Rotation 22 External Rotation 55 PT-OP-M Strength Start: 07/20/22 14:51 Freq: Status: Active Protocol: Document 08/17/22 13:33 ES (Rec: 08/17/22 14:42 ES [id number]) Hip Strength Hip Manual Muscle Testing Right Flexion (L2) 5 Normal Extension (S1) 4+ Good+ Abduction 3 Fair External Rotation 4 Good Internal Rotation 4 Good PT-OP-Q Treatments Start: 07/20/22 14:51 Freq: Status: Active Protocol: Document 08/17/22 13:33 ES (Rec: 08/17/22 14:42 ES [id number]) Cardio Equipment Recumbent Stepper (Sci-Fit) Duration (Minutes) 10 Resistance 3.0 Seat Position 9 Therapeutic Exercises Supine Exercises Bridge Reps/Minutes 10x5 sec Comments HEP Sidelying Exercises Clamshell Side right Resistance L1 band at knees Reps/Minutes x10 Comments HEP Standing Exercises STS Resistance L1 band above knees Reps/Minutes 2x5 Comments Cued for increased R hip ext, equal WB Hip Abd/Ext Standing Exercise Name Abd Resistance L1 band above knees Equipment Used bar Reps/Minutes 2x8 Comments HEP PT-OP-R Modalities Start: 07/20/22 14:51 Freq: Status: Active Protocol: Document 08/13/22 14:39 SW (Rec: 08/13/22 16:13 SW [id number]) Hot Pack/Cold Pack Treatment Hot Pack Patient Position Sidelying Treatment Duration (minutes) 15 Patient Tolerance Fair Comments Lumbar pack over R hip pillow between knees, scott within reach PT-OP-T Assessment and Plan Start: 07/20/22 14:51 Freq: Status: Active Protocol: Document 08/17/22 13:33 ES (Rec: 08/17/22 14:42 ES [id number]) Physical Therapy Assessment Impairments Impairments Functional Activities, Functional Mobility,Gait,Pain, ROM,Strength Goals Four Impairment Function Settlement Worker Goal (LTG) Patient will have an increase in LEFS score to 50 indicating clinically significant change . LTG Duration 8 weeks - progressing Two Impairment Function/gait Skilled Nursing Goal (LTG) Patient will be able to walk 4 blocks with 3/10 pain at worst. LTG Duration 8 weeks - no progress One Impairment ROM Short Term Goal (STG) Patient will increase R hip ROM by 5 degrees all directions. STG Duration 4 weeks - progressing Three Impairment HEP Impairment . Settlement Worker Goal (LTG) Patient will be indep with HEP for ROM and strength. LTG Duration 8 weeks - progressing Progress Towards Goals Progress Towards Goals Progressing Toward Goals Progress Comments Increased R hip extension, IR, and abduction ROM. LEFS increased from 41 to 42. Assessment Summary Assessment Patient has made some progress with therapy, demonstrating increased R hip ROM into extension, IR, and abduction. She also demonstrates increased R hip strength. She made minor improvement in LEFS score. She continues to have similar reports of pain as before starting therapy. She would benefit from further therapy to maximize ROM and strength especially hip abduction and extension to improve her gait pattern and ability to tolerate standing activity. Will plan to d/c to indep HEP at end of POC next month. Physical Therapy Plan Frequency and Duration Frequency of Treatment 2x/Week Duration of treatment (weeks) 8 Plan of Care Start Date 07/20/22 Plan of Care End Date 09/14/22 Therapeutic Interventions Therapeutic Interventions Gait Training,Home Exercise Program,Joint Mobilizations, Manual Therapy,Neuromuscular Re-education,Patient/Caregiver Education,Self-Care/Home Management,Soft Tissue Mobilization,Taping, Therapeutic Activities, Therapeutic Exercises Modalities Electric Stimulation,Hot Packs Next Visit Focus/Plan Next Note Type Treatment Note Next Visit Plan Progress hip extension and abduction mobility and strength as tolerated. May tolerate open-chain exercises better for now.
--- NOTE | 2022-08-20 16:43 | PT.OTN ---
Current Diagnoses Unilateral primary osteoarthritis, right hip (08/20/22) Stiffness of right hip, not elsewhere classified (08/20/22) Difficulty in walking, not elsewhere classified (08/20/22) Physical Therapy Treatment Note PT-OP-A Visit Information Start: 07/20/22 14:51 Freq: Status: Active Protocol: Document 08/20/22 14:43 ES (Rec: 08/20/22 16:42 ES [id number]) Out-Patient Physical Therapy Visit Information Visit Information Visit Type Treatment Note Visit Start Time 14:47 Visit Stop Time 15:34 Total Visit Minutes 47 Visit Number 09/09 Number of ARTISTS' BOOKING REPRESENTATIVE Visits 0 PT-OP-B Current Condition Start: 07/20/22 14:51 Freq: Status: Active Protocol: Document 07/20/22 14:51 ES (Rec: 07/20/22 16:15 ES [id number]) Current Condition History of Current Condition Onset Date 5 years ago Current Complaints R hip pain History of Current Condition Patient reported she has OA in her hip. Has been having problems with her hip for about 5 years. Has a hx of OA in her family and multiple family members have had joint replacements. Has had back pain as well for many years. Has a hx of L1 fracture. Doesn 't hurt as much now as it used to, but bothers her when doing housework. Has not done any PT for her back or hip before. Prior Treatments and Tests Had x-rays of the hip and MRI of her back about 2 years ago. Treatment Goals Patient/Caregiver Goals To be able to take her dog for walks around the neighborhood . PT-OP-C Subjective Start: 07/20/22 14:51 Freq: Status: Active Protocol: Document 08/20/22 14:43 ES (Rec: 08/20/22 16:42 ES [id number]) OP-PT Subjective Patient Comments Patient Comments Patient stated that her back has been sore from doing a lot of housework. Was not sore after last visit. Did some of her exercises but not all of them. PT-OP-G Mobility & Gait Start: 07/20/22 14:51 Freq: Status: Active Protocol: Document 07/20/22 14:51 ES (Rec: 07/20/22 16:15 ES [id number]) OP Gait Assessment Factors Limiting Gait Function Factors Limiting Gait Function Decreased Strength,Pain Comments Gait Comments Antalgic gait with gluteal lurch on R side, decreased stride length, decreased stance time on R, R hip MR/ adduction noted. PT-OP-J Posture/Palpation/Skin Start: 07/20/22 14:51 Freq: Status: Active Protocol: Document 07/20/22 14:51 ES (Rec: 07/20/22 16:15 ES [id number]) Posture Evaluation Position Standing Evaluation View Posterior Weight Distribution Weight Shifted Left,Decreased Wt.Bear on (R) Hip Posture (R) Flexed,(R) Internally Rotated,(R) Adducted Knee Posture (R) Genu Valgus PT-OP-K Range of Motion Start: 07/20/22 14:51 Freq: Status: Active Protocol: Document 08/17/22 13:33 ES (Rec: 08/17/22 14:42 ES [id number]) Hip Goniometric Range of Motion Hip Right Passive Flexion w/Knee Flexed 115 Extension 0 Abduction 18 Internal Rotation 22 External Rotation 55 PT-OP-M Strength Start: 07/20/22 14:51 Freq: Status: Active Protocol: Document 08/17/22 13:33 ES (Rec: 08/17/22 14:42 ES [id number]) Hip Strength Hip Manual Muscle Testing Right Flexion (L2) 5 Normal Extension (S1) 4+ Good+ Abduction 3 Fair External Rotation 4 Good Internal Rotation 4 Good PT-OP-Q Treatments Start: 07/20/22 14:51 Freq: Status: Active Protocol: Document 08/20/22 14:43 ES (Rec: 08/20/22 16:42 ES [id number]) Cardio Equipment Recumbent Elliptical ([employer]) Duration (Minutes) 10 Resistance 4 Seat Position 8 Other L1 band loop around knees ( stepper not available) Therapeutic Exercises Prone Exercises IR/ER RROM Side right Resistance Light manual Reps/Minutes x10 ea Hip abd Side right Reps/Minutes 2x10 Comments cued for hip vs trunk motion Hip Extension Side right Reps/Minutes 2x10 Comments cued for hip vs trunk motion Manual Therapy Treatment Joint Mobilizations R Hip Direction Caudal, Lateral, Anterior Grade III Comments Supine belt-assisted for inferior and lateral in hip flexion. Prone over pillow for anterior glide. 1 Joint Long axis traction Direction Caudal Grade III Body Position Supine Reps/Duration 3x60s PT-OP-R Modalities Start: 07/20/22 14:51 Freq: Status: Active Protocol: Document 08/13/22 14:39 SW (Rec: 08/13/22 16:13 SW [id number]) Hot Pack/Cold Pack Treatment Hot Pack Patient Position Sidelying Treatment Duration (minutes) 15 Patient Tolerance Fair Comments Lumbar pack over R hip pillow between knees, scott within reach PT-OP-T Assessment and Plan Start: 07/20/22 14:51 Freq: Status: Active Protocol: Document 08/20/22 14:43 ES (Rec: 08/20/22 16:42 ES [id number]) Physical Therapy Assessment Impairments Impairments Functional Activities, Functional Mobility,Gait,Pain, ROM,Strength Goals Four Impairment Function Food Order Delivery Runner Goal (LTG) Patient will have an increase in LEFS score to 50 indicating clinically significant change . LTG Duration 8 weeks - progressing Two Impairment Function/gait Shelter Goal (LTG) Patient will be able to walk 4 blocks with 3/10 pain at worst. LTG Duration 8 weeks - no progress One Impairment ROM Short Term Goal (STG) Patient will increase R hip ROM by 5 degrees all directions. STG Duration 4 weeks - progressing Three Impairment HEP Impairment . Shelter Goal (LTG) Patient will be indep with HEP for ROM and strength. LTG Duration 8 weeks - progressing Assessment Summary Assessment Patient was fatigued with prone ER RROM due to weakness in deep rotators in extension. She had improved gait pattern with decreased pain following treatment today. Educated patient to perform prone ex's at home if better tolerated than standing ex's. Physical Therapy Plan Frequency and Duration Frequency of Treatment 2x/Week Duration of treatment (weeks) 8 Plan of Care Start Date 07/20/22 Plan of Care End Date 09/14/22 Therapeutic Interventions Therapeutic Interventions Gait Training,Home Exercise Program,Joint Mobilizations, Manual Therapy,Neuromuscular Re-education,Patient/Caregiver Education,Self-Care/Home Management,Soft Tissue Mobilization,Taping, Therapeutic Activities, Therapeutic Exercises Modalities Electric Stimulation,Hot Packs Next Visit Focus/Plan Next Note Type Treatment Note Next Visit Plan Continue with joint mobs/ manual therapy as needed. Continue prone ex's; consider adding band to IR/ER vs manual resistance.
--- NOTE | 2022-08-24 14:34 | PT.OTN ---
Current Diagnoses Unilateral primary osteoarthritis, right hip (08/24/22) Stiffness of right hip, not elsewhere classified (08/24/22) Difficulty in walking, not elsewhere classified (08/24/22) Physical Therapy Treatment Note PT-OP-A Visit Information Start: 07/20/22 14:51 Freq: Status: Active Protocol: Document 08/24/22 13:55 ES (Rec: 08/24/22 14:34 ES [id number]) Out-Patient Physical Therapy Visit Information Visit Information Visit Type Treatment Note Visit Start Time 13:52 Visit Stop Time 14:30 Total Visit Minutes 38 Visit Number 10/10 Number of CHAMFERING MACHINE OPERATOR Visits 0 Evaluation Information Evaluation Date 07/20/22 PT-OP-B Current Condition Start: 07/20/22 14:51 Freq: Status: Active Protocol: Document 07/20/22 14:51 ES (Rec: 07/20/22 16:15 ES [id number]) Current Condition History of Current Condition Onset Date 5 years ago Current Complaints R hip pain History of Current Condition Patient reported she has OA in her hip. Has been having problems with her hip for about 5 years. Has a hx of OA in her family and multiple family members have had joint replacements. Has had back pain as well for many years. Has a hx of L1 fracture. Doesn 't hurt as much now as it used to, but bothers her when doing housework. Has not done any PT for her back or hip before. Prior Treatments and Tests Had x-rays of the hip and MRI of her back about 2 years ago. Treatment Goals Patient/Caregiver Goals To be able to take her dog for walks around the neighborhood . PT-OP-C Subjective Start: 07/20/22 14:51 Freq: Status: Active Protocol: Document 08/24/22 13:55 ES (Rec: 08/24/22 14:34 ES [id number]) OP-PT Subjective Patient Comments Patient Comments Patient reported that she felt good after the last visit and the day after. Had a busy weekend and her legs are both sore today. Didn't do the hip rotation exercise at home, didn't have a place to do it. PT-OP-G Mobility & Gait Start: 07/20/22 14:51 Freq: Status: Active Protocol: Document 07/20/22 14:51 ES (Rec: 07/20/22 16:15 ES [id number]) OP Gait Assessment Factors Limiting Gait Function Factors Limiting Gait Function Decreased Strength,Pain Comments Gait Comments Antalgic gait with gluteal lurch on R side, decreased stride length, decreased stance time on R, R hip MR/ adduction noted. PT-OP-J Posture/Palpation/Skin Start: 07/20/22 14:51 Freq: Status: Active Protocol: Document 07/20/22 14:51 ES (Rec: 07/20/22 16:15 ES [id number]) Posture Evaluation Position Standing Evaluation View Posterior Weight Distribution Weight Shifted Left,Decreased Wt.Bear on (R) Hip Posture (R) Flexed,(R) Internally Rotated,(R) Adducted Knee Posture (R) Genu Valgus PT-OP-K Range of Motion Start: 07/20/22 14:51 Freq: Status: Active Protocol: Document 08/17/22 13:33 ES (Rec: 08/17/22 14:42 ES [id number]) Hip Goniometric Range of Motion Hip Right Passive Flexion w/Knee Flexed 115 Extension 0 Abduction 18 Internal Rotation 22 External Rotation 55 PT-OP-M Strength Start: 07/20/22 14:51 Freq: Status: Active Protocol: Document 08/17/22 13:33 ES (Rec: 08/17/22 14:42 ES [id number]) Hip Strength Hip Manual Muscle Testing Right Flexion (L2) 5 Normal Extension (S1) 4+ Good+ Abduction 3 Fair External Rotation 4 Good Internal Rotation 4 Good PT-OP-Q Treatments Start: 07/20/22 14:51 Freq: Status: Active Protocol: Document 08/24/22 13:55 ES (Rec: 08/24/22 14:34 ES [id number]) Cardio Equipment Recumbent Stepper (Sci-Fit) Duration (Minutes) 8 Resistance 3.0 Seat Position 11 Other yellow band around knees for hip abd Therapeutic Exercises Prone Exercises IR/ER RROM Side right Resistance L1 band Reps/Minutes 2x10 ea Comments Instructed for home, no resistance at home for now, slow Hip Extension Side right Reps/Minutes 2x10 Comments with knee flexion to isolate glute max Manual Therapy Treatment Joint Mobilizations R Hip Direction Caudal, Lateral, Anterior Grade III Comments Supine belt-assisted for inferior and lateral in hip flexion. Prone over pillow for anterior glide. PT-OP-R Modalities Start: 07/20/22 14:51 Freq: Status: Active Protocol: Document 08/13/22 14:39 SW (Rec: 08/13/22 16:13 SW [id number]) Hot Pack/Cold Pack Treatment Hot Pack Patient Position Sidelying Treatment Duration (minutes) 15 Patient Tolerance Fair Comments Lumbar pack over R hip pillow between knees, scott within reach PT-OP-T Assessment and Plan Start: 07/20/22 14:51 Freq: Status: Active Protocol: Document 08/24/22 13:55 ES (Rec: 08/24/22 14:34 ES [id number]) Physical Therapy Assessment Goals Four Impairment Function Mcc Goal (LTG) Patient will have an increase in LEFS score to 50 indicating clinically significant change . LTG Duration 8 weeks - progressing Two Impairment Function/gait Income Tax Consultant Goal (LTG) Patient will be able to walk 4 blocks with 3/10 pain at worst. LTG Duration 8 weeks - no progress One Impairment ROM Short Term Goal (STG) Patient will increase R hip ROM by 5 degrees all directions. STG Duration 4 weeks - progressing Three Impairment HEP Impairment . Mcc Goal (LTG) Patient will be indep with HEP for ROM and strength. LTG Duration 8 weeks - progressing Assessment Summary Assessment Patient again reported decreased pain and had improved gait pattern following therapy. She tolerated increased resistance and reps of hip IR/ER RROM this visit without problem. She will benefit from further deep rotator strengthening to provide increased hip joint stability for standing and walking. Physical Therapy Plan Frequency and Duration Frequency of Treatment 2x/Week Duration of treatment (weeks) 8 Plan of Care Start Date 07/20/22 Plan of Care End Date 09/14/22 Therapeutic Interventions Therapeutic Interventions Gait Training,Home Exercise Program,Joint Mobilizations, Manual Therapy,Neuromuscular Re-education,Patient/Caregiver Education,Self-Care/Home Management,Soft Tissue Mobilization,Taping, Therapeutic Activities, Therapeutic Exercises Modalities Electric Stimulation,Hot Packs Next Visit Focus/Plan Next Note Type Treatment Note Next Visit Plan Continue with joint mobs/ manual therapy as needed. Continue prone ex's, increased resistance as tolerated.
--- NOTE | 2022-09-03 16:18 | PT.OTN ---
Current Diagnoses Unilateral primary osteoarthritis, right hip (09/03/22) Stiffness of right hip, not elsewhere classified (09/03/22) Difficulty in walking, not elsewhere classified (09/03/22) Physical Therapy Treatment Note PT-OP-A Visit Information Start: 07/20/22 14:51 Freq: Status: Active Protocol: Document 09/03/22 13:49 SW (Rec: 09/03/22 16:15 SW [id number]) Out-Patient Physical Therapy Visit Information Visit Information Visit Type Treatment Note Visit Start Time 13:47 Visit Stop Time 14:32 Total Visit Minutes 45 Visit Number 11/10 Number of HEALTH AND SAFETY INSTRUCTOR Visits 1 PT-OP-B Current Condition Start: 07/20/22 14:51 Freq: Status: Active Protocol: Document 07/20/22 14:51 ES (Rec: 07/20/22 16:15 ES [id number]) Current Condition History of Current Condition Onset Date 5 years ago Current Complaints R hip pain History of Current Condition Patient reported she has OA in her hip. Has been having problems with her hip for about 5 years. Has a hx of OA in her family and multiple family members have had joint replacements. Has had back pain as well for many years. Has a hx of L1 fracture. Doesn 't hurt as much now as it used to, but bothers her when doing housework. Has not done any PT for her back or hip before. Prior Treatments and Tests Had x-rays of the hip and MRI of her back about 2 years ago. Treatment Goals Patient/Caregiver Goals To be able to take her dog for walks around the neighborhood . PT-OP-C Subjective Start: 07/20/22 14:51 Freq: Status: Active Protocol: Document 09/03/22 13:49 SW (Rec: 09/03/22 16:15 SW [id number]) OP-PT Subjective Patient Comments Patient Comments Pt reports she has been feeling pretty good the last few days, but still in pain. PT-OP-G Mobility & Gait Start: 07/20/22 14:51 Freq: Status: Active Protocol: Document 07/20/22 14:51 ES (Rec: 07/20/22 16:15 ES [id number]) OP Gait Assessment Factors Limiting Gait Function Factors Limiting Gait Function Decreased Strength,Pain Comments Gait Comments Antalgic gait with gluteal lurch on R side, decreased stride length, decreased stance time on R, R hip MR/ adduction noted. PT-OP-J Posture/Palpation/Skin Start: 07/20/22 14:51 Freq: Status: Active Protocol: Document 07/20/22 14:51 ES (Rec: 07/20/22 16:15 ES [id number]) Posture Evaluation Position Standing Evaluation View Posterior Weight Distribution Weight Shifted Left,Decreased Wt.Bear on (R) Hip Posture (R) Flexed,(R) Internally Rotated,(R) Adducted Knee Posture (R) Genu Valgus PT-OP-K Range of Motion Start: 07/20/22 14:51 Freq: Status: Active Protocol: Document 08/17/22 13:33 ES (Rec: 08/17/22 14:42 ES [id number]) Hip Goniometric Range of Motion Hip Right Passive Flexion w/Knee Flexed 115 Extension 0 Abduction 18 Internal Rotation 22 External Rotation 55 PT-OP-M Strength Start: 07/20/22 14:51 Freq: Status: Active Protocol: Document 08/17/22 13:33 ES (Rec: 08/17/22 14:42 ES [id number]) Hip Strength Hip Manual Muscle Testing Right Flexion (L2) 5 Normal Extension (S1) 4+ Good+ Abduction 3 Fair External Rotation 4 Good Internal Rotation 4 Good PT-OP-Q Treatments Start: 07/20/22 14:51 Freq: Status: Active Protocol: Document 09/03/22 13:49 SW (Rec: 09/03/22 16:15 SW [id number]) Cardio Equipment Recumbent Stepper (Sci-Fit) Duration (Minutes) 8 Resistance 3.3 Seat Position 11 Therapeutic Exercises Prone Exercises IR/ER RROM Side right Resistance 2 Reps/Minutes 2x10 ea Comments cued for core stabilization Hip Extension Side right Reps/Minutes 2x10 Comments with knee flexion to isolate glute max Sidelying Exercises Hip Abd Sidelying Exercise Name Hip abd strength Side right Reps/Minutes 2 x 10 Comments cued for smaller range to decrease hip flexor compensation Manual Therapy Treatment Joint Mobilizations R Hip Direction Caudal, Lateral, Anterior Grade III Comments Supine belt-assisted for inferior and lateral in hip flexion. Prone over pillow for anterior glide. 1 Joint Long axis traction Direction Caudal Grade III Body Position Supine Reps/Duration 3x60s Manual Techniques PNF hip abd stretch Type abd stretch Body Location R hip Body Position Sidelying Comments verbal/tactile feedback for stabilization contract/relax PNF hip ext stretch Type ext stretch with knee flexion Body Location R hip Body Position Sidelying Comments verbal/tactile feedback for stabilization contract/relax PT-OP-R Modalities Start: 07/20/22 14:51 Freq: Status: Active Protocol: Document 08/13/22 14:39 SW (Rec: 08/13/22 16:13 SW [id number]) Hot Pack/Cold Pack Treatment Hot Pack Patient Position Sidelying Treatment Duration (minutes) 15 Patient Tolerance Fair Comments Lumbar pack over R hip pillow between knees, scott within reach PT-OP-T Assessment and Plan Start: 07/20/22 14:51 Freq: Status: Active Protocol: Document 09/03/22 13:49 SW (Rec: 09/03/22 16:15 SW [id number]) Physical Therapy Assessment Goals Four Impairment Function Long-Term Goal (LTG) Patient will have an increase in LEFS score to 50 indicating clinically significant change . LTG Duration 8 weeks - progressing Two Impairment Function/gait Shell Molding Roller Blast Operator Goal (LTG) Patient will be able to walk 4 blocks with 3/10 pain at worst. LTG Duration 8 weeks - no progress One Impairment ROM Short Term Goal (STG) Patient will increase R hip ROM by 5 degrees all directions. STG Duration 4 weeks - progressing Three Impairment HEP Impairment . Long-Term Goal (LTG) Patient will be indep with HEP for ROM and strength. LTG Duration 8 weeks - progressing Assessment Summary Assessment Pt tolerated tx well with no increase in pain. Pt left session with decreased pain and decreased limp. Continued strengthening progression in open chain and initiated PNF technique for increasing ROM. Discussed carryover of HEP, plan to review all HEP and all goals next session. Physical Therapy Plan Frequency and Duration Frequency of Treatment 2x/Week Duration of treatment (weeks) 8 Plan of Care Start Date 07/20/22 Plan of Care End Date 09/14/22 Therapeutic Interventions Therapeutic Interventions Gait Training,Home Exercise Program,Joint Mobilizations, Manual Therapy,Neuromuscular Re-education,Patient/Caregiver Education,Self-Care/Home Management,Soft Tissue Mobilization,Taping, Therapeutic Activities, Therapeutic Exercises Modalities Electric Stimulation,Hot Packs Next Visit Focus/Plan Next Note Type Treatment Note Next Visit Plan Continue with joint mobs/ manual therapy as needed. Continue prone ex's, increased resistance as tolerated.
--- NOTE | 2022-09-09 15:04 | PT.OTN ---
Current Diagnoses Unilateral primary osteoarthritis, right hip (09/09/22) Stiffness of right hip, not elsewhere classified (09/09/22) Difficulty in walking, not elsewhere classified (09/09/22) Physical Therapy Treatment Note PT-OP-A Visit Information Start: 07/20/22 14:51 Freq: Status: Active Protocol: Document 09/09/22 13:50 SW (Rec: 09/09/22 15:03 SW [id number]) Out-Patient Physical Therapy Visit Information Visit Information Visit Type Treatment Note Visit Start Time 13:45 Visit Stop Time 13:30 Total Visit Minutes 45 Visit Number 12/10 Number of COTTON BAG SEWER Visits 2 PT-OP-B Current Condition Start: 07/20/22 14:51 Freq: Status: Active Protocol: Document 07/20/22 14:51 ES (Rec: 07/20/22 16:15 ES [id number]) Current Condition History of Current Condition Onset Date 5 years ago Current Complaints R hip pain History of Current Condition Patient reported she has OA in her hip. Has been having problems with her hip for about 5 years. Has a hx of OA in her family and multiple family members have had joint replacements. Has had back pain as well for many years. Has a hx of L1 fracture. Doesn 't hurt as much now as it used to, but bothers her when doing housework. Has not done any PT for her back or hip before. Prior Treatments and Tests Had x-rays of the hip and MRI of her back about 2 years ago. Treatment Goals Patient/Caregiver Goals To be able to take her dog for walks around the neighborhood . PT-OP-C Subjective Start: 07/20/22 14:51 Freq: Status: Active Protocol: Document 09/09/22 13:50 SW (Rec: 09/09/22 15:03 SW [id number]) OP-PT Subjective Patient Comments Patient Comments Pt reports she has been feeling sore in her R hip and back, did a lot of gardening. PT-OP-G Mobility & Gait Start: 07/20/22 14:51 Freq: Status: Active Protocol: Document 07/20/22 14:51 ES (Rec: 07/20/22 16:15 ES [id number]) OP Gait Assessment Factors Limiting Gait Function Factors Limiting Gait Function Decreased Strength,Pain Comments Gait Comments Antalgic gait with gluteal lurch on R side, decreased stride length, decreased stance time on R, R hip MR/ adduction noted. PT-OP-J Posture/Palpation/Skin Start: 07/20/22 14:51 Freq: Status: Active Protocol: Document 07/20/22 14:51 ES (Rec: 07/20/22 16:15 ES [id number]) Posture Evaluation Position Standing Evaluation View Posterior Weight Distribution Weight Shifted Left,Decreased Wt.Bear on (R) Hip Posture (R) Flexed,(R) Internally Rotated,(R) Adducted Knee Posture (R) Genu Valgus PT-OP-K Range of Motion Start: 07/20/22 14:51 Freq: Status: Active Protocol: Document 09/09/22 13:50 SW (Rec: 09/09/22 15:03 SW [id number]) Hip Goniometric Range of Motion Hip Left Passive Hip ROM WFL Yes Testing Position Supine Flexion w/Knee Flexed 130 Extension 0 Abduction 25 Internal Rotation 35 External Rotation 65 Right Passive Flexion w/Knee Flexed 116 Abduction 19 Internal Rotation 21 External Rotation 55 Comments Lacking 1 degree extension PT-OP-M Strength Start: 07/20/22 14:51 Freq: Status: Active Protocol: Document 09/09/22 13:50 SW (Rec: 09/09/22 15:03 SW [id number]) Hip Strength Hip Manual Muscle Testing Left Flexion (L2) 5 Normal Extension (S1) 5 Normal Abduction 3+ Fair+ Adduction 4 Good External Rotation 4- Good- Internal Rotation 4 Good Right Flexion (L2) 5 Normal Extension (S1) 4 Good Abduction 4+ Good+ External Rotation 4 Good Internal Rotation 4 Good PT-OP-Q Treatments Start: 07/20/22 14:51 Freq: Status: Active Protocol: Document 09/09/22 13:50 SW (Rec: 09/09/22 15:03 SW [id number]) Cardio Equipment Recumbent Stepper (Sci-Fit) Duration (Minutes) 8 Resistance 3.5 Seat Position 11 Therapeutic Exercises Supine Exercises Bridge Reps/Minutes 1x5 sec Comments HEP Hip flexor stretch Side right Reps/Minutes 1 Comments Off edge of bed Piriformis stretch Side right Reps/Minutes 1x5 Figure 4 stretch Side right Reps/Minutes 1 Comments (HEP) 1 Supine Exercise Name Long axis leg traction Side right Equipment Used purple band Reps/Minutes x2 minutes Comments Instructed for home, band provided Prone Exercises Hip abd Side right Reps/Minutes 2x10 Comments cued for hip vs trunk motion Hip Extension Side right Reps/Minutes x3 Comments with knee flexion to isolate glute max Sidelying Exercises Hip Abd Sidelying Exercise Name Hip abd strength Side right Reps/Minutes x2 Comments cued for smaller range to decrease hip flexor compensation Clamshell Side right Resistance L1 band at knees Reps/Minutes x3 Comments HEP Standing Exercises Sidestepping Side bilateral Comments Discussed HEP progression Manual Therapy Treatment Other Other Manual Treatments MMT, ROM, LEFS Self-Care/Home Management Treatment Education Patient Education Home Exercise Program Other Education Educated on HEP ex execution and progressions for ind at home. PT-OP-R Modalities Start: 07/20/22 14:51 Freq: Status: Active Protocol: Document 08/13/22 14:39 SW (Rec: 08/13/22 16:13 SW [id number]) Hot Pack/Cold Pack Treatment Hot Pack Patient Position Sidelying Treatment Duration (minutes) 15 Patient Tolerance Fair Comments Lumbar pack over R hip pillow between knees, scott within reach PT-OP-T Assessment and Plan Start: 07/20/22 14:51 Freq: Status: Active Protocol: Document 09/09/22 13:50 SW (Rec: 09/09/22 15:03 SW [id number]) Physical Therapy Assessment Goals Four Impairment Function Photographic Press Screwmaker Goal (LTG) Patient will have an increase in LEFS score to 50 indicating clinically significant change . 09/09/22- 48 LTG Duration 8 weeks - progressing Two Impairment Function/gait Photographic Press Screwmaker Goal (LTG) Patient will be able to walk 4 blocks with 3/10 pain at worst. 09/09/22- Pt can walk 4 blocks with a pain level of 3/10 LTG Duration 8 weeks - no progress One Impairment ROM Short Term Goal (STG) Patient will increase R hip ROM by 5 degrees all directions. STG Duration 4 weeks - progressing Three Impairment HEP Impairment . Care Home Goal (LTG) Patient will be indep with HEP for ROM and strength. LTG Duration 8 weeks - progressing Assessment Summary Assessment Assessed patient ROM, Strength , Subjective, and LEFS score today. Reviewed HEP for carryover at home and discussed progressions for continued progress, pt confirmed she has HOs for HEP. Physical Therapy Plan Frequency and Duration Frequency of Treatment 2x/Week Duration of treatment (weeks) 8 Plan of Care Start Date 07/20/22 Plan of Care End Date 09/14/22 Therapeutic Interventions Therapeutic Interventions Gait Training,Home Exercise Program,Joint Mobilizations, Manual Therapy,Neuromuscular Re-education,Patient/Caregiver Education,Self-Care/Home Management,Soft Tissue Mobilization,Taping, Therapeutic Activities, Therapeutic Exercises Modalities Electric Stimulation,Hot Packs Next Visit Focus/Plan Next Note Type Treatment Note
--- NOTE | 2022-09-10 10:34 | PT.OPDS ---
Current Diagnoses Unilateral primary osteoarthritis, right hip (09/09/22) Stiffness of right hip, not elsewhere classified (09/09/22) Difficulty in walking, not elsewhere classified (09/09/22) Visit Care Team Role Provider Type Haley Pereyra MD Attending Provider Non-Staff Family Provider Primary Care Provider Referring Provider Specialty: Family Practice Address: [facility] [address] [place], [address] Email: Visit Number Visit Number 12/10 Discharge Summary PT-OP-B Current Condition Start: 07/20/22 14:51 Freq: Status: Active Protocol: Document 07/20/22 14:51 ES (Rec: 07/20/22 16:15 ES [id number]) Current Condition History of Current Condition Onset Date 5 years ago Current Complaints R hip pain History of Current Condition Patient reported she has OA in her hip. Has been having problems with her hip for about 5 years. Has a hx of OA in her family and multiple family members have had joint replacements. Has had back pain as well for many years. Has a hx of L1 fracture. Doesn 't hurt as much now as it used to, but bothers her when doing housework. Has not done any PT for her back or hip before. Prior Treatments and Tests Had x-rays of the hip and MRI of her back about 2 years ago. Treatment Goals Patient/Caregiver Goals To be able to take her dog for walks around the neighborhood . PT-OP-C Subjective Start: 07/20/22 14:51 Freq: Status: Active Protocol: Document 09/10/22 10:27 ES (Rec: 09/10/22 10:34 ES [id number]) Patient Questionnaires Lower Extremity Functional Scale LEFS Score 48 LEFS Impairment 20 to 39% Impaired (Score 48- 62) PT-OP-G Mobility & Gait Start: 07/20/22 14:51 Freq: Status: Active Protocol: Document 07/20/22 14:51 ES (Rec: 07/20/22 16:15 ES [id number]) OP Gait Assessment Factors Limiting Gait Function Factors Limiting Gait Function Decreased Strength,Pain Comments Gait Comments Antalgic gait with gluteal lurch on R side, decreased stride length, decreased stance time on R, R hip MR/ adduction noted. PT-OP-J Posture/Palpation/Skin Start: 07/20/22 14:51 Freq: Status: Active Protocol: Document 07/20/22 14:51 ES (Rec: 07/20/22 16:15 ES [id number]) Posture Evaluation Position Standing Evaluation View Posterior Weight Distribution Weight Shifted Left,Decreased Wt.Bear on (R) Hip Posture (R) Flexed,(R) Internally Rotated,(R) Adducted Knee Posture (R) Genu Valgus PT-OP-K Range of Motion Start: 07/20/22 14:51 Freq: Status: Active Protocol: Document 09/09/22 13:50 SW (Rec: 09/09/22 15:03 SW [id number]) Hip Goniometric Range of Motion Hip Left Passive Hip ROM WFL Yes Testing Position Supine Flexion w/Knee Flexed 130 Extension 0 Abduction 25 Internal Rotation 35 External Rotation 65 Right Passive Flexion w/Knee Flexed 116 Abduction 19 Internal Rotation 21 External Rotation 55 Comments Lacking 1 degree extension PT-OP-M Strength Start: 07/20/22 14:51 Freq: Status: Active Protocol: Document 09/09/22 13:50 SW (Rec: 09/09/22 15:03 SW [id number]) Hip Strength Hip Manual Muscle Testing Left Flexion (L2) 5 Normal Extension (S1) 5 Normal Abduction 3+ Fair+ Adduction 4 Good External Rotation 4- Good- Internal Rotation 4 Good Right Flexion (L2) 5 Normal Extension (S1) 4 Good Abduction 4+ Good+ External Rotation 4 Good Internal Rotation 4 Good PT-OP-T Assessment and Plan Start: 07/20/22 14:51 Freq: Status: Active Protocol: Document 09/10/22 10:27 ES (Rec: 09/10/22 10:34 ES [id number]) Physical Therapy Assessment Goals Four Impairment Function Correction Goal (LTG) Patient will have an increase in LEFS score to 50 indicating clinically significant change . 09/09/22- 48 LTG Duration 8 weeks - partially met Two Impairment Function/gait Correction Goal (LTG) Patient will be able to walk 4 blocks with 3/10 pain at worst. 09/09/22- Pt can walk 4 blocks with a pain level of 3/10 LTG Duration 8 weeks - met One Impairment ROM Short Term Goal (STG) Patient will increase R hip ROM by 5 degrees all directions. STG Duration 4 weeks - partially met Three Impairment HEP Impairment . Field Marketing Representative Goal (LTG) Patient will be indep with HEP for ROM and strength. LTG Duration 8 weeks - met Progress Towards Goals Progress Towards Goals Progressing Toward Goals Assessment Summary Assessment Patient was seen for a total of 10 visits in PT for manual therapy, stretching, strengthening, gait training, and patient education on joint protection and HEP. She has made some progress with PT, demonstrating increased hip ROM, increased strength, overall decrease in pain, and improved function. She has been instructed in HEP to continue with in order to further improve her ROM and strength to continue to address the remaining impairments. Recommend she continue with indep program at this time and patient agrees to this. Physical Therapy Plan Discharge Physical Therapy Discharge Reasons Plateau in Progress
== END 2022-09-11 09:54 | disposition home or self-care (01) ==
LOC: PHYS 13:45
PROVIDERS: Family Provider Family Medicine; PCP Family Medicine; Referring Provider Family Medicine; Visit Provider Family Medicine
DX: M16.11 Unilateral primary osteoarthritis, right hip (principal); M25.651 Stiffness of right hip, not elsewhere classified; R26.2 Difficulty in walking, not elsewhere classified
CPT/HCPCS: 97010; 97110; 97140; 97161; 97535

== ENCOUNTER → 2023-06-17 07:48 | Outpatient (CLI) | payer OTHER, MEDICAID, SELFPAY ==
--- NOTE | 2023-06-17 07:50 | DI.RAD.S_ITS ---
PROCEDURE: XR HIP W PEL IF DONE RT 2V INDICATIONS: chronic R hip pain x 2+ years TECHNIQUE: 2 views of the hip were acquired. COMPARISON: [facility], END[facility], XR HIP W PEL IF DONE RT 2V, 06/07/2018, 11:40. FINDINGS: Bones: Severe degenerative change of the right hip, significantly progressed in comparison to prior exam. No acute fracture or dislocation right hip . Soft tissues: No suspicious soft tissue calcifications or masses. IMPRESSION: Severe degenerative changes right hip, progressed from prior exam. Dictated by: Maryann Sylvester M.D. on 06/17/2023 at 13:51 Approved by: Maryann Sylvester M.D. on 06/17/2023 at 13:53
[2023-06-17 08:47] LABS: Add Manual Diff / Slide Review NO; Basophils Absolute Auto 100 /uL (0-100); Basophils Percent Auto 0.7 % (0-2); Eosinophils Absolute Auto 200 /uL (0-450); Eosinophils Percent Auto 2.5 % (2-4); Hematocrit 39.8 % (36-46); Hemoglobin 13.3 g/dL (12.0-16.0); Lymphocytes Absolute Auto 2100 /uL (1100-4500); Lymphocytes Percent Auto 26.7 % (25-40); Mean Corpuscular HGB Conc 33.6 % (30-36); Mean Corpuscular Hemoglobin 30.6 PG (26-34); Mean Corpuscular Volume 91.3 fL (80-100); Monocytes Absolute Auto 700 /uL (0-900); Monocytes Percent Auto 8.6 % (3-14); Neutrophils Absolute Auto 4800 /uL (1500-7000); Neutrophils Percent Auto 61.5 % (50-75); Platelet Count 283 X10^3/uL (150-400); Red Blood Cell Count 4.36 X10^6/uL (4.0-5.2); White Blood Cell Count 7.8 X10^3/uL (4.5-11.0)
[2023-06-17 09:02] LABS: Alanine Aminotransferase 20 IU/L (<35); Albumin 4.2 g/dL (3.5-5.0); Albumin Globulin Ratio 1.4 (1.0-2.8); Alkaline Phosphatase 72 U/L (38-126); Aspartate Aminotransferase 29 IU/L (14-36); BUN Creatinine Ratio 23.1 (6-22); Bilirubin Total 0.6 mg/dL (0.2-1.3); Blood Urea Nitrogen 15 mg/dL (7-17); Calcium 9.4 mg/dL (8.4-10.2); Carbon Dioxide 31 mmol/L (22-32); Chloride 107 mmol/L (98-107); Cholesterol 228 mg/dL (140-199); Estimated Glomerular Filt Rate > 60 mL/min (>60); Globulin 2.9 g/dL (1.7-4.1); Glucose 93 mg/dL (80-110); HDL Cholesterol 60 mg/dL (40-60); HEMOLYSIS < 15 (0-50); LDL Cholesterol Calculated 154 mg/dL (<100); Potassium 3.9 mmol/L (3.4-5.1); Sodium 140 mmol/L (137-145); Total Protein 7.1 g/dL (6.3-8.2); Triglycerides 70 mg/dL (35-150)
[2023-06-17 09:32] LABS: TSH w/ Reflex to FT4 3.84 uIU/mL (0.47-4.68)
== END ==
PROVIDERS: Family Provider Family Medicine; PCP Family Medicine; Referring Provider Family Medicine; Visit Provider Family Medicine
DX: F32.A Depression, unspecified (principal); E05.90 Thyrotoxicosis, unspecified without thyrotoxic crisis or storm; F41.9 Anxiety disorder, unspecified; E78.5 Hyperlipidemia, unspecified; Z98.890 Other specified postprocedural states; M25.551 Pain in right hip; Z90.89 Acquired absence of other organs
CPT/HCPCS: 36415; 73502; 80053; 80061; 84443; 85025

== ENCOUNTER → 2023-06-24 11:02 | Outpatient (CLI) | payer OTHER, MEDICAID, SELFPAY ==
--- NOTE | 2023-06-24 11:02 | DI.RAD.S_ITS ---
PROCEDURE: XR DEXA AXIAL SKELETON INDICATIONS: asymptomatic age related postmenopausal state COMPARISON: [facility], CR, XR LUMBAR SPINE 2 OR 3 VIEWS, 11/01/2020, 12:48. FINDINGS: Lumbar Spine: Bone mineral density 1.100 g/cm2, T score 0.5. Left Hip: Bone mineral density 0.769 g/cm2, T score -1.4. Left Femoral Neck: Bone mineral density 0.758 g/cm2, T score -0.8. Right Hip: Bone mineral density 0.767 g/cm2, T score -1.4. Right Femoral Neck: Bone mineral density 0.523 g/cm2, T score -2.9. Fracture Risk Calculation (when applicable): Not provided due to osteoporosis. (T score greater or equal to -1.0 to: NORMAL) (T score from -1.1 to -2.4: OSTEOPENIA) (T score less than or equal to -2.5: OSTEOPOROSIS) IMPRESSION: Osteoporosis. Follow-up guidelines as follows: Osteoporosis: Consider a repeat DEXA and Vertebral Fracture Assessment (VFA) exam in 2 years or sooner if medically necessary, to reassess this patient's status. Osteopenia: Consider a repeat DEXA in 2-3 years to reassess this patient's status, or if there is a new clinical indication. Normal: Consider a repeat DEXA in 5 years or sooner, or if there is a new clinical indication. Dictated by: Felton Allen M.D. on 06/24/2023 at 22:05 Approved by: Felton Allen M.D. on 06/24/2023 at 22:07
== END ==
PROVIDERS: Family Provider Family Medicine; PCP Family Medicine; Referring Provider Family Medicine; Visit Provider Family Medicine
DX: M81.0 Age-related osteoporosis without current pathological fracture (principal); Z78.0 Asymptomatic menopausal state
CPT/HCPCS: 77080